=== PATIENT | male | born 1970 | race Caucasian/White ===

== ENCOUNTER 2020-08-13 11:51 | Outpatient (REF) | payer BC, SELFPAY ==
[2020-08-13 13:29] LABS: Anion Gap 10 (12-20); Blood Urea Nitrogen 16 mg/dL (9-16); Calcium 9.5 mg/dL (8.4-10.2); Carbon Dioxide 30 mmol/L (22-29); Chloride 104 mmol/L (96-108); Cholesterol 165 mg/dL; Estimated Glomerular Filt Rate > 60; Glucose Fasting 87 mg/dL (60-99); HDL Cholesterol 45 mg/dL; LDL Cholesterol Calculated 98 mg/dl; Potassium 4.8 mmol/l (3.3-5.1); Sodium 139 mmol/L (135-145); Triglycerides 113 mg/dL
[2020-08-13 13:54] LABS: Prostate Specific Antigen Scr 0.38 ng/mL (<0.05-4.0)
== END 2020-08-13 11:52 | disposition home or self-care (01) ==
LOC: HO.LAB 11:51
PROVIDERS: PCP Nurse Practitioner Family; Visit Provider Nurse Practitioner Family
DX: Z00.00 Encounter for general adult medical examination without abnormal findings (principal); Z12.5 Encounter for screening for malignant neoplasm of prostate; I48.0 Paroxysmal atrial fibrillation
CPT/HCPCS: 80048; 80061; 84153; 84443

== ENCOUNTER 2020-11-19 11:32 | Outpatient (REF) | payer BC, SELFPAY ==
[2020-11-19 11:35] LABS: Urine Cytology See Pathology rpt
== END 2020-11-19 11:33 | disposition home or self-care (01) ==
LOC: HO.LNP 11:32
PROVIDERS: Visit Provider Nurse Practitioner Family
DX: R31.29 Other microscopic hematuria (principal); N39.0 Urinary tract infection, site not specified; Z12.11 Encounter for screening for malignant neoplasm of colon
CPT/HCPCS: 87086; 88112

== ENCOUNTER → 2021-01-05 11:07 | Outpatient (BNVA) | payer BC, SELFPAY | PROVIDERS: PCP Nurse Practitioner Family; Visit Provider Physician Assistant ==

== ENCOUNTER → 2021-01-18 08:48 | Outpatient (BNVA) | payer BC, SELFPAY | PROVIDERS: PCP Nurse Practitioner Family; Visit Provider Internal Medicine Cardiovascular Disease | DX: I48.0 Paroxysmal atrial fibrillation (principal); I10 Essential (primary) hypertension | CPT/HCPCS: 93005 ==

== ENCOUNTER → 2021-02-25 09:16 | Outpatient (REF) | payer BC, SELFPAY ==
--- NOTE | 2021-02-25 09:20 | CA_ITS ---
Acquisition Time: 2021-02-25 10:55:44 Total Exercise Time: 00:09:37 Test Indications: Abnormal ECG Medications: Protocol: MARIA Max HR: 134 BPM 0% of Pred: * BPM Max BP: 160/072 mmHG Max Work Load: 11.1 METS Exercise stress ECHO using Maria protocol, total of 9 min 37 sec, METS 11.10 and HR up to 134. ECHO images taken at rest and immediately after peak exercise heart rate achieved. Definity contrast used. Pt tolerated well, denies any anginal sx, EKG with PVC's at rest that disapeared for some time and returned at peak exercise. No ischemic changes seen during exercise or in recovery. Normotensive response to exercise. Test reviewed with Dr. Pace. STRESS ECHO : Technique : Images were obtained at rest and imemdiately post exercise within 1 minute and 15 seconds Definity contrast was used to enhance endocardial definition Images were obtained in multiple views and compared side to side. Findings: Images at rest were of borderline quality especially parasternal veiws. At rest LV systolic function is normal with normal wall motion. Post exercises images are limites especially parasternal windows which are non diagnostic. On apical views there is overall good augmentation of LV systolic function with no clear regional wall motion abnormalities. Conclusion : Stress echo negative for ischemia with low confidence of interpretation. Referred By: Zeyad Knutson Overread By: YARELI PACE MD
--- NOTE | 2021-02-25 09:20 | CA_ITS ---
Transthoracic Echocardiogram Patient (Last, First, Middle): Puma Whitley, Gender: Male Date of : 1970 Age: 51 Procedure Date: 02/25/2021 Procedure Type: Transthoracic Echocardiogram Location: OP Height: 172.72 cm Weight: 113.4 kg BSA: 2.25 m2 Heart Rate: bpm BP: 110 / 70 mmHg Clinical Writer: KAYLA Aparicio MD: Zeyad Knutson MD Rn Immunology: Wilton Pace MD Symptoms: I48.0 - Paroxysmal atrial fibrillation Study Quality: Fair ECG Rhythm: Sinus with extra beats Conclusions: - Essentially normal study Findings Procedure Information Contrast agent, definity, is being given per protocol without apparent complications. The patient receives contrast. Left Ventricle Normal left ventricular size, thickness, and systolic function. The visually estimated ejection fraction is between 60-65%. Diastolic function is normal for age. Right Ventricle Normal right ventricular cavity size and systolic function. Atria The left atrium is likely dilated. Interatrial shunt cannot be excluded. The right atrium was not well visualized. Aortic Valve The aortic valve structure and function is likely normal. There is no aortic valve stenosis. There is no aortic valve regurgitation. Mitral Valve Normal mitral valve structure and function. There is trace mitral valve regurgitation. There is no mitral valve stenosis. Pulmonic Valve The pulmonic valve was not well visualized. Tricuspid Valve There is trace tricuspid valve regurgitation. The right ventricular systolic pressure is normal. There is no evidence of pulmonary hypertension. Great Vessels All visible segments of the aorta are normal in size. The pulmonary artery was not well visualized. Venous The inferior vena cava is normal in size and collapses greater than 50% with inspiration. Pericardium/Pleural There is no evidence of pericardial effusion. Prior Study Comparison No significant change compared to prior study dated: 02/12/2020. Measurements 2D Linear Measurements RVIDd: 3.63 RVIDd Index: 1.61 IVSd: 1.05 0.6-0.9/0.6-1.0 cm LVIDd: 5.70 3.9-5.3/4.2-5.9 cm LVIDd Index: 2.53 2.4-3.2/2.2-3.1 cm/m2 LVIDs: 4.28 2.0-3.6 cm LVPWd: 1.19 0.7-1.1 cm Ao Root: 3.40 2.1-3.5 cm LA Diam: 4.20 2.7-3.8/3.0-4.0 cm LAIDs Index: 1.87 1.5-2.3 cm/m2 LV Mass: 327.99 67-162/88-224 g LV Mass Index: 145.77 43-95/49-115 g/m2 LVOT Diam: 2.40 3.0+(-)1.3 cm 2D Systolic Function EF 4C: 56.60 >55% EF 2C: 68.00 >55% EF BiP: 63.10 >55% Mitral Valve MV Pk E: 0.77 MV PK A: 0.72 MV Decel Time: 231.00 E/A: 1.10 E'Lateral: 13.90 E'Medial: 9.57 E/E' Med: 8.00 E/E' Lat: 5.50 Aortic Valve AoV Pk Willie: 1.48 AoV Mn Willie: 0.97 AoV VTI: 0.33 AoV Pk Grad: 9.00 Aov Mn Grad: 4.00 HAWK Cont.VTI: 3.96 LVOT LVOT Pk Willie: 1.04 LVOT Mn Willie: 0.63 LVOT VTI: 0.29 LVOT Pk Grad: 4.00 LVOT Mn Grad: 2.00 LVOT Diam: 2.40 LVOT Area: 4.52 Diastolic Function MV Pk E: 0.77 MV Pk A: 0.72 E/A: 1.10 E'Medial: 9.57 E/E' Med: 8.00 E' Laterial: 13.90 E/E' Lat: 5.50 Tricuspid Valve TR Pk Willie: 2.40 TR Pk Grad: 23.00 RA Press: 3.00 RVSP: 26.00 Great Vessels Aorta Ao Root-2D: 3.40 2.0-3.7 cm Ao Asc: 3.10 2.1-3.4 cm Ao Arch: 2.90 Updated in Other Vendor System with Status of Final Wilton Pace MD electronically signed on 02/26/2021 9:21:48 AM with status of Final
== END ==
LOC: HO.CARD 09:16
PROVIDERS: Visit Provider Internal Medicine Cardiovascular Disease
DX: I48.0 Paroxysmal atrial fibrillation (principal)
CPT/HCPCS: 93306; 93350; Q9957

== ENCOUNTER → 2021-03-15 12:50 | Outpatient (BNVA) | payer BC, SELFPAY | PROVIDERS: PCP Nurse Practitioner Family; Visit Provider Internal Medicine Cardiovascular Disease ==

== ENCOUNTER 2021-06-28 09:37 | Outpatient (REF) | payer BC, SELFPAY ==
[2021-06-28 11:59] LABS: TSH reflex Free T4 1.99 uIU/mL (0.32-4.0)
[2021-06-28 12:01] LABS: Alanine Aminotransferase 23 U/L (0-40); Albumin Level 3.8 g/dL (3.5-5.0); Alkaline Phosphatase 70 U/L (39-117); Anion Gap 14 (12-20); Aspartate Amino Transferase 15 U/L (5-37); Bilirubin Total 0.9 mg/dL (0.0-1.0); Blood Urea Nitrogen 16 mg/dL (9-16); Calcium 9.2 mg/dL (8.4-10.2); Carbon Dioxide 25 mmol/L (22-29); Chloride 104 mmol/L (96-108); Cholesterol 165 mg/dL; Estimated Glomerular Filt Rate > 60; Glucose Fasting 105 mg/dL (60-99); HDL Cholesterol 50 mg/dL; LDL Cholesterol Calculated 97 mg/dl; Potassium 4.3 mmol/L (3.3-5.1); Sodium 139 mmol/L (135-145); Total Protein 7.4 g/dL (6.5-8.0); Triglycerides 91 mg/dL
== END 2021-06-28 09:38 | disposition home or self-care (01) ==
LOC: HO.HMGCLDS 09:37
PROVIDERS: PCP Nurse Practitioner Family; Visit Provider Nurse Practitioner Family
DX: E78.5 Hyperlipidemia, unspecified (principal); I10 Essential (primary) hypertension
CPT/HCPCS: 36415; 80053; 80061; 84443

== ENCOUNTER → 2021-08-04 14:44 | Outpatient (BNVA) | payer BC, SELFPAY | PROVIDERS: PCP Nurse Practitioner Family; Referring Provider Nurse Practitioner Family; Visit Provider Internal Medicine Cardiovascular Disease ==

== ENCOUNTER 2021-10-18 08:23 | Outpatient (REF) | payer BC, SELFPAY | END 2021-10-18 08:24 | disposition home or self-care (01) | LOC: HO.HMGCLDS 08:23 | PROVIDERS: PCP Nurse Practitioner Family; Visit Provider Internal Medicine | DX: Z20.822 Contact with and (suspected) exposure to COVID-19 (principal) | CPT/HCPCS: C9803; U0003; U0005 ==

== ENCOUNTER 2021-11-19 11:31 | Day surgery (SDC) | payer BC, SELFPAY ==
[2021-11-12 20:08] VITALS: BMI 37.2
--- NOTE | 2021-11-18 08:50 | P.CONAN_ITS ---
Documented by User: Arianna Sanches NP 11/18/21 09:06 HPI - Anesthesia Eval Consult details Narrative: 51yo M for Upper Endoscopy and Colonoscopy Cardiac cleared at [facility] PAF, no anticoag PMFSH Active Problems Active Problems: All Active Problems (Updated 11/12/21 @ 20:06 by Janeth Montana RN) Physical exam (Acute) Screening PSA (prostate specific antigen) (Acute) Microhematuria (Acute) Screening for colon cancer (Acute) Essential hypertension (Acute) HTN (hypertension) (Acute) Dyslipidemia (Acute) Sleep disorder breathing (Acute) Acid reflux (Acute) PAF (paroxysmal atrial fibrillation) (Acute) Past Medical History Medical History Acid reflux Cardiomyopathy Dyslipidemia Genital herpes in men GERD (gastroesophageal reflux disease) Hypertension PAF (paroxysmal atrial fibrillation) Sleep apnea Family History Family History Father CVD (cardiovascular disease) Myocardial infarction Mother Stroke Sister No problems noted. Paternal Grandmother Pancreatic cancer Surgical History Surgical History History of placement of ear tubes History of removal of cyst Social History Social History Household Members: None Housing: House Alcohol intake: current Alcohol intake frequency: a few times a month Patient Tobacco Use Status: Former Tobacco user Years Smoked: 23 yrs e-Cigarette/Vaping Use: Never Used Second Hand Smoke Exposure: No Use of substances other than those prescribed or required for medical reasons: No Are you DNR?: No Advance Directives: No Advance Directives Information Provided: No Advance Directives on File: No Recently lost weight without trying: No Nutrition Risks: No Nutritional Risk Current occupational status: employed 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 Stress echo negative for ischemia with low confidence of interpretation. ECHO 01/2021 Conclusions: - Essentially normal study ? ? Assessment and Plan Assessment Anesthesia Assessment: Chart Reviewed Documented by User: Roxy Rivera MD 11/19/21 13:11 [facility] Past Medical History Medical History Acid reflux Cardiomyopathy Dyslipidemia Genital herpes in men GERD (gastroesophageal reflux disease) Hypertension PAF (paroxysmal atrial fibrillation) Sleep apnea Family History Family History Father CVD (cardiovascular disease) Myocardial infarction Mother Stroke Sister No problems noted. Paternal Grandmother Pancreatic cancer Family history of problems with anesthesia: No Surgical History Surgical History History of placement of ear tubes History of removal of cyst History of Problems with Anesthesia: No Social History Social History Household Members: None Housing: House Alcohol intake: current Alcohol intake frequency: a few times a month Patient Tobacco Use Status: Former Tobacco user Years Smoked: 23 yrs e-Cigarette/Vaping Use: Never Used Second Hand Smoke Exposure: No Use of substances other than those prescribed or required for medical reasons: No Are you DNR?: No Advance Directives: No Advance Directives Information Provided: No Advance Directives on File: No Recently lost weight without trying: No Nutrition Risks: No Nutritional Risk Current occupational status: employed 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 Mills saw patient, 5mg metoprolol IV if HR lower cleared to prceeded) Final Preanesthetic Review: No Changes in Pt Med Stat, Meds/Allgs Chart Reviewed and Consent Obtained/Reviewed Patient Risk: Intermediate Procedure Risk: Intermediate Anesthetic Plan Anesthetic Plan: MAC: Disposition: Standard PACU
[2021-11-19] VITALS (7 sets, daily range): BP systolic 118–139; BP diastolic 68–102; PULSE 85–105; RESP 16–20; TEMP 36.9–37.1; O2SAT 98–100
--- NOTE | 2021-11-19 12:27 | ECG_ITS ---
Test Reason : preop Blood Pressure : / mmHG Vent. Rate : 122 BPM Atrial Rate : 000 BPM P-R Int : 000 ms QRS Dur : 080 ms QT Int : 266 ms P-R-T Axes : 000 -31 016 degrees QTc Int : 379 ms Atrial fibrillation with rapid ventricular response with premature ventricular or aberrantly conducted complexes Left axis deviation Cannot rule out Inferior infarct , age undetermined Abnormal ECG When compared with ECG of 31-JUL-2019 15:55, No significant change was found Referred By: Kalpana Lynn Electronically Signed By:Zeyad Knutson
--- NOTE | 2021-11-19 12:44 | PC.NURSE ---
MD JAY AWARE OF PATYIENT BEING IN AFIB. WKG ALREADY PERFORMED AND A CORTEXT TO MD WHEELER PER ANESTHESIA. MD WHEELER TO COME AND SEE PATIENT BY THE BEDSIDE. DENIES CP, DIZZINESS, SOB,. SLIGHT NAUSEA.
--- NOTE | 2021-11-19 12:51 | PC.NURSE ---
MD BARRONOOD EVALUATING PATIENT BY THE BEDSIDE.
--- NOTE | 2021-11-19 12:58 | MHC.SHP ---
Pre-Procedural Eval Section A Date of Service: 11/19/21 The patient is an INPATIENT: No Section B Chief Complaint: screening,reflux disease Relevant Family History (Specify if Yes): Yes Relevant Social History: Tobacco Use (former smoker) Present Medications: see Short Stay Collaborative assessment Medical History: Significant History (Acid reflux Cardiomyopathy Dyslipidemia GERD (gastroesophageal reflux disease) PAF (paroxysmal atrial fibrillation)) History of Previous Operations: Relevant previous surgery/procedure and date(s) (History of removal of cyst) Allergies: Allergies Allergy/AdvReac Type Severity Reaction Status Date / Time No Known Allergies Allergy Verified 08/04/21 14:51 Review of Systems Sugical H&P ROS: Negative: Constitution, Cardiovascular, Respiratory and Gastrointestinal Exam Surgical H&P Exam: Normal: Lungs, Normal: Extremities and Normal: Abdomen and Significant Findings: Heart (irregulary irregular) Plan Diagnosis/Plan: Change (Patient noted to be in AF with HR of 125.) Pt was noted to be in AF with HR of 125. He was seen by Dr Knutson and given IV metoprolol followed by a decrease in HR to less than 100. Decision was made by anesthesiology to proceed with EGD and Colon. I have reviewed the history and physical and performed a pertinent physical examination on my patient. No changes have occurred unless specified.
[2021-11-19] MEDS: Lactated Ringers 1,000 ML 100 ML IVCONT (13:01)
--- NOTE | 2021-11-19 13:01 | PC.NURSE ---
PATIENT AWARE OF PLAN OF CARE. MD ORTIZ IS GIVING METOPROLOL 5MG IV. PATIENT REMAINS ASYMPTOMATIC. WHEN HEART RATE ADVANCED TO 135 PATIENT FELT IT WHEN HE WAS AT [facility] 90 DEGREES IN BED.
--- NOTE | 2021-11-19 13:13 | PC.NURSE ---
MD ORTIZ ONLY GAVE METOPROLOL IV 5MG. ROXY WELL. FLUIDS INFUSING PATENTLY.
--- NOTE | 2021-11-19 13:22 | PM.OP ---
Brief Operative Note Date of Service: 11/19/21 Pre-op diagnosis: Colon cancer screening, GERD Post-op diagnosis: other (Gastritis, gastric polyps, GERD, colon polyp, diverticulosis) Procedure: FLEXIBLE TRANSORAL UPPER GASTROINTESTINAL ENDOSCOPY WITH BIOPSIES AND COLONOSCOPY TILL CECUM WITH SNARE POLYPECTOMY UPPER ENDOSCOPY Consent: Indications for the procedure and potential complications of bleeding, perforation, reaction to medications and missed diagnosis were discussed with the patient and informed consent was obtained. Instrument: Olympus GIF H 190 mid size upper endoscope Monitoring: Vital signs and clinical assessment, continuous EKG monitoring, Pulse oximetry, Carbon Dioxide monitoring and blood pressure monitoring were done throughout the procedure. Procedure: The patient was placed in the left lateral decubitis position and pre-procedure medications were administered and a bite block was placed. The endoscope was inserted into the mouth and advanced under direct vision to the third part of duodenum. A careful inspection was made as the upper endoscope was withdrawn including a retroflexed examination of the proximal stomach; Findings and interventions are described below. Findings: Larynx: Normal Esophagus: GE junction at 38 cms. No esophagitis or French's. Stomach: Multiple 1-2 cms benign appearing polyps in the gastric body - biopsied. Minimal gastric erythema. Biopsies were obtained. Grade 2 flap valve on retroflexed examination of the cardia. Duodenum: Normal bulb and descending duodenum Intervention: Biopsies as noted above COLONOSCOPY PROCEDURE NOTE Consent: Indications for the procedure and potential complications of bleeding, perforation, reaction to medications and missed diagnosis were discussed with the patient and informed consent was obtained. Instrument: Olympus PCF H 190 L variable stiffness pediatric colonoscope Monitoring: Vital signs and clinical assessment, intermittent blood pressure monitoring, continuous EKG monitoring, Pulse oximetry and Carbon Dioxide monitoring were done throughout the procedure. Colon withdrawl time was 32 minutes. Procedure: The patient was placed in the left lateral decubitis position and pre-procedure medications were administered. After a digital rectal examination of the ano-rectum, the video colonoscope was inserted into the rectum and advanced through the colon to the cecum. The colonoscope was slowly withdrawn in a retrograde panoramic fashion and the colon mucosa was carefully examined including a retroflexed view of the rectum. Findings and interventions are described below. Procedure Difficulty: : Without difficulty Findings: Terminal Ileum: Not evaluated Cecum: Normal Ascending Colon: Normal Transverse Colon: A 7-8 mm sessile polyp in the TC removed with a cold snare. Descending Colon: Normal Sigmoid Colon: Moderate diverticulosis Rectum: Normal Ano-rectum: Moderate internal hemorrhoids Colon preparation: Good after copious irrigation Impression and Post Procedure Diagnosis: Endoscopy Findings: STOMACH: Multiple 1-2 cms benign appearing polyps in the gastric body - biopsied. Minimal gastric erythema. Biopsies were obtained. Colonoscopy Findings: One small polyp removed Moderate diverticulosis seen in the sigmoid colon Moderate hemorrhoids on retroflexed exam. Plan: Await pathology results Patient has an appointment on 12/06/21 in the GI Clinic with RA Harry . Repeat Colonoscopy interval based on path results - in 5 years if polyps are adenomatous and 10 years if polyps are hyperplastic. Above findings were reviewed with the patient and GERD, colon polyps and diverticulosis handouts were given in the discharge area Surgeon: Darren Ascencio MD Anesthesia: MAC (Tanja Mcclain CRNA) Was an Dental Prosthetist used for this Procedure?: Yes Dental Prosthetist: Ariel Skelton Estimated blood loss (mL): 1 Pathology: other (A- GASTRIC ANTRUM BXS R/O H. PYLORI B- GASTRIC POLYP C- TRANSVERSE COLON POLYP) Condition: stable Disposition: PACU
--- NOTE | 2021-11-19 13:23 | W.PM.OPN ---
Operative Note Operative Note Date of Service: 11/19/21 Narrative: Pre-op diagnosis: Colon cancer screening, GERD Post-op diagnosis:?other (Gastritis, gastric polyps, GERD, colon polyp, diverticulosis) Procedure: FLEXIBLE TRANSORAL UPPER GASTROINTESTINAL ENDOSCOPY WITH BIOPSIES AND COLONOSCOPY TILL CECUM WITH SNARE POLYPECTOMY UPPER ENDOSCOPY Consent:?Indications for the procedure and potential complications of bleeding, perforation, reaction to medications and missed diagnosis were discussed with the patient and informed consent was obtained. Instrument:?Olympus GIF H 190 mid size upper endoscope Monitoring: Vital signs and clinical assessment, continuous EKG monitoring, Pulse oximetry, Carbon Dioxide monitoring and blood pressure monitoring were done throughout the procedure. Procedure:?The patient was placed in the left lateral decubitis position and pre-procedure medications were administered and a bite block was placed. The endoscope was inserted into the mouth and advanced under direct vision to the third part of duodenum. A careful inspection was made as the upper endoscope was withdrawn including a retroflexed examination of the proximal stomach; Findings and interventions are described below. Findings: Larynx:? Normal Esophagus:?GE junction at 38 cms.? No esophagitis or French's. Stomach:?Multiple 1-2 cms benign appearing polyps in the gastric body - biopsied. Minimal gastric erythema. Biopsies were obtained. Grade 2 flap valve on retroflexed examination of the cardia. Duodenum:?Normal bulb and descending duodenum Intervention:?Biopsies as noted above COLONOSCOPY PROCEDURE NOTE Consent:?Indications for the procedure and potential complications of bleeding, perforation, reaction to medications and missed diagnosis were discussed with the patient and informed consent was obtained. Instrument:?Olympus PCF H 190 L variable stiffness pediatric colonoscope Monitoring:?Vital signs and clinical assessment, intermittent blood pressure monitoring, continuous EKG monitoring, Pulse oximetry and Carbon Dioxide monitoring were done throughout the procedure. Colon withdrawl time was 32 minutes. Procedure:?The patient was placed in the left lateral decubitis position and pre-procedure medications were administered. After a digital rectal examination of the ano-rectum, the video colonoscope was inserted into the rectum and advanced through the colon to the cecum. The colonoscope was slowly withdrawn in a retrograde panoramic fashion and the colon mucosa was carefully examined including a retroflexed view of the rectum. Findings and interventions are described below. Procedure Difficulty:?: Without difficulty Findings: Terminal Ileum: Not evaluated Cecum:? Normal Ascending Colon:??Normal Transverse Colon:??A 7-8 mm sessile polyp in the TC removed with a cold snare. Descending Colon:? Normal Sigmoid Colon:??Moderate diverticulosis Rectum:??Normal Ano-rectum:??Moderate internal hemorrhoids Colon preparation:? Good after copious irrigation Impression and Post Procedure Diagnosis: Endoscopy Findings: STOMACH: Multiple 1-2 cms benign appearing polyps in the gastric body - biopsied. Minimal gastric erythema. Biopsies were obtained.? Colonoscopy Findings: One small polyp removed Moderate diverticulosis seen in the sigmoid colon Moderate hemorrhoids on retroflexed exam. Plan: Patient has an appointment on 12/06/21 in the GI Clinic with RA Harry . Repeat Colonoscopy interval based on path results - in 5 years if polyps are adenomatous and 10 years if polyps are hyperplastic. Above findings were reviewed with the patient and GERD, colon polyps and diverticulosis handouts were given in the discharge area Surgeon: Darren Ascencio MD Anesthesia:?MAC (Tanja Mcclain CRNA) Was an Director Of Critical Care used for this Procedure?:?Yes Director Of Critical Care:?Ariel Skelton Estimated blood loss (mL):?1 Pathology:?other (A- GASTRIC ANTRUM BXS? R/O H. PYLORI? B- GASTRIC POLYP? C- TRANSVERSE COLON POLYP) Condition:?stable Disposition:?PACU
--- NOTE | 2021-11-19 14:27 | PM.CNCAR ---
History of Present Illness History of Present Illness Date of Service: 11/19/21 Requesting physician: Kalpana Lynn Chief complaint: Afib Narrative: 51-year-old gentlemanWho has history of paroxysmal atrial fibrillation, hypertension and alcohol use was presenting for screening colonoscopy. He was noted to be in AFib with RVR. He said he felt some palpitations off and on and felt some shortness of breath and dizziness today. Previously he had atrial fibrillation but reverted to sinus rhythm. Due to his low chads Vasc score he has not been on anticoagulation. He said he drank 12 pack of beer over the weekend which is more than usual. We have been asked whether colonoscopy can be performed right now and to help manage his atrial fibrillation. He took 100 mg of Toprol-XL last night. [facility] Past Medical History Medical History (Updated 11/19/21 @ 14:30 by Zeyad Knutson MD) Acid reflux Cardiomyopathy Dyslipidemia Genital herpes in men GERD (gastroesophageal reflux disease) Hypertension PAF (paroxysmal atrial fibrillation) Sleep apnea Family History Family History Father CVD (cardiovascular disease) Myocardial infarction Mother Stroke Sister No problems noted. Paternal Grandmother Pancreatic cancer Surgical History Surgical History History of placement of ear tubes History of removal of cyst Social History Social History Household Members: None Housing: House Alcohol intake: current Alcohol intake frequency: a few times a month Patient Tobacco Use Status: Former Tobacco user Years Smoked: 23 yrs e-Cigarette/Vaping Use: Never Used Second Hand Smoke Exposure: No Use of substances other than those prescribed or required for medical reasons: No Are you DNR?: No Advance Directives: No Advance Directives Information Provided: No Advance Directives on File: No Recently lost weight without trying: No Nutrition Risks: No Nutritional Risk Current occupational status: employed 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 NECK: no carotid bruit, no jugular venous distention. SKIN: no suspicious lesions, warm and dry. HEART: no murmurs, irregular rate and rhythm. LUNGS: clear to auscultation bilaterally. ABDOMEN: soft, nontender. EXTREMITIES: no edema. PERIPHERAL PULSES: equal. NEUROLOGIC: No gross deficits, AAO X 3 Assessment and Plan (1) PAF (paroxysmal atrial fibrillation): Status: Acute Pleasant 51-year-old gentleman who is here for screening colonoscopy and noted to be in AFib with RVR. Blood pressure is in 130s. I think we can try Lopressor 5 mg IV to see how he responds to beta-satish. I think he will tolerate beta-satish IV and his heart rate will improve with beta-satish and sedation. I think we can proceed with colonoscopy but I think it is up to anesthesia and the GI team to decide. In any case at discharge I will increase his Toprol-XL to 150 mg. We will arrange a Holter monitor for him as outpatient. Currently I do not want to anticoagulate him. Once again he should cut back on his alcohol use. Thank you for allowing me to participate in the care of your patient. Please feel free to contact me if you have any questions. Procedures Date of Service Date of Service: 11/19/21
== END 2021-11-19 15:43 | disposition home or self-care (01) ==
PROVIDERS: PCP Nurse Practitioner Family; Visit Provider Internal Medicine Gastroenterology
PROC: (CPT 45385; principal; 2021-11-19 13:00)
DX: Z12.11 Encounter for screening for malignant neoplasm of colon (principal); D12.3 Benign neoplasm of transverse colon; K57.30 Diverticulosis of large intestine without perforation or abscess without bleeding; K64.8 Other hemorrhoids; K21.9 Gastro-esophageal reflux disease without esophagitis; K31.7 Polyp of stomach and duodenum; K29.70 Gastritis, unspecified, without bleeding; I48.0 Paroxysmal atrial fibrillation; I42.9 Cardiomyopathy, unspecified; E78.5 Hyperlipidemia, unspecified; Z79.899 Other long term (current) drug therapy; Z87.891 Personal history of nicotine dependence
CPT/HCPCS: 45385; 43239; 88305; 88342; 93005

== ENCOUNTER 2023-01-26 08:49 | Outpatient (REF) | payer BC, SELFPAY ==
[2023-01-26 08:58] LABS: MANUAL DIFF FLAG NO
[2023-01-26 09:32] LABS: Basophils Absolute Auto 0.1 X10*3/uL (0.0-0.2); Basophils Percent Auto 0.6 % (0-2); Eosinophils Absolute Auto 0.6 X10*3/uL (0.0-0.4); Eosinophils Percent Auto 6.6 % (0-4); Hemoglobin 14.9 g/dl (14.0-18.0); Imm Gran Abs Auto 0.04 X10*3/uL (0.00-0.03); Imm Gran Pct Auto 0.5 % (0.0-0.4); Lymphocytes Absolute Auto 2.2 X10*3/uL (1.2-4.9); Lymphocytes Percent Auto 25.7 % (20-40); Mean Corpuscular HGB Conc 33.9 g/dl (31.0-36.0); Mean Corpuscular Hemoglobin 32.5 pg (27.0-33.0); Mean Corpuscular Volume 95.9 fL (80.0-98.0); Mean Platelet Volume 11.2 fL (9.4-12.4); Monocytes Percent Auto 12.2 % (2-11); Neutrophils Absolute Auto 4.6 x10*3/uL (2.0-8.3); Neutrophils Percent Auto 54.4 % (45-73); Platelet Count 274 X10*3/uL (160-400); Red Blood Count 4.59 X10*6/uL (4.60-5.80); Red Cell Distribution Width 11.9 % (11.0-16.0); White Blood Count 8.5 X10*3/uL (4.8-10.8)
[2023-01-26 09:52] LABS: Appearance Urine Clear; Color Urine Yellow; Glucose Urine UA Negative (Negative); Leukocyte Esterase Urine Negative (Negative); Nitrite Urine Negative (Negative); PH 6.5 (5.0-9.0); Urine Blood Negative (Negative); Urine Ketones Negative (Negative); Urine Protein Negative (Neg-Trace)
[2023-01-26 10:45] LABS: Prostate Specific Antigen Scr 0.38 ng/mL (<0.05-4.0); TSH reflex Free T4 1.64 uIU/mL (0.32-4.0)
[2023-01-26 10:47] LABS: Alanine Aminotransferase 19 U/L (0-40); Albumin Level 3.6 g/dL (3.5-5.0); Alkaline Phosphatase 64 U/L (39-117); Anion Gap 13 (12-20); Aspartate Amino Transferase 19 U/L (5-37); Bilirubin Total 0.9 mg/dL (0.0-1.0); Blood Urea Nitrogen 20 mg/dL (9-16); Calcium 9.3 mg/dL (8.4-10.2); Carbon Dioxide 26 mmol/L (22-29); Chloride 106 mmol/L (96-108); Cholesterol 184 mg/dL; Estimated Glomerular Filt Rate > 60; Glucose Fasting 91 mg/dL (60-99); HDL Cholesterol 37 mg/dL; LDL Cholesterol Calculated 132 mg/dl; Potassium 4.7 mmol/L (3.3-5.1); Sodium 140 mmol/L (135-145); Total Protein 6.9 g/dL (6.5-8.0); Triglycerides 77 mg/dL
== END 2023-01-26 08:50 | disposition home or self-care (01) ==
LOC: HO.LAB 08:49
PROVIDERS: PCP Nurse Practitioner Family; Visit Provider Nurse Practitioner Family
DX: Z00.00 Encounter for general adult medical examination without abnormal findings (principal); Z12.5 Encounter for screening for malignant neoplasm of prostate; I48.19 Other persistent atrial fibrillation; I10 Essential (primary) hypertension
CPT/HCPCS: 36415; 80053; 80061; 81003; 84153; 84443; 85025; 93005

== ENCOUNTER → 2023-02-24 07:56 | Outpatient (REF) | payer BC, SELFPAY ==
--- NOTE | 2023-02-24 07:58 | CA_ITS ---
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 The visually estimated ejection fraction is between 55-60%. - Normal right ventricular cavity size. There is borderline right ventricular systolic function. - The left atrium is moderately dilated. The right atrium is mildly dilated. Findings Procedure Information Contrast agent, definity, is being given per protocol without apparent complications. Left Ventricle Normal left ventricular size, thickness, and systolic function. The visually estimated ejection fraction is between 55-60%. There is no evidence of regional wall motion abnormalities. Diastolic function is indeterminate on the basis of available data. Right Ventricle Normal right ventricular cavity size. There is borderline right ventricular systolic function. Atria The left atrium is moderately dilated. The right atrium is mildly dilated. Aortic Valve Normal aortic valve structure and function. There is no aortic valve stenosis. There is no aortic valve regurgitation. Mitral Valve Normal mitral valve structure and function. There is trace mitral valve regurgitation. There is no mitral valve stenosis. Pulmonic Valve Normal pulmonic valve structure and function. There is trace pulmonic valve regurgitation. Tricuspid Valve Normal tricuspid valve structure and function. There is trace tricuspid valve regurgitation. Normal right atrial pressure. There is no evidence of pulmonary hypertension. Great Vessels All visible segments of the aorta are normal in size. The visualized portions of the pulmonary artery and branches are normal. Venous The inferior vena cava is normal in size and collapses greater than 50% with inspiration. Pericardium/Pleural There is no evidence of pericardial effusion. Prior Study Comparison Changes noted compared to prior study dated: 02/25/2021. Moderately dilated LA. Measurements 2D Linear Measurements LVOT Diam: 2.40 3.0+(-)1.3 cm 2D Systolic Function EF 4C: 56.00 >55% EF 2C: 51.50 >55% EF BiP: 53.40 >55% Mitral Valve MV Pk E: 0.56 MV Decel Time: 205.00 E'Lateral: 16.00 E'Medial: 8.49 E/E' Med: 6.60 E/E' Lat: 3.50 PHT: 60.00 MVA PHT: 3.67 Decel [place]: 2.72 Aortic Valve AoV Pk Willie: 0.99 AoV Mn Willie: 0.70 AoV VTI: 0.18 AoV Pk Grad: 4.00 Aov Mn Grad: 2.00 HAWK Cont.VTI: 2.64 LVOT LVOT Pk Willie: 0.57 LVOT Mn Willie: 0.39 LVOT VTI: 0.11 LVOT Pk Grad: 1.00 LVOT Mn Grad: 1.00 LVOT Diam: 2.40 LVOT Area: 4.52 Diastolic Function MV Pk E: 0.56 E'Medial: 8.49 E/E' Med: 6.60 E' Laterial: 16.00 E/E' Lat: 3.50 Right Ventricle TAPSE (mm): 15.90 TVS' Willie: 8.56 Tricuspid Valve TR Pk Willie: 2.02 TR Pk Grad: 16.00 RA Press: 3.00 RVSP: 19.00 Great Vessels Aorta Sinus of Valsalva: 3.55 2.0-3.5 cm Ao Asc: 3.20 2.1-3.4 cm Updated in Other Vendor System with Status of Final Zeyad Knutson MD electronically signed on 02/25/2023 10:39:22 PM with status of Final
== END ==
LOC: HO.CARD 07:56
PROVIDERS: PCP Nurse Practitioner Family; Visit Provider Internal Medicine Cardiovascular Disease
DX: I48.19 Other persistent atrial fibrillation (principal)
CPT/HCPCS: 93306; Q9957

== ENCOUNTER 2023-02-27 08:35 | Outpatient (REF) | payer BC, SELFPAY ==
[2023-03-08 17:48] LABS: Testosterone, Free 62.5 pg/mL (35.0-155.0); Testosterone, Total 381 ng/dL (250-1100)
== END 2023-02-27 08:36 | disposition home or self-care (01) ==
LOC: HO.HMGCLDS 08:35
PROVIDERS: PCP Nurse Practitioner Family; Visit Provider Nurse Practitioner Family
DX: N52.9 Male erectile dysfunction, unspecified (principal)
CPT/HCPCS: 36415; 84402; 84403

== ENCOUNTER → 2023-05-03 14:48 | Outpatient (BNVA) | payer BC, SELFPAY | PROVIDERS: Visit Provider Internal Medicine Cardiovascular Disease ==

== ENCOUNTER 2023-07-17 07:47 | Outpatient (AMB) | payer BC, SELFPAY ==
[2023-07-17 07:52] VITALS: BP 112/68; PULSE 116; O2SAT 98; BMI 39.3
--- NOTE | 2023-07-17 07:52 | MHC.PC.OV ---
Vital Signs 07/17/23 07:52 Height 5 ft 8 in Weight 258 lb 8 oz BMI 39.3 BP 112/68 Blood Pressure Location Rt brachial Position Sitting Pulse 116 H Pulse Source Pulse Oximeter Pulse Oximetry (%) 98 Oxygen Delivery Method Room Air Intake Visit Reasons: Annual PE Allergies No Known Allergies Allergy (Verified 07/17/23 08:52) Medication List - Last Reconciled 07/17/23 by JACOB Earl atorvastatin 40 mg PO DAILY 90 days cholecalciferol (vitamin D3) 50 mcg PO DAILY 90 days fluocinonide 0.05% 1 appl topical BID lisinopril-hydrochlorothiazide 20-12.5 mg 1 tab PO DAILY 90 days metoprolol succinate ER (Toprol XL) 150 mg (3 x 50 mg) PO DAILY omeprazole 20 mg PO DAILY 90 days tadalafil (Cialis) 10 mg PO DAILY PRN 10 days valacyclovir 500 mg PO DAILY Tobacco use date assessed: 07/17/23 Dental Screening Dental Screen Date: 07/17/23 Did you have a dental visit in the last 12 months?: Yes Did you have a dental problem in the last 6 months where you did not have access to dental care?: No Was dental information given to patient?: Patient has dentist HPI Annual PE HPI Details Pt is here for a PE. Will order labs. Colon screen is up to date. PSA is up to date. Pt follows up with cardiology (afib, currently in afib, without symptoms). Spoke to pt about cutting down on alcohol use. [facility] Medical History Sleep apnea Genital herpes in men Hypertension Acid reflux GERD (gastroesophageal reflux disease) Dyslipidemia Cardiomyopathy PAF (paroxysmal atrial fibrillation) Surgical History History of placement of ear tubes History of removal of cyst Family History Father CVD (cardiovascular disease) Myocardial infarction Mother Stroke Sister No problems noted. 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 Cognitive needs: No Hearing needs: No Vision needs: Yes Questionnaire Thrive Questionnaire Date Thrive assessed: 05/20/21 Review of Systems Const Denies chills and Denies fever(s) Eyes Denies blurry vision ENT Denies vertigo, Denies dizziness and Denies sore throat Card Denies chest pain at rest, Denies chest pain with activity, Denies diaphoresis, Denies dyspnea and Denies dyspnea on exertion Resp Denies cough, Denies dyspnea, Denies dyspnea on exertion and Denies wheezing GI Denies abdominal pain, Denies melena, Denies hematochezia, Denies constipation, Denies diarrhea and Denies loose stools Denies hematuria Musc Denies numbness and Denies tingling Skin/Breast Denies lesions Neuro Denies vertigo, Denies dizziness, Denies numbness and Denies tingling Psych Denies anxiety, Denies depression, Denies homicidal ideation, Denies suicidal ideation and Denies other (substance abuse) Aller/Immun Denies wheezing Physical exam (Primary Care) Vital Signs: Last Vital Signs Pulse 116 H 07/17/23 07:52 BP 112/68 07/17/23 07:52 Pulse Ox 98 07/17/23 07:52 Oxygen Delivery Method Room Air 07/17/23 07:52 BMI result Body Mass Index 39.3 Tobacco/Smoking Status: Tobacco use Status Tobacco use date assessed 07/17/23 07/17/23 07:57 Patient Tobacco Use Status Current someday Tobacco 07/17/23 07:57 Tobacco use type Cigarette 07/17/23 07:57 e-Cigarette/Vaping Use Never Used 07/17/23 07:57 Thrive Assessment: Date of Thrive Assessment Date Thrive assessed 05/20/21 07/17/23 07:57 Const General: cooperative Nutritional Appearance: obese Orientation/consciousness: patient oriented x3 HENMT Head: Yes normal to inspection, Yes normocephalic and Yes atraumatic Ears: TM's normal bilaterally Eyes General: appearance normal, both eyes and all related structures Alignment and Position: alignment normal and position normal Neck Neck: Yes normal visual inspection and Yes no lymphadenopathy Thyroid: Thyroid normal Resp Effort & Inspection: normal respiratory effort Auscultation: clear to auscultation bilaterally Cardio Rate: regular rate Rhythm: abnormal rhythm irregularly irregular Heart sounds: S1 normal heart sound present, S2 normal heart sound present and no murmurs GI Palpation (GI): Soft to palpation and nontender Auscultation: normal bowel sounds Other: refuses BRYANNA Male General Exam: Yes normal external exam Penis: normal penis Scrotum: scrotum normal, testes descended bilaterally and no inguinal hernias Testes: no testicular mass Skin Rashes: no rashes Neuro General: patient oriented x3, moves all extremities, no focal motor deficits and deep tendon reflexes 2+ bilaterally Romberg Test: Negative Extrem Right lower extremity: edema (trace) Left lower extremity: edema (trace) Psych Appearance: grossly normal Mental Status: mental status grossly normal Speech and movement: Normal speech and movement present Affect: normal affect Attitude: cooperative Thought process: Normal thought process present Thought content: Normal thought content present Insight: Good insight present (Psych) Judgement: Good judgement present (Psych) Assessment and Plan Assessment & Plan (1) PAF (paroxysmal atrial fibrillation): Code(s): I48.0 - Paroxysmal atrial fibrillation Plan: EKG done in office (2) Physical exam: Code(s): Z00.00 - Encounter for general adult medical examination without abnormal findings Plan: Labs have been ordered Plan The patient agreed to the use of a medical charge entry specialist for this encounter. Scribed for JACOB Buck by Milka Wagoner medical charge entry specialist, on 07/17/2023 at 08:00 EST. Orders: Orders AMB EKG-In Office Today I48.0 - Paroxysmal atrial fibrillation, Z00.00 - Encounter for general adult medical examination without abnormal findings Coding Level of Care Code Est Pt Prev Care 40-64y(03827) Diagnoses PAF (paroxysmal atrial fibrillation) I48.0 Physical exam Z00.00
== END 2023-07-17 08:34 | disposition home or self-care (01) ==
PROVIDERS: Visit Provider Nurse Practitioner Family
DX: I48.0 Paroxysmal atrial fibrillation (principal); Z00.00 Encounter for general adult medical examination without abnormal findings
CPT/HCPCS: 99396

== ENCOUNTER 2023-07-17 08:39 | Outpatient (REF) | payer BC, SELFPAY ==
[2023-07-17 11:22] LABS: MANUAL DIFF FLAG NO
[2023-07-17 11:25] LABS: Appearance Urine Clear; Color Urine Yellow; Glucose Urine UA Negative (Negative); Leukocyte Esterase Urine Trace (Negative); Nitrite Urine Negative (Negative); PH 7.5 (5.0-9.0); UMIC TRIGGER UACC YES; Urine Blood Negative (Negative); Urine Ketones Negative (Negative); Urine Protein 100 (2+) mg/dL (Neg-Trace)
[2023-07-17 11:34] LABS: Basophils Absolute Auto 0.1 X10*3/uL (0.0-0.2); Basophils Percent Auto 0.5 % (0-2); Eosinophils Absolute Auto 0.5 X10*3/uL (0.0-0.4); Eosinophils Percent Auto 5.7 % (0-4); Hematocrit 43.7 % (42.0-52.0); Hemoglobin 14.7 g/dl (14.0-18.0); Imm Gran Abs Auto 0.03 X10*3/uL (0.00-0.03); Imm Gran Pct Auto 0.3 % (0.0-0.4); Lymphocytes Absolute Auto 1.5 X10*3/uL (1.2-4.9); Lymphocytes Percent Auto 16.1 % (20-40); Mean Corpuscular HGB Conc 33.6 g/dl (31.0-36.0); Mean Corpuscular Hemoglobin 32.5 pg (27.0-33.0); Mean Corpuscular Volume 96.5 fL (80.0-98.0); Mean Platelet Volume 11.3 fL (9.4-12.4); Monocytes Absolute Auto 1.1 X10*3/uL (0.1-1.2); Monocytes Percent Auto 11.9 % (2-11); Neutrophils Percent Auto 65.5 % (45-73); Platelet Count 299 X10*3/uL (160-400); Red Blood Count 4.53 X10*6/uL (4.60-5.80); Red Cell Distribution Width 12.3 % (11.0-16.0); White Blood Count 9.1 X10*3/uL (4.8-10.8)
[2023-07-17 11:46] LABS: Bacteria Urine None Seen (None Seen); Granular Casts Urine Present; Squamous Epithelial Cell Urine 0-2 /HPF (0-2); WBC Urine 0-5 /HPF (0-5)
[2023-07-17 12:20] LABS: Prostate Specific Antigen Scr 0.36 ng/mL (<0.05-4.0)
[2023-07-17 12:32] LABS: Alanine Aminotransferase 22 U/L (0-40); Albumin Level 3.6 g/dL (3.5-5.0); Alkaline Phosphatase 67 U/L (39-117); Anion Gap 10 (12-20); Aspartate Amino Transferase 20 U/L (5-37); Bilirubin Total 0.8 mg/dL (0.0-1.0); Blood Urea Nitrogen 14 mg/dL (9-16); Calcium 9.6 mg/dL (8.4-10.2); Carbon Dioxide 27 mmol/L (22-29); Chloride 103 mmol/L (96-108); Cholesterol 182 mg/dL (<200); Estimated Glomerular Filt Rate > 60; Glucose Fasting 103 mg/dL (60-99); HDL Cholesterol 44 mg/dL (>40); LDL Cholesterol Calculated 105 mg/dL (<100); Potassium 4.1 mmol/L (3.3-5.1); Sodium 136 mmol/L (135-145); TSH reflex Free T4 2.53 uIU/mL (0.32-4.0); Total Protein 7.4 g/dL (6.5-8.0); Triglycerides 166 mg/dL (<150)
== END 2023-07-17 08:40 | disposition home or self-care (01) ==
LOC: HO.HMGCLDS 08:39
PROVIDERS: PCP Nurse Practitioner Family; Visit Provider Nurse Practitioner Family
DX: Z00.00 Encounter for general adult medical examination without abnormal findings (principal); Z12.5 Encounter for screening for malignant neoplasm of prostate; I10 Essential (primary) hypertension; E78.5 Hyperlipidemia, unspecified; I48.91 Unspecified atrial fibrillation; Z13.0 Encounter for screening for diseases of the blood and blood-forming organs and certain disorders involving the immune mechanism
CPT/HCPCS: 36415; 80053; 80061; 81001; 84153; 84443; 85025

== ENCOUNTER 2023-09-11 10:42 | Outpatient (AMB) | payer BC, SELFPAY ==
[2023-09-11 11:07] VITALS: BP 110/82; PULSE 83; BMI 39.6
--- NOTE | 2023-09-11 11:07 | MHC.OFFVIS ---
Intake Vital Signs 09/11/23 11:07 Height 5 ft 8 in Weight 260 lb 2.327 oz BMI 39.6 BP 110/82 Blood Pressure Location Lt brachial Position Sitting Pulse 83 Intake Visit Reasons: 4 mth f/up Intake Note: 4 month follow up Content Manager Required: No Accompanied by: Self / Same As Patient Allergies No Known Allergies Allergy (Verified 09/11/23 11:09) Medication List - Last Reconciled 09/11/23 by Zeyad Knutson MD atorvastatin 40 mg PO DAILY 90 days cholecalciferol (vitamin D3) 50 mcg PO DAILY 90 days fluocinonide 0.05% 1 appl topical BID lisinopril-hydrochlorothiazide 20-12.5 mg 1 tab PO DAILY 90 days metoprolol succinate ER (Toprol XL) 150 mg (3 x 50 mg) PO DAILY omeprazole 20 mg PO DAILY 90 days tadalafil (Cialis) 10 mg PO DAILY PRN 10 days valacyclovir 500 mg PO DAILY HPI HPI Comments History of Present Illness Details Pleasant 53-year-old gentleman was background of of paroxysmal atrial fibrillation and borderline reduced ejection fraction of 50 55% in the setting of alcohol use. He has cut back on his alcohol use and his ejection fraction has improved back to normal. Previously he reverted back to sinus rhythm. He was trying to be active and was using a bike at home. On previous visit he was noticed to be in AFib. He was complaining of palpitations. We decided to do echocardiography and stress testing to assess for any structural issues and to rule out ischemia so we can use propafenone or flecainide. Echocardiography was normal. He has stress echocardiogram which was normal. He reverted back to sinus rhythm. He returns today and is complaining of palpitations. He said he had 3 episodes of atrial fibrillation the last 3-4 months. These lasted for couple of hours each. He has gained 7 lb. He has fatigue and daytime sleepiness. Denying any other issues at home. 01/26/23: He returns for follow-up. He is denying any palpitations. He is trying to eat healthier and to exercise more. He has been taking Toprol-XL 150 mg daily. His blood pressure control has been good. EKG showing atrial fibrillation. He is saying that when he drinks coffee or drinks alcohol he gets some palpitations but generally does not get any palpitations. Denying any orthopnea PND you any heart failure symptoms currently. He was referred for echocardiography. 05/03/23: He is here for follow-up. He has gained approximately 13 lb since his last visit. He is saying that he was on vacation and it was not eating as healthy as usual. He had echocardiography performed which showed LVEF of 55-60% without any regional wall motion abnormalities. Right ventricle cavity size was normal and RV function was borderline. He has been taking Toprol XL and his heart rate is well controlled. He is denying any significant palpitations. No other issues. We had a detailed discussion about his dietary habits and weight loss. We have discussed and decided to refer him to a dietitian to see if he can get better advice for his diet. 09/11/23: He returns for f/u. He has been stable. Rare palpitations after alcohol consumption. Taking meds regularly. [facility] Medical History Sleep apnea Genital herpes in men Hypertension Acid reflux GERD (gastroesophageal reflux disease) Dyslipidemia Cardiomyopathy PAF (paroxysmal atrial fibrillation) Surgical History History of placement of ear tubes History of removal of cyst Family History Father CVD (cardiovascular disease) Myocardial infarction Mother Stroke Sister No problems noted. 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 Cognitive needs: No Hearing needs: No Vision needs: Yes Review of Systems Const Denies weakness ENT Denies dizziness Card Denies chest pain, Denies chest pain with activity, Denies syncope, Denies rapid heart rate, Denies pedal edema, Denies edema, Denies leg edema, Denies lightheadedness, Denies palpitations, Denies dyspnea, Denies dyspnea on exertion and Denies orthopnea Resp Denies cough, Denies dyspnea and Denies dyspnea on exertion GI Denies hematochezia and Denies change in stool character Musc Denies abnormal gait, Denies muscle cramps, Denies muscle weakness, Denies numbness, Denies radiating pain into limb and Denies tingling Neuro Denies abnormal gait, Denies dizziness, Denies syncope, Denies numbness, Denies tingling and Denies weakness Endo Denies palpitations Physical Exam Vital Signs: Last Vital Signs Pulse 83 09/11/23 11:07 BP 110/82 09/11/23 11:07 BMI result Body Mass Index 39.6 GENERAL APPEARANCE: in no acute distress, pleasant. NECK: no carotid bruit, no jugular venous distention. SKIN: no suspicious lesions, warm and dry. HEART: no murmurs, irregular rate and rhythm. LUNGS: clear to auscultation bilaterally. ABDOMEN: soft, nontender. EXTREMITIES: no edema. PERIPHERAL PULSES: equal. NEUROLOGIC: No gross deficits, AAO X 3 Assessment & Plan Assessment & Plan (1) Obesity (BMI 30-39.9): Code(s): E66.9 - Obesity, unspecified (2) Hypertension: Code(s): I10 - Essential (primary) hypertension (3) Persistent atrial fibrillation: Code(s): I48.19 - Other persistent atrial fibrillation Plan 53-year-old gentleman with persistent atrial fibrillation and hypertension. LVEF is normal. He does not have an heart failure. No chest discomfort. Heart rate well controlled. Does not need anticoagulation currently. We discussed about cardioversion and we have decided to treat him with rate control strategy for now. Blood pressure control is good. f/u in 6 months. Thank you for allowing me to participate in the care of your patient. Please feel free to contact me if you have any questions. Coding Level of Care Code Est Pt Level 4 (80857) Diagnoses Obesity (BMI 30-39.9) E66.9 Hypertension I10 Persistent atrial fibrillation I48.19
== END 2023-09-11 11:37 | disposition home or self-care (01) ==
PROVIDERS: PCP Nurse Practitioner Family; Visit Provider Internal Medicine Cardiovascular Disease
DX: E66.9 Obesity, unspecified (principal); I10 Essential (primary) hypertension; I48.19 Other persistent atrial fibrillation
CPT/HCPCS: 99214

== ENCOUNTER → 2023-09-11 10:42 | Outpatient (BNVA) | payer BC, SELFPAY | PROVIDERS: PCP Nurse Practitioner Family; Visit Provider Internal Medicine Cardiovascular Disease ==

== ENCOUNTER 2024-03-11 10:06 | Outpatient (AMB) | payer BC, SELFPAY ==
[2024-03-11 10:29] VITALS: BP 120/80; PULSE 97; BMI 39.0
--- NOTE | 2024-03-11 10:29 | MHC.OFFVIS ---
Vital Signs 03/11/24 10:29 Height 5 ft 8 in Weight 256 lb 9.889 oz BMI 39.0 BP 120/80 Blood Pressure Location Lt brachial Position Sitting Pulse 97 Intake Visit Reasons: 6 mth f/up Monitoring Analyst Required: No Accompanied by: Self / Same As Patient Allergies No Known Allergies Allergy (Verified 09/11/23 11:09) Medication List - Last Reconciled 03/11/24 by Zeyad Knutson MD atorvastatin 40 mg PO DAILY 90 days cholecalciferol (vitamin D3) 50 mcg PO DAILY 90 days fluocinonide 0.05% 1 appl topical BID lisinopril-hydrochlorothiazide 20-12.5 mg 1 tab PO DAILY 90 days metoprolol succinate ER (Toprol XL) 150 mg (3 x 50 mg) PO DAILY omeprazole 20 mg PO DAILY 90 days tadalafil (Cialis) 10 mg PO DAILY PRN 10 days valacyclovir 500 mg PO DAILY HPI Comments Details: Pleasant 54-year-old gentleman was background of of paroxysmal atrial fibrillation and borderline reduced ejection fraction of 50 55% in the setting of alcohol use. He has cut back on his alcohol use and his ejection fraction has improved back to normal. Previously he reverted back to sinus rhythm. He was trying to be active and was using a bike at home. On previous visit he was noticed to be in AFib. He was complaining of palpitations. We decided to do echocardiography and stress testing to assess for any structural issues and to rule out ischemia so we can use propafenone or flecainide. Echocardiography was normal. He has stress echocardiogram which was normal. He reverted back to sinus rhythm. He returns today and is complaining of palpitations. He said he had 3 episodes of atrial fibrillation the last 3-4 months. These lasted for couple of hours each. He has gained 7 lb. He has fatigue and daytime sleepiness. Denying any other issues at home. 01/26/23: He returns for follow-up. He is denying any palpitations. He is trying to eat healthier and to exercise more. He has been taking Toprol-XL 150 mg daily. His blood pressure control has been good. EKG showing atrial fibrillation. He is saying that when he drinks coffee or drinks alcohol he gets some palpitations but generally does not get any palpitations. Denying any orthopnea PND you any heart failure symptoms currently. He was referred for echocardiography. 7/5/23: He is here for follow-up. He has gained approximately 13 lb since his last visit. He is saying that he was on vacation and it was not eating as healthy as usual. He had echocardiography performed which showed LVEF of 55-60% without any regional wall motion abnormalities. Right ventricle cavity size was normal and RV function was borderline. He has been taking Toprol XL and his heart rate is well controlled. He is denying any significant palpitations. No other issues. We had a detailed discussion about his dietary habits and weight loss. We have discussed and decided to refer him to a dietitian to see if he can get better advice for his diet. 09/11/23: He returns for f/u. He has been stable. Rare palpitations after alcohol consumption. Taking meds regularly. 03/11/2024: He returns for follow-up. He is quite stressed because of multiple deaths in the family and friends. His mother in August and he also lost a friend from cancer. He is saying his dietary habits have not changed significantly and under stress he has been eating more and has gained more weight. Continues to be in atrial fibrillation but asymptomatic. Currently not on anticoagulation. [facility] Medical History Sleep apnea Genital herpes in men Hypertension Acid reflux GERD (gastroesophageal reflux disease) Dyslipidemia Cardiomyopathy PAF (paroxysmal atrial fibrillation) Surgical History History of placement of ear tubes History of removal of cyst Family History Father CVD (cardiovascular disease) Myocardial infarction Mother Stroke Sister No problems noted. 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 Cognitive needs: No Hearing needs: No Vision needs: Yes Review of Systems Const Denies chills, Denies fatigue, Denies fever(s), Denies frequent falls, Denies weakness, Denies weight gain and Denies weight loss ENT Denies dizziness Card Denies chest pain, Denies leg edema, Denies lightheadedness, Denies palpitations, Denies dyspnea and Denies dyspnea on exertion Resp Denies cough, Denies dyspnea and Denies dyspnea on exertion GI Denies hematochezia Musc Denies abnormal gait, Denies muscle weakness, Denies numbness, Denies radiating pain into limb and Denies tingling Neuro Denies abnormal gait, Denies dizziness, Denies frequent falls, Denies numbness, Denies tingling and Denies weakness Endo Denies fatigue and Denies palpitations Physical Exam Vital Signs: Last Vital Signs Pulse 97 03/11/24 10:29 BP 120/80 03/11/24 10:29 BMI result Body Mass Index 39.0 GENERAL APPEARANCE: in no acute distress, pleasant. NECK: no carotid bruit, no jugular venous distention. SKIN: no suspicious lesions, warm and dry. HEART: no murmurs, irregular rate and rhythm. LUNGS: clear to auscultation bilaterally. ABDOMEN: soft, nontender. EXTREMITIES: no edema. PERIPHERAL PULSES: equal. NEUROLOGIC: No gross deficits, AAO X 3 Office Procedures EKG Details: Atrial fibrillation 97 beats per minute, rightward axis nonspecific T-wave changes, QTC 414 milliseconds. [id number], Complete Assessment & Plan Assessment & Plan (1) Obesity (BMI 30-39.9): Code(s): E66.9 - Obesity, unspecified Category: Medical (2) Hypertension: Code(s): I10 - Essential (primary) hypertension Category: Medical (3) Persistent atrial fibrillation: Code(s): I48.19 - Other persistent atrial fibrillation Category: Medical Plan [age] year gentleman with hypertension, obesity and persistent atrial fibrillation. He has been asymptomatic from AFib point of view. ECHO has shown normal EF. He has currently not on anticoagulation. He is rate controlled with Toprol-XL 150 mg daily. I have explained to him that we have taken our rate control strategy but the longer he stays in atrial fibrillation the more difficult it will be to break atrial fibrillation due to atrial remodeling. I explained to him the process of cardioversion etc. once again but he wishes to be treated with rate control strategy. He will again try to exercise and lose weight. Thank you for allowing me to participate in the care of your patient. Please feel free to contact me if you have any questions. Coding Level of Care Code Est Pt Level 4 (92694) Diagnoses Obesity (BMI 30-39.9) E66.9 Hypertension I10 Persistent atrial fibrillation I48.19 CPT Codes EKG - CPT: [id number], Complete ([id number])
== END 2024-03-11 11:04 | disposition home or self-care (01) ==
PROVIDERS: PCP Nurse Practitioner Family; Visit Provider Internal Medicine Cardiovascular Disease
DX: E66.9 Obesity, unspecified (principal); I10 Essential (primary) hypertension; I48.19 Other persistent atrial fibrillation
CPT/HCPCS: 93010; 99214

== ENCOUNTER → 2024-03-11 10:06 | Outpatient (BNVA) | payer BC, SELFPAY | PROVIDERS: PCP Nurse Practitioner Family; Visit Provider Internal Medicine Cardiovascular Disease | DX: I10 Essential (primary) hypertension (principal); I48.19 Other persistent atrial fibrillation; E66.9 Obesity, unspecified; Z68.39 Body mass index [BMI] 39.0-39.9, adult; Z79.899 Other long term (current) drug therapy | CPT/HCPCS: 93005 ==

== ENCOUNTER 2024-07-29 06:52 | Outpatient (REF) | payer BC, SELFPAY ==
[2024-07-29 10:23] LABS: MANUAL DIFF FLAG NO
[2024-07-29 10:34] LABS: Basophils Absolute Auto 0.1 X10*3/uL (0.0-0.2); Basophils Percent Auto 0.6 % (0-2); Eosinophils Absolute Auto 0.5 X10*3/uL (0.0-0.4); Eosinophils Percent Auto 6.5 % (0-4); Hematocrit 43.8 % (42.0-52.0); Hemoglobin 14.7 g/dl (14.0-18.0); Imm Gran Abs Auto 0.03 X10*3/uL (0.00-0.03); Imm Gran Pct Auto 0.4 % (0.0-0.4); Lymphocytes Absolute Auto 1.8 X10*3/uL (1.2-4.9); Lymphocytes Percent Auto 22.7 % (20-40); Mean Corpuscular HGB Conc 33.6 g/dl (31.0-36.0); Mean Corpuscular Hemoglobin 33.2 pg (27.0-33.0); Mean Corpuscular Volume 98.9 fL (80.0-98.0); Mean Platelet Volume 11.2 fL (9.4-12.4); Monocytes Percent Auto 13.5 % (2-11); Neutrophils Absolute Auto 4.3 x10*3/uL (2.0-8.3); Neutrophils Percent Auto 56.3 % (45-73); Platelet Count 301 X10*3/uL (160-400); Red Blood Count 4.43 X10*6/uL (4.60-5.80); Red Cell Distribution Width 12.4 % (11.0-16.0); White Blood Count 7.7 X10*3/uL (4.8-10.8)
[2024-07-29 10:36] LABS: Appearance Urine Clear; Color Urine Yellow; Glucose Urine UA Negative (Negative); Leukocyte Esterase Urine Negative (Negative); Nitrite Urine Negative (Negative); PH 7.5 (5.0-9.0); Urine Blood Negative (Negative); Urine Ketones Negative (Negative); Urine Protein Negative (Neg-Trace)
[2024-07-29 11:07] LABS: Prostate Specific Antigen Scr 0.34 ng/mL (<0.05-4.0)
[2024-07-29 11:13] LABS: Alanine Aminotransferase 46 U/L (0-40); Albumin Level 3.9 g/dL (3.5-5.0); Alkaline Phosphatase 86 U/L (39-117); Anion Gap 12 (12-20); Aspartate Amino Transferase 33 U/L (5-37); Bilirubin Total 0.4 mg/dL (0.0-1.0); Blood Urea Nitrogen 16 mg/dL (9-16); Calcium 9.9 mg/dL (8.4-10.2); Carbon Dioxide 28 mmol/L (22-29); Chloride 104 mmol/L (96-108); Cholesterol 155 mg/dL (<200); Estimated Glomerular Filt Rate > 60; Glucose Fasting 114 mg/dL (60-99); HDL Cholesterol 41 mg/dL (>40); LDL Cholesterol Calculated 88 mg/dL (<100); Potassium 4.5 mmol/L (3.3-5.1); Sodium 139 mmol/L (135-145); TSH reflex Free T4 1.88 uIU/mL (0.32-4.0); Triglycerides 134 mg/dL (<150)
== END 2024-07-29 06:53 | disposition home or self-care (01) ==
LOC: HO.HMGCLDS 06:52
PROVIDERS: PCP Nurse Practitioner Family; Visit Provider Nurse Practitioner Family
DX: I10 Essential (primary) hypertension (principal); Z12.5 Encounter for screening for malignant neoplasm of prostate
CPT/HCPCS: 36415; 80053; 80061; 81003; 84153; 84443; 85025

== ENCOUNTER 2024-07-29 07:30 | Outpatient (AMB) | payer BC, SELFPAY ==
[2024-07-29 07:39] VITALS: BP 110/80; PULSE 82; O2SAT 98; BMI 40.4
--- NOTE | 2024-07-29 07:39 | MHC.PC.OV ---
Vital Signs 07/29/24 07:39 Height 5 ft 8 in Weight 266 lb BMI 40.4 BP 110/80 Blood Pressure Location Rt brachial Position Sitting Pulse 82 Pulse Source Pulse Oximeter Pulse Oximetry (%) 98 Oxygen Delivery Method Room Air Intake Visit Reasons: Annual PE Intake Note: Pt is here today for his PE Allergies No Known Allergies Allergy (Verified 07/29/24 07:58) Medication List - Last Reconciled 07/29/24 by JACOB Earl atorvastatin 40 mg PO DAILY 90 days cholecalciferol (vitamin D3) 50 mcg PO DAILY 90 days fluocinonide 0.05% 1 appl topical BID lisinopril-hydrochlorothiazide 20-12.5 mg 1 tab PO DAILY 90 days metoprolol succinate ER (Toprol XL) 150 mg (3 x 50 mg) PO DAILY omeprazole 20 mg PO DAILY 90 days tadalafil (Cialis) 10 mg PO DAILY PRN 10 days valacyclovir 500 mg PO DAILY Tobacco use date assessed: 07/29/24 Dental Screening Dental Screen Date: 07/29/24 Did you have a dental visit in the last 12 months?: Yes Did you have a dental problem in the last 6 months where you did not have access to dental care?: No Was dental information given to patient?: Patient has dentist HPI Annual PE HPI Details Pt is here for a PE. Labs have already been ordered. Colon screen is up to date. Due for PSA, will order. Denies dribbling with urination, weak stream, and frequent nocturia. Pt follows up with cardiology. Pt reports just starting intermittent fasting, not interested in GLP-1 agonist currently. [facility] Medical History Sleep apnea Genital herpes in men Hypertension Acid reflux GERD (gastroesophageal reflux disease) Dyslipidemia Cardiomyopathy PAF (paroxysmal atrial fibrillation) Surgical History History of placement of ear tubes History of removal of cyst Family History Father CVD (cardiovascular disease) Myocardial infarction Mother Stroke Sister No problems noted. 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 1. Little interest or pleasure in doing things: not at all 2. Feeling down, depressed, or hopeless: not at all 3. Trouble falling or staying asleep, or sleeping too much: not at all 4. Feeling tired or having little energy: not at all 5. Poor appetite or overeating: several days 6. Feeling bad about yourself - or that you are a failure or have let yourself or your family down: not at all 7. Trouble concentrating on things, such as reading the newspaper or watching television: not at all 8. Moving or speaking so slowly that other people could have noticed. Or the opposite - being so fidgety or restless that you have been moving around a lot more than usual: not at all 9. Thoughts that you would be better off or of hurting yourself in some way: not at all Total score: 1 Depression Screening Interpretation: Negative Depression Screening Done: Yes 65719 - PHQ-9 Billing: Yes Source: Developed by Drs. Gordon Gerard, Nani Juarez, Norm Luo and colleagues, with an educational fiorella from [employer]. Thrive Questionnaire Date Thrive assessed: 07/29/24 I am a: Patient What is your living situation today?: I have a steady place to live Within the past 12 months, did the food you bought not last and you didn't have the money to get more?: Never true Within the past 12 months, did you worry whether your food would run out before you got money to buy more?: I choose not to answer this question Do you have trouble paying for medicines?: I choose not to answer this question Do you have trouble getting transportation to medical appointments?: I choose not to answer this question Do you have trouble paying your heating and electricity bill?: I choose not to answer this question Do you have trouble taking care of your child, family member or friend?: I choose not to answer this question Do you have trouble with day-to-day activities such as bathing, preparing meals, shopping, managing finances, etc.?: I choose not to answer this question Are you interested in more education?: I choose not to answer this question Please select the resources that you would like help with: None Currently or been in a relationship where the following occur: I choose not to answer THRIVE Score: 0 AUDIT C Alcohol Use Questionnaire (AUDIT-C) 1. How often do you have a drink containing alcohol?: 2-3 times a week 2. How many drinks containing alcohol do you have on a typical day when you are drinking?: 3 or 4 3. How often do you have six or more drinks on one occasion?: Weekly Total Score: 7 TIARA-7 AMB Questionnaire TIARA-7 Date TIARA - 7 assessed: 07/29/24 Feeling nervous, anxious, or on edge: 0 = Not at all Not being able to stop or control worryin = Not at all Worrying too much about different things: 0 = Not at all Trouble relaxin = Not at all Being so restless that it is hard to sit still: 0 = Not at all Becoming easily annoyed or irritable: 0 = Not at all Feeling afraid as if something awful might happen: 0 = Not at all Total TIARA-7 score (0-4 normal; 5-9 mild; 10-14 moderate; 15-21 severe): 0 Source: Developed by Drs. Gordon Gerard, Nani Juarez, Norm Luo and colleagues, with an educational fiorella from [employer]. Review of Systems Const Denies chills and Denies fever(s) Eyes Denies blurry vision ENT Denies vertigo, Denies dizziness and Denies sore throat Card Denies chest pain at rest, Denies chest pain with activity, Denies diaphoresis, Denies dyspnea and Denies dyspnea on exertion Resp Denies cough, Denies dyspnea, Denies dyspnea on exertion and Denies wheezing GI Denies abdominal pain, Denies melena, Denies hematochezia, Denies constipation, Denies diarrhea and Denies loose stools Denies hematuria Musc Denies numbness and Denies tingling Skin/Breast Denies lesions Neuro Denies vertigo, Denies dizziness, Denies numbness and Denies tingling Psych Denies anxiety, Denies depression, Denies homicidal ideation, Denies suicidal ideation and Denies other (substance abuse) Aller/Immun Denies wheezing Physical exam (Primary Care) Vital Signs: Last Vital Signs Pulse 82 07/29/24 07:39 BP 110/80 07/29/24 07:39 Pulse Ox 98 07/29/24 07:39 Oxygen Delivery Method Room Air 07/29/24 07:39 BMI result Body Mass Index 40.4 Tobacco/Smoking Status: Tobacco use Status Tobacco use date assessed 07/29/24 07/29/24 07:45 Patient Tobacco Use Status Current someday Tobacco 07/29/24 07:45 Tobacco use type Cigarette 07/29/24 07:45 e-Cigarette/Vaping Use Never Used 07/29/24 07:45 PHQ-9: PHQ-9 Score PHQ-9: Total score 1 07/29/24 07:45 Depression Screening Interpretation: Negative Thrive Assessment: Date of Thrive Assessment Date Thrive assessed 07/29/24 07/29/24 07:45 Currently or been in a relationship where the following occur: I choose not to answer Const General: cooperative Nutritional Appearance: obese Orientation/consciousness: patient oriented x3 HENMT Head: Yes normal to inspection, Yes normocephalic and Yes atraumatic Ears: TM's normal bilaterally Eyes General: appearance normal, both eyes and all related structures Alignment and Position: alignment normal and position normal Neck Neck: Yes normal visual inspection, Yes no lymphadenopathy and Yes supple Resp Effort & Inspection: normal respiratory effort Auscultation: clear to auscultation bilaterally Cardio Rate: regular rate Rhythm: abnormal rhythm (afib) irregularly irregular Heart sounds: S1 normal heart sound present, S2 normal heart sound present and no murmurs GI Palpation (GI): Soft to palpation and nontender Auscultation: normal bowel sounds Other: BRYANNA: difficult to perform, prostate was not palpated. Male General Exam: Yes normal external exam Penis: normal penis Scrotum: scrotum normal, testes descended bilaterally and no inguinal hernias Testes: no testicular mass Skin Other: bilat upper buttocks with faint surface excoriation. Rashes: no rashes Neuro General: patient oriented x3, moves all extremities, no focal motor deficits and deep tendon reflexes 2+ bilaterally Romberg Test: Negative Psych Appearance: grossly normal Mental Status: mental status grossly normal Speech and movement: Normal speech and movement present Affect: normal affect Attitude: cooperative Thought process: Normal thought process present Thought content: Normal thought content present Insight: Good insight present (Psych) Judgement: Good judgement present (Psych) Assessment and Plan Assessment & Plan (1) Encounter for routine adult physical exam with abnormal findings: Code(s): Z00.01 - Encounter for general adult medical examination with abnormal findings Plan: encouraged lab draw. follow up with cardiology (2) Morbid obesity: Code(s): E66.01 - Morbid (severe) obesity due to excess calories Plan: mentioned injections (GLP-1 agonist), wants to intermittently fast Plan The patient agreed to the use of a medical clerical assistant for this encounter. Scribed for JACOB Buck by Milka Wagoner medical clerical assistant, on 07/29/2024 at 07:55 EST. Coding Level of Care Code Est Pt Prev Care 40-64y(80745) Diagnoses Encounter for routine adult physical exam with abnormal findings Z00.01 Morbid obesity E66.01
== END 2024-07-29 08:31 | disposition home or self-care (01) ==
PROVIDERS: PCP Nurse Practitioner Family; Visit Provider Nurse Practitioner Family
DX: Z00.00 Encounter for general adult medical examination without abnormal findings (principal); E66.01 Morbid (severe) obesity due to excess calories; Z68.41 Body mass index [BMI] 40.0-44.9, adult

== ENCOUNTER 2024-08-05 10:50 | Outpatient (AMB) | payer BC, SELFPAY ==
[2024-08-05 11:12] VITALS: BP 120/70; PULSE 96; BMI 40.2
--- NOTE | 2024-08-05 11:12 | MHC.OFFVIS ---
Vital Signs 08/05/24 11:12 Height 5 ft 8 in Weight 264 lb 1.82 oz BMI 40.2 BP 120/70 Blood Pressure Location Lt brachial Position Sitting Pulse 96 Pulse Source Pulse Oximeter Intake Visit Reasons: 4m follow up Intake Note: 4 mth f/up- pt is doing fine, he did state that yesterday he had an an episode of fainting yesterday he state that he was coughing and when getting up he fainted for about a minute. 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 Required: No Accompanied by: Self / Same As Patient Allergies No Known Allergies Allergy (Verified 07/29/24 07:58) Medication List - Last Reconciled 08/05/24 by Zeyad Knutson MD atorvastatin 40 mg PO DAILY 90 days cholecalciferol (vitamin D3) 50 mcg PO DAILY 90 days fluocinonide 0.05% 1 appl topical BID lisinopril-hydrochlorothiazide 20-12.5 mg 1 tab PO DAILY 90 days metoprolol succinate ER (Toprol XL) 150 mg (3 x 50 mg) PO DAILY omeprazole 20 mg PO DAILY 90 days tadalafil (Cialis) 10 mg PO DAILY PRN 10 days valacyclovir 500 mg PO DAILY HPI Comments Details: Pleasant 54-year-old gentleman was background of of paroxysmal atrial fibrillation and borderline reduced ejection fraction of 50 55% in the setting of alcohol use. He has cut back on his alcohol use and his ejection fraction has improved back to normal. Previously he reverted back to sinus rhythm. He was trying to be active and was using a bike at home. On previous visit he was noticed to be in AFib. He was complaining of palpitations. We decided to do echocardiography and stress testing to assess for any structural issues and to rule out ischemia so we can use propafenone or flecainide. Echocardiography was normal. He has stress echocardiogram which was normal. He reverted back to sinus rhythm. He returns today and is complaining of palpitations. He said he had 3 episodes of atrial fibrillation the last 3-4 months. These lasted for couple of hours each. He has gained 7 lb. He has fatigue and daytime sleepiness. Denying any other issues at home. 01/26/23: He returns for follow-up. He is denying any palpitations. He is trying to eat healthier and to exercise more. He has been taking Toprol-XL 150 mg daily. His blood pressure control has been good. EKG showing atrial fibrillation. He is saying that when he drinks coffee or drinks alcohol he gets some palpitations but generally does not get any palpitations. Denying any orthopnea PND you any heart failure symptoms currently. He was referred for echocardiography. 05/03/23: He is here for follow-up. He has gained approximately 13 lb since his last visit. He is saying that he was on vacation and it was not eating as healthy as usual. He had echocardiography performed which showed LVEF of 55-60% without any regional wall motion abnormalities. Right ventricle cavity size was normal and RV function was borderline. He has been taking Toprol XL and his heart rate is well controlled. He is denying any significant palpitations. No other issues. We had a detailed discussion about his dietary habits and weight loss. We have discussed and decided to refer him to a dietitian to see if he can get better advice for his diet. 09/11/23: He returns for f/u. He has been stable. Rare palpitations after alcohol consumption. Taking meds regularly. 03/11/2024: He returns for follow-up. He is quite stressed because of multiple deaths in the family and friends. His mother in August and he also lost a friend from cancer. He is saying his dietary habits have not changed significantly and under stress he has been eating more and has gained more weight. Continues to be in atrial fibrillation but asymptomatic. Currently not on anticoagulation. 08/05/24: Here for followup. He said he was watching football and started having a coughing fit and after that he passed out for few seconds. He said his girlfriend found him on the floor. He knew where he was. He said he has been changing his diet and was trying to fast to lose weight. He also is on medications including Toprol-XL and lisinopril hydrochlorothiazide. He is saying he has no chest discomfort shortness of breath. EKG continues to show atrial fibrillation. [facility] Medical History Sleep apnea Genital herpes in men Hypertension Acid reflux GERD (gastroesophageal reflux disease) Dyslipidemia Cardiomyopathy PAF (paroxysmal atrial fibrillation) Surgical History History of placement of ear tubes History of removal of cyst Family History Father CVD (cardiovascular disease) Myocardial infarction Mother Stroke Sister No problems noted. 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 Cognitive needs: No Hearing needs: No Vision needs: Yes Review of Systems Const Denies chills, Denies fatigue, Denies fever(s), Reports frequent falls, Denies weakness, Denies weight gain and Denies weight loss ENT Denies dizziness Card Denies chest pain, Denies leg edema, Denies lightheadedness, Denies palpitations, Denies dyspnea and Denies dyspnea on exertion Resp Denies cough, Denies dyspnea and Denies dyspnea on exertion GI Denies hematochezia Musc Denies abnormal gait, Denies muscle weakness, Denies numbness, Denies radiating pain into limb and Denies tingling Neuro Denies abnormal gait, Denies dizziness, Reports frequent falls, Denies numbness, Denies tingling and Denies weakness Endo Denies fatigue and Denies palpitations Physical Exam Vital Signs: Last Vital Signs Pulse 96 08/05/24 11:12 BP 120/70 08/05/24 11:12 BMI result Body Mass Index 40.2 GENERAL APPEARANCE: in no acute distress, pleasant. NECK: no carotid bruit, no jugular venous distention. SKIN: no suspicious lesions, warm and dry. HEART: no murmurs, irregular rate and rhythm. LUNGS: clear to auscultation bilaterally. ABDOMEN: soft, nontender. EXTREMITIES: no edema. PERIPHERAL PULSES: equal. NEUROLOGIC: No gross deficits, AAO X 3 Office Procedures EKG Details: Atrial fibrillation 95 beats per minute, rightward axis, QTC 407 milliseconds. [id number], Complete Assessment & Plan Assessment & Plan (1) Hypertension: Code(s): I10 - Essential (primary) hypertension Category: Medical (2) Persistent atrial fibrillation: Code(s): I48.19 - Other persistent atrial fibrillation Category: Medical (3) Syncope: Code(s): R55 - Syncope and collapse Category: Medical Plan Pleasant 54 year gentleman with hypertension, obesity and persistent atrial fibrillation. He is asymptomatic from atrial fibrillation currently and we have been managing him with rate control strategy with Toprol-XL. He has hypertension and is currently on metoprolol lisinopril and hydrochlorothiazide. Blood pressure is reasonably controlled. He had a syncopal episode while having a coughing fit yesterday. This seems like situational syncope. He is saying he has not been drinking water and hydrating himself. He also was trying to fast and lose weight. I have advised him keep himself well hydrated and for weight loss take steps which he can do long-term rather than abrupt weight loss which may affect his blood pressure etcetera. Currently no indication for anticoagulation. Chads Vasc is 1. If he develops diabetes or any other risk factors for stroke then he may need to be started on long-term anticoagulation. Thank you for allowing me to participate in the care of your patient. Please feel free to contact me if you have any questions. Coding Level of Care Code Est Pt Level 4 (52042) Diagnoses Hypertension I10 Persistent atrial fibrillation I48.19 Syncope R55 CPT Codes EKG - CPT: 05471-[id number], Complete ([id number])
== END 2024-08-05 11:51 | disposition home or self-care (01) ==
PROVIDERS: PCP Nurse Practitioner Family; Visit Provider Internal Medicine Cardiovascular Disease
DX: I10 Essential (primary) hypertension (principal); I48.19 Other persistent atrial fibrillation; R55 Syncope and collapse
CPT/HCPCS: 93010; 99214

== ENCOUNTER → 2024-08-05 10:50 | Outpatient (BNVA) | payer BC, SELFPAY | PROVIDERS: PCP Nurse Practitioner Family; Visit Provider Internal Medicine Cardiovascular Disease | DX: I10 Essential (primary) hypertension (principal); I48.19 Other persistent atrial fibrillation; R55 Syncope and collapse; Z79.899 Other long term (current) drug therapy | CPT/HCPCS: 93005 ==

== ENCOUNTER 2024-08-07 09:36 | Outpatient (REF) | payer BC, SELFPAY ==
--- NOTE | ~2024-08-07 | US_ITS ---
EXAMINATION: US ABDOMEN COMPLETE CLINICAL INFORMATION: Abnormal levels of other serum enzymes. Elevated liver enzymes. COMPARISON: CT abdomen and pelvis 05/11/2016. Renal ultrasound 08/13/2013 and 04/22/2009. TECHNIQUE: Real-time imaging of the abdominal viscera. Technically difficult study secondary to body habitus. FINDINGS: PANCREAS: The visualized pancreas appears unremarkable but the pancreatic tail is obscured by bowel gas. ABDOMINAL AORTA: The mid and distal aorta are obscured by bowel gas. No proximal aneurysm is seen. INFERIOR VENA CAVA: Visualized portions are normal. LIVER: Normal. The liver is normal in size. The liver contour is normal. Parenchymal echogenicity is normal. No focal hepatic lesion. There is no intrahepatic biliary duct dilatation seen. GALLBLADDER: Normal. The gallbladder is physiologically distended without evidence of stones, sludge, polyps, wall thickening or pericholecystic fluid. COMMON BILE DUCT: Normal in caliber measuring 0.3 cm in diameter. RIGHT KIDNEY: No hydronephrosis or renal calculi. The kidney measures 11.7 cm in maximum dimension. A benign upper pole 1.5 cm Bosniak class I renal cyst is noted which requires no additional imaging or follow up. No solid renal masses are seen. LEFT KIDNEY: Normal. No hydronephrosis. No renal calculi or focal parenchymal lesions. The kidney measures 12.5 cm in maximum dimension. SPLEEN: Normal. The spleen measures 12.3 cm in maximum dimension. FREE FLUID: None. US/US abdomen complete IMPRESSION: No significant abnormality is seen. Electronically signed by: Rodriguez Snyder MD 10/03/2024 11:[address] [facility]
== END 2024-08-07 09:37 | disposition home or self-care (01) ==
LOC: HO.HMGCX 09:36
PROVIDERS: PCP Nurse Practitioner Family; Visit Provider Nurse Practitioner Family
DX: R74.8 Abnormal levels of other serum enzymes (principal)
CPT/HCPCS: 76700

== ENCOUNTER 2024-12-09 10:16 | Outpatient (AMB) | payer BC, SELFPAY ==
[2024-12-09 10:35] VITALS: BP 110/70; PULSE 76; BMI 38.7
--- NOTE | 2024-12-09 10:35 | MHC.OFFVIS ---
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 Accompanied by: Self / Same As Patient Allergies No Known Allergies Allergy (Verified 07/29/24 07:58) Medication List - Last Reconciled 12/09/24 by Zeyad Knutson MD atorvastatin 40 mg PO DAILY 90 days cholecalciferol (vitamin D3) 50 mcg PO DAILY 90 days fluocinonide 0.05% 1 appl topical BID lisinopril-hydrochlorothiazide 20-12.5 mg 1 tab PO DAILY 90 days metoprolol succinate ER (Toprol XL) 150 mg (3 x 50 mg) PO DAILY omeprazole 20 mg PO DAILY 90 days tadalafil (Cialis) 10 mg PO DAILY PRN 10 days valacyclovir 500 mg PO DAILY HPI Comments Details: Pleasant 54-year-old gentleman was background of of paroxysmal atrial fibrillation and borderline reduced ejection fraction of 50 55% in the setting of alcohol use. He has cut back on his alcohol use and his ejection fraction has improved back to normal. Previously he reverted back to sinus rhythm. He was trying to be active and was using a bike at home. On previous visit he was noticed to be in AFib. He was complaining of palpitations. We decided to do echocardiography and stress testing to assess for any structural issues and to rule out ischemia so we can use propafenone or flecainide. Echocardiography was normal. He has stress echocardiogram which was normal. He reverted back to sinus rhythm. He returns today and is complaining of palpitations. He said he had 3 episodes of atrial fibrillation the last 3-4 months. These lasted for couple of hours each. He has gained 7 lb. He has fatigue and daytime sleepiness. Denying any other issues at home. 01/26/23: He returns for follow-up. He is denying any palpitations. He is trying to eat healthier and to exercise more. He has been taking Toprol-XL 150 mg daily. His blood pressure control has been good. EKG showing atrial fibrillation. He is saying that when he drinks coffee or drinks alcohol he gets some palpitations but generally does not get any palpitations. Denying any orthopnea PND you any heart failure symptoms currently. He was referred for echocardiography. 05/03/23: He is here for follow-up. He has gained approximately 13 lb since his last visit. He is saying that he was on vacation and it was not eating as healthy as usual. He had echocardiography performed which showed LVEF of 55-60% without any regional wall motion abnormalities. Right ventricle cavity size was normal and RV function was borderline. He has been taking Toprol XL and his heart rate is well controlled. He is denying any significant palpitations. No other issues. We had a detailed discussion about his dietary habits and weight loss. We have discussed and decided to refer him to a dietitian to see if he can get better advice for his diet. 09/11/23: He returns for f/u. He has been stable. Rare palpitations after alcohol consumption. Taking meds regularly. 03/11/2024: He returns for follow-up. He is quite stressed because of multiple deaths in the family and friends. His mother in August and he also lost a friend from cancer. He is saying his dietary habits have not changed significantly and under stress he has been eating more and has gained more weight. Continues to be in atrial fibrillation but asymptomatic. Currently not on anticoagulation. 08/05/24: Here for followup. He said he was watching football and started having a coughing fit and after that he passed out for few seconds. He said his girlfriend found him on the floor. He knew where he was. He said he has been changing his diet and was trying to fast to lose weight. He also is on medications including Toprol-XL and lisinopril hydrochlorothiazide. He is saying he has no chest discomfort shortness of breath. EKG continues to show atrial fibrillation. 12/09/24: King is here for follow-up. He is denying any significant palpitations but saying that when he is anxious or in an argument with someone he may get some palpitations. No chest pain or shortness of breath. He has lost 10 lb compared to his last visit. He is saying he has been trying to eat healthier. Continues to be in atrial fibrillation. Not on anticoagulation due to CHADS-VASc 1. COUNTS INCLUDE 234 BEDS AT THE [facility] Medical History Sleep apnea Genital herpes in men Hypertension Acid reflux GERD (gastroesophageal reflux disease) Dyslipidemia Cardiomyopathy PAF (paroxysmal atrial fibrillation) Surgical History History of placement of ear tubes History of removal of cyst Family History Father CVD (cardiovascular disease) Myocardial infarction Mother Stroke Sister No problems noted. 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 Cognitive needs: No Hearing needs: No Vision needs: Yes Review of Systems Const Denies chills, Denies fatigue, Denies fever(s), Denies frequent falls, Denies weakness, Denies weight gain and Denies weight loss ENT Denies dizziness Card Denies chest pain, Denies leg edema, Denies lightheadedness, Denies palpitations, Denies dyspnea and Denies dyspnea on exertion Resp Denies cough, Denies dyspnea and Denies dyspnea on exertion GI Denies hematochezia Musc Denies abnormal gait, Denies muscle weakness, Denies numbness, Denies radiating pain into limb and Denies tingling Neuro Denies abnormal gait, Denies dizziness, Denies frequent falls, Denies numbness, Denies tingling and Denies weakness Endo Denies fatigue and Denies palpitations Physical Exam Vital Signs: Last Vital Signs Pulse 76 12/09/24 10:35 BP 110/70 12/09/24 10:35 BMI result Body Mass Index 38.7 GENERAL APPEARANCE: in no acute distress, pleasant. NECK: no carotid bruit, no jugular venous distention. SKIN: no suspicious lesions, warm and dry. HEART: no murmurs, irregular rate and rhythm. LUNGS: clear to auscultation bilaterally. ABDOMEN: soft, nontender. EXTREMITIES: no edema. PERIPHERAL PULSES: equal. NEUROLOGIC: No gross deficits, AAO X 3 Assessment & Plan Assessment & Plan (1) Persistent atrial fibrillation: Code(s): I48.19 - Other persistent atrial fibrillation Category: Medical (2) HTN (hypertension): Code(s): I10 - Essential (primary) hypertension Category: Medical Plan Pleasant 54 year gentleman who is here for follow-up. He has persistent atrial fibrillation. He is mostly asymptomatic at this point. LV function is preserved. We have been treating him with rate control strategy. Not on anticoagulation for CHADS-VASc 1. Explained to him that if he develops any vascular disease or diabetes then we may have to consider anticoagulation. I have discussed with him once again that rate control strategy is a reasonable option but long-term effects of atrial fibrillation are there including enlargement of the left atrium and eventually atrial functional mitral valve regurgitation. I have explained to him that we do not know who will develop these issues in the future and that is why there is some aggression about keeping patient is in sinus rhythm. We discussed about ablation and he is interested in learning more about this. I am referring him to EP for further discussion and if he agrees he will proceed with ablation. Thank you for allowing me to participate in the care of your patient. Please feel free to contact me if you have any questions. Coding Level of Care Code Est Pt Level 4 (25784) Diagnoses Persistent atrial fibrillation I48.19 HTN (hypertension) I10
== END 2024-12-09 11:13 | disposition home or self-care (01) ==
PROVIDERS: PCP Nurse Practitioner Family; Visit Provider Internal Medicine Cardiovascular Disease
DX: I48.19 Other persistent atrial fibrillation (principal); I10 Essential (primary) hypertension
CPT/HCPCS: 99214

== ENCOUNTER → 2024-12-09 10:16 | Outpatient (BNVA) | payer BC, SELFPAY | PROVIDERS: PCP Nurse Practitioner Family; Visit Provider Internal Medicine Cardiovascular Disease ==

== ENCOUNTER 2025-06-25 14:35 | Outpatient (AMB) | payer BC, SELFPAY ==
--- NOTE | 2025-06-25 15:21 | MHC.OFFVIS ---
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 Accompanied by: Self / Same As Patient Allergies No Known Allergies Allergy (Verified 07/29/24 07:58) Medication List - Last Reconciled 06/25/25 by Zeyad Knutson MD atorvastatin 40 mg PO DAILY 90 days cholecalciferol (vitamin D3) 50 mcg PO DAILY 90 days fluocinonide 0.05% 1 appl topical BID lisinopril-hydrochlorothiazide 20-12.5 mg 1 tab PO DAILY 90 days metoprolol succinate ER (Toprol XL) 150 mg (3 x 50 mg) PO DAILY omeprazole 20 mg PO DAILY 90 days tadalafil (Cialis) 10 mg PO DAILY PRN 10 days valacyclovir 500 mg PO DAILY HPI Comments Details: Pleasant 55-year-old gentleman was background of of paroxysmal atrial fibrillation and borderline reduced ejection fraction of 50 55% in the setting of alcohol use. He has cut back on his alcohol use and his ejection fraction has improved back to normal. Previously he reverted back to sinus rhythm. He was trying to be active and was using a bike at home. On previous visit he was noticed to be in AFib. He was complaining of palpitations. We decided to do echocardiography and stress testing to assess for any structural issues and to rule out ischemia so we can use propafenone or flecainide. Echocardiography was normal. He has stress echocardiogram which was normal. He reverted back to sinus rhythm. He returns today and is complaining of palpitations. He said he had 3 episodes of atrial fibrillation the last 3-4 months. These lasted for couple of hours each. He has gained 7 lb. He has fatigue and daytime sleepiness. Denying any other issues at home. 01/26/23: He returns for follow-up. He is denying any palpitations. He is trying to eat healthier and to exercise more. He has been taking Toprol-XL 150 mg daily. His blood pressure control has been good. EKG showing atrial fibrillation. He is saying that when he drinks coffee or drinks alcohol he gets some palpitations but generally does not get any palpitations. Denying any orthopnea PND you any heart failure symptoms currently. He was referred for echocardiography. 05/03/23: He is here for follow-up. He has gained approximately 13 lb since his last visit. He is saying that he was on vacation and it was not eating as healthy as usual. He had echocardiography performed which showed LVEF of 55-60% without any regional wall motion abnormalities. Right ventricle cavity size was normal and RV function was borderline. He has been taking Toprol XL and his heart rate is well controlled. He is denying any significant palpitations. No other issues. We had a detailed discussion about his dietary habits and weight loss. We have discussed and decided to refer him to a dietitian to see if he can get better advice for his diet. 09/11/23: He returns for f/u. He has been stable. Rare palpitations after alcohol consumption. Taking meds regularly. 03/11/2024: He returns for follow-up. He is quite stressed because of multiple deaths in the family and friends. His mother in August and he also lost a friend from cancer. He is saying his dietary habits have not changed significantly and under stress he has been eating more and has gained more weight. Continues to be in atrial fibrillation but asymptomatic. Currently not on anticoagulation. 08/05/24: Here for followup. He said he was watching football and started having a coughing fit and after that he passed out for few seconds. He said his girlfriend found him on the floor. He knew where he was. He said he has been changing his diet and was trying to fast to lose weight. He also is on medications including Toprol-XL and lisinopril hydrochlorothiazide. He is saying he has no chest discomfort shortness of breath. EKG continues to show atrial fibrillation. 12/09/24: King is here for follow-up. He is denying any significant palpitations but saying that when he is anxious or in an argument with someone he may get some palpitations. No chest pain or shortness of breath. He has lost 10 lb compared to his last visit. He is saying he has been trying to eat healthier. Continues to be in atrial fibrillation. Not on anticoagulation due to CHADS-VASc 1. 06/25/2025: He is here for follow-up. He said in February 2025 he felt some palpitations after drinking more alcohol than usual at his daughter's graduation. He has not had any palpitations since then. He has persistent atrial fibrillation at this point. Denying any chest pain or shortness of breath. His weight has been up and down but mostly has gained weight and is currently at 268 lb. [facility] Medical History Sleep apnea Genital herpes in men Hypertension Acid reflux GERD (gastroesophageal reflux disease) Dyslipidemia Cardiomyopathy PAF (paroxysmal atrial fibrillation) Surgical History History of placement of ear tubes History of removal of cyst Family History Father CVD (cardiovascular disease) Myocardial infarction Mother Stroke Sister No problems noted. 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 Cognitive needs: No Hearing needs: No Vision needs: Yes Review of Systems Const Denies chills, Denies fatigue, Denies fever(s), Denies frequent falls, Denies weakness, Denies weight gain and Denies weight loss ENT Denies dizziness Card Denies chest pain, Denies leg edema, Denies lightheadedness, Denies palpitations, Denies dyspnea and Denies dyspnea on exertion Resp Denies cough, Denies dyspnea and Denies dyspnea on exertion GI Denies hematochezia Musc Denies abnormal gait, Denies muscle weakness, Denies numbness, Denies radiating pain into limb and Denies tingling Neuro Denies abnormal gait, Denies dizziness, Denies frequent falls, Denies numbness, Denies tingling and Denies weakness Endo Denies fatigue and Denies palpitations Physical Exam Vital Signs: Last Vital Signs Pulse 96 06/25/25 15:22 BP 110/72 06/25/25 15:22 BMI result Body Mass Index 40.9 GENERAL APPEARANCE: in no acute distress, pleasant. NECK: no carotid bruit, no jugular venous distention. SKIN: no suspicious lesions, warm and dry. HEART: no murmurs, irregular rate and rhythm. LUNGS: clear to auscultation bilaterally. ABDOMEN: soft, nontender. EXTREMITIES: no edema. PERIPHERAL PULSES: equal. NEUROLOGIC: No gross deficits, AAO X 3 Assessment & Plan Assessment & Plan (1) Persistent atrial fibrillation: Code(s): I48.19 - Other persistent atrial fibrillation Category: Medical (2) HTN (hypertension): Code(s): I10 - Essential (primary) hypertension Category: Medical Plan Pleasant 55 year gentleman who is here for follow-up. He has persistent atrial fibrillation. He is mostly asymptomatic at this point. LV function is preserved. We have been treating him with rate control strategy. Not on anticoagulation for CHADS-VASc 1. He has been asymptomatic mostly from atrial fibrillation point of view. One episode that he has reported currently a palpitations after drinking significant alcohol on his daughter's graduation in February 2025. We once again discussed about management options. He currently has been no significant symptoms from atrial fibrillation. I have discussed with him that cardioversion slight ablation is possible but he will require anticoagulation short term for that. Also he will need to stopped drinking. He does not drink regularly but when he drinks he does binge drinking. He is saying that it is quite difficult for him to commit that he was stopped drinking. So far we have decided to rate control him and watch him for any symptoms. He will follow up with us in few months. Thank you for allowing me to participate in the care of your patient. Please feel free to contact me if you have any questions. Coding Level of Care Code Est Pt Level 4 (76421) Diagnoses Persistent atrial fibrillation I48.19 HTN (hypertension) I10
[2025-06-25 15:22] VITALS: BP 110/72; PULSE 96; BMI 40.9
== END 2025-06-25 15:50 | disposition home or self-care (01) ==
PROVIDERS: PCP Nurse Practitioner Family; Visit Provider Internal Medicine Cardiovascular Disease
DX: I48.19 Other persistent atrial fibrillation (principal); I10 Essential (primary) hypertension
CPT/HCPCS: 99214

== ENCOUNTER 2025-07-21 07:04 | Outpatient (AMB) | payer BC, SELFPAY ==
[2025-07-21 07:06] VITALS: BP 110/74; PULSE 96; RESP 16; TEMP 37.2; O2SAT 99; BMI 41.7
--- NOTE | 2025-07-21 07:06 | MHC.OFFWIV ---
Intake Vital Signs 07/21/25 07:06 Height 5 ft 8 in Weight 274 lb BMI 41.7 BP 110/74 Blood Pressure Location Rt brachial Position Sitting Respiration 16 Pulse 96 Temp 99.0 F Temp Source Oral Pulse Oximetry (%) 99 Oxygen Delivery Method Room Air Intake Visit Reasons: EP Rash? Intake Note: Pt is here today c/o rash all over body almost almost a month Patient Tobacco Use Status: Current someday Tobacco user Allergies No Known Allergies Allergy (Verified 07/21/25 07:08) HPI HPI Comments History of Present Illness Details 55 y/o Male patient who presents to the walk in clinic this morning c/o Rash covering his entire body for 1 month. Past medical history significant for Obesity, HTN, PAF, Elevated Liver Enzymes, HDL and GERD. He was seen and evaluated at [facility] recently and was diagnosed with Petechiae Rash. All Labs at [facility] were Negative. Rash was originally on his LE and now spreading to his Entire Body. Denies any Bleeding History. Denies h/o Taking Blood Thinners or Anti-platelet. Reports some mild itching on his LE. Denies Chills, Nausea or vomiting. [facility] Medical History (Updated 07/21/25 @ 07:40 by Deborah Phelps NP) Petechial rash Sleep apnea Genital herpes in men Hypertension Acid reflux GERD (gastroesophageal reflux disease) Dyslipidemia Cardiomyopathy PAF (paroxysmal atrial fibrillation) Surgical History History of placement of ear tubes History of removal of cyst Family History Father CVD (cardiovascular disease) Myocardial infarction Mother Stroke Sister No problems noted. 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 Cognitive needs: No Hearing needs: No Vision needs: Yes Review of Systems Const All systems reviewed & are unremarkable except as noted in HPI and below Physical Exam Vital Signs: Last Vital Signs Temp 99.0 F 07/21/25 07:06 Pulse 96 07/21/25 07:06 Resp 16 07/21/25 07:06 BP 110/74 07/21/25 07:06 Pulse Ox 99 07/21/25 07:06 Oxygen Delivery Method Room Air 07/21/25 07:06 BMI result Body Mass Index 41.7 Const General: comfortable and no acute distress Nutritional Appearance: obese Orientation/consciousness: patient oriented x3 Resp Effort & Inspection: normal respiratory effort Auscultation: clear to auscultation bilaterally Cardio Heart sounds: S1 normal heart sound present and S2 normal heart sound present Skin Other: Pinpoint size erythematous Spots covering his Entire Body. Rashes: rashes noted (UE, LE, Torso and Back.) Neuro General: patient oriented x3, gait normal and moves all extremities Psych Speech and movement: Normal speech and movement present Assessment & Plan Assessment & Plan (1) Petechial rash: Code(s): R23.3 - Spontaneous ecchymoses Plan: Patient was able to secure an appointment with [facility] Today at 10 am. All Labs are negative from [facility]. Printed the Labs and gave to Patient copies. Placed referral and will Fax notes to Derm. Coding Level of Care Code Est Pt Level 4 (46779) Diagnoses Petechial rash R23.3 Time Spent (min) 20
== END 2025-07-21 07:48 | disposition home or self-care (01) ==
PROVIDERS: PCP Nurse Practitioner Family; Visit Provider Nurse Practitioner Family
DX: R23.3 Spontaneous ecchymoses (principal)

== ENCOUNTER 2025-08-11 08:01 | Outpatient (REF) | payer BC, SELFPAY ==
[2025-08-11 10:21] LABS: MANUAL DIFF FLAG NO
[2025-08-11 10:26] LABS: Hematocrit 43.2 % (42.0-52.0); Hemoglobin 14.3 g/dl (14.0-18.0); Imm Gran Abs Auto 0.18 X10*3/uL (0.00-0.03); Imm Gran Pct Auto 1.4 % (0.0-0.4); Lymphocytes Absolute Auto 3.0 X10*3/uL (1.2-4.9); Mean Corpuscular HGB Conc 33.1 g/dl (31.0-36.0); Mean Corpuscular Hemoglobin 32.4 pg (27.0-33.0); Mean Corpuscular Volume 98.0 fL (80.0-98.0); NRBC Abs Auto 0.000 X10*3/uL (0.0-0.012); NRBC Pct Auto 0.0 /100WBC (0.0-0.2); Platelet Count 279 X10*3/uL (160-400); Red Blood Count 4.41 X10*6/uL (4.60-5.80); White Blood Count 13.2 X10*3/uL (4.8-10.8)
[2025-08-11 10:28] LABS: Appearance Urine Clear; Glucose Urine UA Negative (Negative); PH 7.0 (5.0-9.0); Specific Gravity - Urine 1.020 (1.005-1.025); UMIC TRIGGER UACC YES
[2025-08-11 10:43] LABS: Alanine Aminotransferase 25 U/L (0-40); Albumin Level 3.8 g/dL (3.5-5.0); Alkaline Phosphatase 58 U/L (39-117); Anion Gap 12 (12-20); Aspartate Amino Transferase 16 U/L (5-37); Blood Urea Nitrogen 27 mg/dL (9-16); Calcium 9.1 mg/dL (8.4-10.2); Carbon Dioxide 27 mmol/L (22-29); Chloride 103 mmol/L (96-108); Cholesterol 271 mg/dL (<200); Estimated Glomerular Filt Rate > 60; HDL Cholesterol 65 mg/dL (>40); Potassium 4.1 mmol/L (3.3-5.1); Sodium 138 mmol/L (135-145); Total Protein 7.0 g/dL (6.5-8.0); Triglycerides 192 mg/dL (<150)
[2025-08-11 11:33] LABS: Free T4 (Free Thyroxine) 1.09 ng/dL (0.71-1.85)
[2025-08-12 21:44] LABS: Antibody to SS-A Antigen <1.0 NEG AI (<1.0 NEG); Antibody to SS-B Antigen <1.0 NEG AI (<1.0 NEG)
[2025-08-14 10:07] LABS: Anti Nuclear Antibody Screen NEGATIVE (NEGATIVE)
== END 2025-08-11 08:02 | disposition home or self-care (01) ==
LOC: HO.HMGCLDS 08:01
PROVIDERS: PCP Nurse Practitioner Family; Visit Provider Nurse Practitioner Family
DX: Z00.01 Encounter for general adult medical examination with abnormal findings (principal); Z12.5 Encounter for screening for malignant neoplasm of prostate; R23.3 Spontaneous ecchymoses; G47.30 Sleep apnea, unspecified; R40.20 Unspecified coma; I48.19 Other persistent atrial fibrillation
CPT/HCPCS: 36415; 80053; 80061; 81001; 84153; 84439; 84443; 85025; 86038; 86039; 86235; 93005; 96127

== ENCOUNTER 2025-08-11 08:01 | Outpatient (AMB) | payer BC, SELFPAY ==
--- OUTSIDE RECORDS SUMMARY | 2025-08-11 08:04 | XMS_ITS | Clinical Summary ---
Author Organization [facility] Address 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 5 Active fluocinonide 0.05 % ointment Apply topically 2 (two) times a day. APPLY TO AFFECTED AREA 5 Active lisinopril-hyd roCHLOROthiazi de (PRINZIDE,ZEST ORETIC) 20-12.5 mg per tablet Take 1 tablet by mouth every morning. 5 Active metoprolol succinate (TOPROL-XL) 50 MG 24 hr tablet Take 50 mg by mouth daily. Pt reports taking 3 tabletd daily. 5 Active omeprazole (PRILOSEC) 20 MG capsule Take 1 capsule by mouth every morning. 5 Active tadalafiL (CIALIS) 10 MG tablet PLEASE SEE ATTACHED FOR DETAILED DIRECTIONS 5 Active valACYclovir (VALTREX) 500 MG tablet Take 1 tablet by mouth every morning. 5 Active predniSONE (DELTASONE) 20 MG tablet Take 3 tablets (60 mg total) by mouth daily with breakfast. 90 tablet 5 Active sulfamethoxazo le-trimethopri m (BACTRIM,SEPTR A) 400-80 mg per tablet Take 1 tablet (80 mg of trimethoprim total) by mouth daily. 30 tablet 5 025 Active predniSONE (DELTASONE) 10 MG tablet TAKE 6 PILLS BY MOUTH IN THE MORNING WITH FOOD X 3 DAYS, DECREASE BY ONE PILL EVERY 3 DAYS Discontin ued(Dupli helen order) Active Problems Problem Noted Date Diagnosed Date Vasculitis 07/30/2025 Encounters Date Type Department Care Team Description 08/06/2025 Orders Only [facility] [address] [place] [address] Lambert Walsh MD Interstitial lung disease (Primary Dx) 07/31/2025 11:55 AM EDT - 07/31/2025 11:59 PM EDT Hospital Encounter [facility], [facility] - [address] [address] Lambert Walsh MD Discharge Disposition: Home or Self Care 07/31/2025 Orders Only [facility] [address] [place] [address] Lambert Walsh MD Dysphagia, unspecified type (Primary Dx) 07/31/2025 Telephone [facility] [address] [place] [address] Lambert Walsh MD Dellaripa/pt advice 07/30/2025 11:17 AM EDT - 07/30/2025 7:40 PM EDT Emergency [facility] Emergency Department [address] [place] [address] Nathan Chavarria MD Messac, Luke M, MD, PhD Discharge Disposition: Home or Self Care 07/30/2025 9:00 AM EDT Office Visit [facility] Rheumatology at [address] [place] [address] Tamara Schmidt MD Vasculitis (Primary Dx) 07/30/2025 Orders Only [facility] [address] [place] [address] Lambert Walsh MD Aspiration into airway, initial encounter (Primary Dx) 07/30/2025 Procedure [facility] [address] [address] 07/30/2025 Documentation [facility] Rheumatology at [place] [address] [place] [address] Tamara Schmidt MD 07/29/2025 Telephone [facility] [place] [address] [place] [address] Lambert Walsh MD [email or web address] pt from Last 3 Months Social History Tobacco Use Types Packs/Day Years Used Date Smoking Tobacco: Some Days Cigarettes Smokeless Tobacco: Never Tobacco Cessation:Ready to Q uit: Not Asked; Counseling Given: Not Answered Education Answer Date Recorded Are you interested in more education? Not on sveta e 07/29/2025 Are you concerned about learning? Not on file 07/29/2025 No 07/29/2025 No 07/29/2025 Digital Access Answer Date Recorded No 07/29/2025 No 07/29/2025 Reliable internet access at home? Not on file 07/29/2025 Device with a working camera? Not on file Intimate Partner Violence Answer Date R ecorded Are you denied basic needs s uch as food, clothing, or medical care? No 07/30/2025 In the past 12 months have y ou been in a relationship with a person who hurts, threatens, or tries to control you? No 07/30/2025 Are you denied basic needs s uch as food, clothing, or medical care? No 07/30/2025 In the past 12 months have y ou been in a relationship with a person who hurts, threatens, or tries to control you? No 07/30/2025 Sex and Gender Information Value Date Recorded Sex Assigned at Not on file Legal Sex Male 9:37 AM EDT Gender Identity Not on file Sexual Orientation Not on file Last Filed Vital Signs Vital Sign Reading Time Taken Comments Blood Pressure 124/80 07/30/2025 7:31 PM EDT Pulse 83 07/30/2025 7:31 PM EDT Temperature 36.7 C (98 F) 07/30/2025 7:31 PM EDT Respiratory Rate 16 07/30/2025 7:31 PM EDT Oxygen Saturation 99% 07/30/2025 7:31 PM EDT Inhaled Oxygen Concentration - - Weight 122.5 kg (270 lb) 07/30/2025 10:48 AM EDT Height 175.3 cm (5' 9 ) 07/30/2025 10:48 AM EDT Body Mass Index 39.87 07/30/2025 10:48 AM EDT Plan of Treatment Upcoming Encounters Date Type Department Care Team (Late st Contact Info) Description 08/06/2025 Procedure Pass [facility] CT Imaging, [place] [address] [place] [address] 08/20/2025 11:00 AM EDT Appointment [facility], X-Ray - [address] [address] Lambert Walsh MD [address] [place] [phone] [email or web address] 09/16/2025 10:00 AM EST Appointment [facility] CT Imaging, [place] [address] [place] [address] Lambert Walsh MD [address] [place] [phone] [email or web address] 09/16/2025 11:00 AM EST Office Visit [facility] [address] [place] [address] Tamara Schmidt MD [address] [address] [email or web address] 09/16/2025 11:00 AM EST Office Visit [facility] [address] [place] [address] Lambert Walsh MD [address] [place] [phone] [email or web address] Maintenance Due Date Last Done Comments Adult Td,Tdap Booster 1969 LIPID PANEL 1969 DEPRESSION SCREENING 1981 SMOKING Hx and SMOKELESS TOB ACCO SCREENING 1982 PNEUMOCOCCAL VACCINES (50+ y ears) (1 of 2 - PCV) 02/19/1988 COLOGUARD 2014 COLONOSCOPY 2014 COLORECTAL CANCER SCREENING 2014 FIT TEST 2014 FOBT 2014 SIGMOIDOSCOPY 2014 VIRTUAL COLONOSCOPY 2014 ZOSTER VACCINES (1 of 2) 2019 INFLUENZA VACCINE (#1) 2025 COVID-19 VACCINE (1 - 2024-2 6 season) 2025 CREATININE LEVEL 07/30/2026 07/30/2025 POTASSIUM LEVEL 07/30/2026 07/30/2025 SCREENING FOR DIABETES 07/30/2028 07/30/2025 RSV VACCINE (1 - 1-dose 75+ series) 02/19/2044 HEPATITIS C SCREENING Completed 07/30/2025 HIV ONE-TIME SCREENING (18-6 5 YEARS) Completed 07/30/2025 HEPATITIS A VACCINES Aged Out No long er eligible based on patient's age to complete this topic HIB VACCINES Aged Out No longer eligi ble based on patient's age to complete this topic MENINGOCOCCAL VACCINES (ACWY) Aged Out No longer eligible based on patient's age to complete this topic MENINGOCOCCAL VACCINES (B) Aged Out N o longer eligible based on patient's age to complete this topic Medical Devices Not on file Procedures Procedure Name Priority Date/Time Associated Diagnosis Comments OUTSIDE PATHOLOGY 08/05/2025 OUTSIDE LAB 08/05/2025 OUTSIDE LAB 08/05/2025 OUTSIDE LAB 08/05/2025 OUTSIDE LAB 08/05/2025 OUTSIDE LAB 08/05/2025 OUTSIDE IMAGING 08/05/2025 OUTSIDE PROCEDURE 08/05/2025 OUTSIDE PROCEDURE 08/05/2025 FL BARIUM SWALLOW ESOPHAGRAM DOUBLE CONTRAST Routine 07/31/2025 12:36 PM EDT Aspiration into airway, initial encounter T SPOT TB TEST STAT 07/30/2025 6:[address] CHEST WITH CONTRAST Routine 5:15 PM EDT LAB ADD ON STAT 07/30/2025 4:34 PM EDT SPEP PANEL WITH IMMUNOFIXATION STAT 07/30/2025 4:28 PM EDT COMPLEMENT C4 STAT 07/30/2025 4:28 PM EDT COMPLEMENT C3 STAT 07/30/2025 4:28 PM EDT RHEUMATOID FACTOR STAT 07/30/2025 4:2 8 PM EDT US TEMPORAL ARTERY DUPLEX COMPLETE (BILATERAL) Routine 07/30/2025 3:15 PM EDT Vasculitis URINE SEDIMENT STAT 07/30/2025 12:40 PM EDT TOXICOLOGY SCREEN, URINE STAT 07/30/2025 12:40 PM EDT URINALYSIS W/REFLEX URINE CULTURE STAT 07/30/2025 12:40 PM EDT HEMOGLOBIN A1C Routine 07/30/2025 11:50 AM EDT PT-INR STAT 07/30/2025 11:50 AM EDT CRYOGLOBULINS STAT 07/30/2025 11:50 AM EDT C-REACTIVE PROTEIN, HIGH SENSITIVITY STAT 07/30/2025 11:50 AM EDT SEDIMENTATION RATE (ESR) STAT 07/30/2025 11:50 AM EDT ANTI-NEUTROPHIL CYTOPLASMIC ANTIBODY (ANCA) STAT 07/30/2025 11:50 AM EDT ANTINUCLEAR ANTIBODY (ADIS) STAT 07/30/2025 11:50 AM EDT MAGNESIUM STAT 07/30/2025 11:50 AM EDT LFTS (HEPATIC PANEL) STAT 07/30/2025 11:50 AM EDT BASIC METABOLIC PANEL STAT 07/30/2025 11:50 AM EDT CBC AND DIFFERENTIAL STAT 07/30/2025 11:50 AM EDT HIV-1/2 ANTIGEN/ANTIBODY STAT 07/30/2025 11:50 AM EDT HEPATITIS ACUTE PANEL STAT 07/30/2025 11:50 AM EDT SERUM PROTEIN ELECTROPHORESIS Routine 07/30/2025 12:00 AM EDT from Last 3 Months Results * Outside Imaging Report Only (08/05/2025) us Scanning Interface Provider IMG XR CHEST Ann Marie l Result * Outside Procedure (08/05/2025) us Scanning Interface Provider PROCEDURE/MINOR SURG ICAL PERFORMABLES Final Result * Outside Procedure (08/05/2025) us Scanning Interface Provider PROCEDURE/MINOR SURG ICAL PERFORMABLES Final Result * Outside Lab (08/05/2025) Only the most recent of5 resultswithin the time period is included. us Scanning Interface Provider LAB BLOOD ORDERABLES Final Result * Outside Pathology (08/05/2025) us Scanning Interface Provider PATHOLOGY ORDERABLES Final Result * FL BARIUM SWALLOW ESOPHAGRAM DOUBLE CONTRAST (07/31/2025 12:36 PM EDT) Anatomical Region Laterality Modality Chest Radio Fluoroscop y 07/31/2025 12:4 7 PM EDT Impressions 07/31/2025 12:52 PM EDT Small sliding hiatal hernia. Minimal dysmotility without gross mucosal pathology. FLUOROSCOPY TIME: 1 minute NUMBER OF IMAGES: 183 The examination was performed by Fredrick RANDOLPH. Dr. Mindy Rich was immediately available for portions of the procedure as needed. ATTESTATION: Mindy Harris as teaching physician, have reviewed the images for this case and if necessary edited the report originally created by Fredrick Guadalupe. Narrative 07/31/2025 12:52 PM EDT FL BARIUM SWALLOW ESOPHAGRAM DOUBLE CONTRAST HISTORY: GERD. COMPARISON: CT chest 07/30/2025. TECHNIQUE: Double contrast barium swallow examination was performed with Sodium Carbonate and Barium. FINDINGS: SWALLOW: No ba aspiration. ESOPHAGUS: Motility: Several low amplitude tertiary contractions and one episode of reversed peristalsis in the distal esophagus are visualized. Mucosa: No gross mucosal pathology demonstrated fluoroscopically. Distensibility: Normal. GASTROESOPHAGEAL JUNCTION: Small sliding hiatal hernia. GASTROESOPHAGEAL REFLUX: None observed. TABLET: A 13 mm barium tablet passed into the stomach without difficulty. Visualized portion of the stomach and proximal small bowel are unremarkable. Procedure Note Mindy Rich MD - 07/31/2025 FL BARIUM SWALLOW ESOPHAGRAM DOUBLE CONTRAST HISTORY: GERD. COMPARISON: CT chest 07/30/2025. TECHNIQUE: Double contrast barium swallow examination was performed withSodium Carbonate and Barium. FINDINGS: SWALLOW: No ba aspiration. ESOPHAGUS: Motility: Several low amplitude tertiary contractions and one episode ofreversed peristalsis in the distal esophagus are visualized. Mucosa: No gross mucosal pathology demonstrated fluoroscopically. Distensibility: Normal. GASTROESOPHAGEAL JUNCTION: Small sliding hiatal hernia. GASTROESOPHAGEAL REFLUX: None observed. TABLET: A 13 mm barium tablet passed into the stomach withoutdifficulty. Visualized portion of the stomach and proximal small bowel areunremarkable. IMPRESSION: Small sliding hiatal hernia. Minimal dysmotility without gross mucosalpathology. FLUOROSCOPY TIME: 1 minute NUMBER OF IMAGES: 183 The examination was performed by Fredrick RANDOLPH. Dr. Mindy Rich wasimmediately available for portions of the procedure as needed. ATTESTATION: Mindy Harris as teaching physician, have reviewed theimages for this case and if necessary edited the report originally createdby Fredrick Guadalupe. Lambert Walsh MD IMG [place] [facility] Final Result * T spot TB test (07/30/2025 6:09 PM EDT) T-SPOT.TB Negative Negative [facility] [employer] Comment: (NOTE) A negative test result does not exclude the possibility of exposure to or infection with Mycobacterium tuberculosis (M. tuberculosis). Patients with recent exposure to TB infected individuals exhibiting a negative T-SPOT.TB result should be considered for retesting within 6 weeks or if other relevant clinical symptoms indicate. Results from T-SPOT.TB testing must be used in conjunction with each individual's epidemiological history, current medical status, and results of other diagnostic evaluations. The T-SPOT.TB test is qualitative and results are reported as positive, borderline, or negative, given that the test controls perform as expected. In line with the Centers for Disease Control and Prevention's 2010 recommendation to report quantitative measurements alongside the qualitative result, the laboratory provides spot counts for informational purposes only. The T-SPOT.TB test should not be interpreted as a quantitative test. Panel A Spot Count Corrected For Neg Control 0 [employer] Panel B Spot Count Corrected For Neg Control 2 [employer] Negative Control Passed [facility] Positive Control Passed [facility] Comment: (NOTE) For additional information, please refer to http://education.TRADE TO REBATE.ImageProtect/faq/HIN122 (This link is being provided for informational/ educational purposes only.) Blood 07/30/2025 6:09 PM EDT 07/30/2025 6:22 PM EDT Vini Calhoun PA-C LAB BLOOD ORDERABLES Final Result [employer] [id number] [place], [place] * CT CHEST WITH CONTRAST (07/30/2025 5:15 PM EDT) MGB IMG ASBESTOS COVERER COMMENT Tiny nodules in the right upper and bilateral lower lobes, inflammatory and/or infectious. [facility] Anatomical Region Laterality Modality Chest Computed Tomogra phy 07/30/2025 6:17 PM EDT Impressions 07/30/2025 6:56 PM EDT Tiny groundglass nodules in the right upper lobe and lower lobes bilaterally are likely inflammatory and related to the patient's diagnosis of vasculitis. Infection is also possible, including atypical infection, depending on the patient's symptoms. A clinically significant result was initiated on 07/30/2025 6:56 PM, Message ID [id number]. ATTESTATION: Lorena Harris, as teaching physician have reviewed the images, if any, for this patient's exam, and if necessary, have edited the report originally created by Kolton Schilling. Narrative 07/30/2025 6:[address] CHEST WITH CONTRAST Referring clinician's provided indication for this examination in [facility]: * Lymphadenopathy, chest or axilla; c/f vasculitis TECHNIQUE: Multidetector CT of the chest was performed with intravenous contrast using tailored dose modulation techniques. COMPARISON: None. FINDINGS: Devices/Tubes/Lines: None. Lungs: Numerous tiny groundglass nodules in the upper lobe posterior segment and throughout the lower lobes bilaterally, right greater than left. The central airways are patent. Pleura: No pleural effusion or pneumothorax. Mediastinum: Heart is normal in size. No pericardial effusion. Severe coronary artery calcifications. No aortic aneurysm or dissection. The arch branch vessels are patent. No vessel wall thickening. No obvious esophageal abnormality. Lymph Nodes: No enlarged supraclavicular, axillary, mediastinal, or hilar lymph nodes. Upper Abdomen: Hypodense lesions in the spleen are likely benign and angiomatous. Chest Wall: No chest wall mass. Bones: No acute fracture. Multilevel degenerative changes in the visualized spine. Procedure Note Lorena Fallon MD - 07/30/2025 CT CHEST WITH CONTRAST Referring clinician's provided indication for this examination in [facility]: *Lymphadenopathy, chest or axilla; c/f vasculitis TECHNIQUE: Multidetector CT of the chest was performed with intravenouscontrast using tailored dose modulation techniques. COMPARISON: None. FINDINGS: Devices/Tubes/Lines: None. Lungs: Numerous tiny groundglass nodules in the upper lobe posteriorsegment and throughout the lower lobes bilaterally, right greater thanleft. The central airways are patent. Pleura: No pleural effusion or pneumothorax. Mediastinum: Heart is normal in size. No pericardial effusion. Severecoronary artery calcifications. No aortic aneurysm or dissection. The archbranch vessels are patent. No vessel wall thickening. No obviousesophageal abnormality. Lymph Nodes: No enlarged supraclavicular, axillary, mediastinal, or hilarlymph nodes. Upper Abdomen: Hypodense lesions in the spleen are likely benign andangiomatous. Chest Wall: No chest wall mass. Bones: No acute fracture. Multilevel degenerative changes in thevisualized spine. IMPRESSION: Tiny groundglass nodules in the right upper lobe and lower lobesbilaterally are likely inflammatory and related to the patient's diagnosisof vasculitis. Infection is also possible, including atypical infection,depending on the patient's symptoms. A clinically significant result was initiated on 07/30/2025 6:56 PM,Message ID [id number]. ATTESTATION: Lorena Harris, as teaching physician have reviewed theimages, if any, for this patient's exam, and if necessary, have edited thereport originally created by Kolton Schilling. us Noel Leong PA-C IMG CT CHEST Final Re sult * Lab Add On: HgbA1C (07/30/2025 4:34 PM EDT) TEST REQUESTED HGBA1C [facility] Comments (Chemistry) Request received [facility] 07/30/2025 4:34 PM EDT 07/30/2025 4:46 PM EDT us Nathan Chavarria MD LAB BLOOD ORDERABLES Fin al Result [facility] [address] [place] [phone] * (ABNORMAL) SPEP panel with immunofixation (07/30/2025 4:28 PM EDT) TOTAL PROTEIN 7.1 6.4 - 8.3 g/dL [facility] SPEP SEE PATHOLOGY REPORT [facility] IMMUNOFIXATION SEE PATHOLOGY REPORT [facility] IgA 905(H) 70 - 400 mg/dL [facility] IMMUNOGLOBULIN G 1,096 700 - 1,600 mg/dL [facility] IMMUNOGLOBULIN M 88 40 - 230 mg/dL [facility] Blood 07/30/2025 4:28 PM EDT 07/30/2025 4:39 PM EDT [facility] LAB BLOOD ORDERABLES Final Result Performing Organization Address City/[facility] Co de Phone Number [facility] [address] [place] [phone] * Rheumatoid factor (07/30/2025 4:28 PM EDT) RHEUMATOID FACTOR <13 <13 IU/ml [facility] Blood 07/30/2025 4:28 PM EDT 07/30/2025 4:40 PM EDT [facility] PA-C LAB BLOOD ORDERABLES Final Result Performing Organization Address [facility] Co de Phone Number [facility] [address] [place] [address] * Complement C3 (07/30/2025 4:28 PM EDT) C3 128 90 - 180 mg/dl [facility] Comment: Blood 07/30/2025 4:28 PM EDT 07/30/2025 4:39 PM EDT [facility] LAB BLOOD ORDERABLES Final Result Performing Organization Address [facility] Co de Phone Number [facility] [address] [place] [address] * Complement C4 (07/30/2025 4:28 PM EDT) C4 21 10 - 40 mg/dL [facility] Comment: Blood 07/30/2025 4:28 PM EDT 07/30/2025 4:39 PM EDT Vini Calhoun PA-C LAB BLOOD ORDERABLES Final Result [facility] [address] [place] [id number] * US Temporal Artery Duplex Complete (Bilateral) (07/30/2025 3:15 PM EDT) Anatomical Region Laterality Modality Heart, Thoracic Vasculature, Head Ultrasound Narrative 07/31/2025 10:52 AM EDT There is no evidence of arteritis. Temporal Artery Right COMMON SUPERFICIAL TEMPORAL ARTERY ; Negative halo sign. TEMPORAL ARTERY FRONTAL BRANCH ; Negative halo sign. TEMPORAL ARTERY PARIETAL BRANCH ; Negative halo sign. FACIAL ARTERY ; Negative halo sign. A Duplex ultrasound was performed to evaluate the right common superficial temporal, parietal, and frontal arteries to detect temporal arteritis. The right common carotid, subclavian, vertebral and axillary arteries were also evaluated to detect large vessel arteritis. Due to jaw claudication symptoms the right facial artery was also assessed. The above mentioned arteries had normal color Doppler and harvey scale with no evidence of wall thickening or halo sign. Temporal Artery Left COMMON SUPERFICIAL TEMPORAL ARTERY ; Negative halo sign. TEMPORAL ARTERY FRONTAL BRANCH ; Negative halo sign. TEMPORAL ARTERY PARIETAL BRANCH ; Negative halo sign. FACIAL ARTERY ; Negative halo sign. A Duplex ultrasound was performed to evaluate the left common superficial temporal, parietal, and frontal arteries to detect temporal arteritis. The left common carotid, subclavian, vertebral and axillary arteries were also evaluated to detect large vessel arteritis. Due to jaw claudication symptoms the left facial artery was also assessed. The above mentioned arteries had normal color Doppler and harvey scale with no evidence of wall thickening or halo sign. Introductory Comments No priors. Jaw claudication. Vini Calhoun PA-C CV US NEUROVASCULAR Final R esult * (ABNORMAL) Urine Sediment (07/30/2025 12:40 PM EDT) WBC 1 <10 /hpf [facility] RBC 8(H) 0 - 2 /hpf [facility] BACTERIA None None /hpf [facility] SQUAMOUS CELLS Trace(A) None /hpf [facility] HYALINE CAST 0-2 0 - 2 /lpf [facility] TRANSITIONAL EPITH None None /hpf [facility] 07/30/2025 12:4 0 PM EDT 07/30/2025 12:53 PM EDT [facility] [employer] PA-C URINE ORDERABLES Final R esult Performing Organization Address [facility] de Phone Number [address] [address] * (ABNORMAL) Urinalysis w/reflex Urine Culture (07/30/2025 12:40 PM EDT) Urine Culture Reflex NO [facility] COLOR LT YELLOW(A) Yellow [facility] CLARITY Clear Clear [facility] GLUCOSE 1+(A) Negative [facility] BILI Negative Negative [facility] KETONES Negative Negative [facility] SPECIFIC GRAVITY 1.023 1.003 - 1.035 [facility] BLOOD 2+(A) Negative [facility] PH 5.5 4.5 - 8.0 [facility] Protein-UA Negative Negative [facility] UROBILINOGEN Negative Negative [facility] NITRITE Negative Negative [facility] Leukocyte esterase, ur Negative Negative [facility] Urine (Urine) 07/30/2025 12: 40 PM EDT 07/30/2025 12:53 PM EDT [facility] [employer] PA-C URINE ORDERABLES Final R esult Performing Organization Address [facility] de Phone Number [address] [address] * Toxicology screen, urine (07/30/2025 12:40 PM EDT) URINE AMPHETAMINES Negative Negative [facility] Comment: THIS SCREENING TEST WAS PERFORMED USING IMMUNOASSAY TECHNOLOGY, WHICH MAY OCCASIONALLY YIELD FALSE NEGATIVE OR FALSE POSITIVE RESULTS. IF A DEFINITIVE RESULT IS NEEDED, FURTHER CONFIRMATORY TESTING SHOULD BE REQUESTED. URINE BENZODIAZEPINE Negative Negative [facility] Comment: THIS SCREENING TEST WAS PERFORMED USING IMMUNOASSAY TECHNOLOGY, WHICH MAY OCCASIONALLY YIELD FALSE NEGATIVE OR FALSE POSITIVE RESULTS. IF A DEFINITIVE RESULT IS NEEDED, FURTHER CONFIRMATORY TESTING SHOULD BE REQUESTED. URINE COCAINE METAB Negative Negative [facility] Comment: THIS SCREENING TEST WAS PERFORMED USING IMMUNOASSAY TECHNOLOGY, WHICH MAY OCCASIONALLY YIELD FALSE NEGATIVE OR FALSE POSITIVE RESULTS. IF A DEFINITIVE RESULT IS NEEDED, FURTHER CONFIRMATORY TESTING SHOULD BE REQUESTED. URINE OPIATES Negative Negative [facility] Comment: THIS SCREENING TEST WAS PERFORMED USING IMMUNOASSAY TECHNOLOGY, WHICH MAY OCCASIONALLY YIELD FALSE NEGATIVE OR FALSE POSITIVE RESULTS. IF A DEFINITIVE RESULT IS NEEDED, FURTHER CONFIRMATORY TESTING SHOULD BE REQUESTED. URINE OXYCODONE Negative Negative [facility] Comment: THIS SCREENING TEST WAS PERFORMED USING IMMUNOASSAY TECHNOLOGY, WHICH MAY OCCASIONALLY YIELD FALSE NEGATIVE OR FALSE POSITIVE RESULTS. IF A DEFINITIVE RESULT IS NEEDED, FURTHER CONFIRMATORY TESTING SHOULD BE REQUESTED. Fentanyl, urine Negative Negative [facility] Comment: THIS SCREENING TEST WAS PERFORMED USING IMMUNOASSAY TECHNOLOGY, WHICH MAY OCCASIONALLY YIELD FALSE NEGATIVE OR FALSE POSITIVE RESULTS. IF A DEFINITIVE RESULT IS NEEDED, FURTHER CONFIRMATORY TESTING SHOULD BE REQUESTED. CREAT 126.6 20.0 - 300.0 mg/dL [facility] Comment: Urine (Urine) 07/30/2025 12: 40 PM EDT 07/30/2025 12:53 PM EDT Noel P Topsfield PA-C URINE ORDERABLES Final R esult Performing Organization Address [facility] Co de Phone Number [facility] [address] [place] [phone] * Hepatitis acute panel (07/30/2025 11:50 AM EDT) HBV SURFACE ANTIGEN Nonreactive (HBsAg Negative) Nonreactive (HBsAg Negative) [facility] Hepatitis A Antibody, IgM Nonreactive Nonreactive [facility] HEP B CORE IGM AB Nonreactive Nonreactive [facility] HCV Nonreactive Nonreactive [facility] Blood 07/30/2025 11:5 0 AM EDT 07/30/2025 12:50 PM EDT Noel P Topsfield PA-C LAB BLOOD ORDERABLES Fin al Result Performing Organization Address [facility]/ZIP Co de Phone Number [facility] [address] [place] [phone] * Cryoglobulins (07/30/2025 11:50 AM EDT) Pathologist [facility] [place] CRYOGLOBULIN 0 0 % [facility] Blood 07/30/2025 11:5 0 AM EDT 07/30/2025 12:50 PM EDT Comment:#A1C ADDED @ [id number] us Noel P Topsfield PA-C LAB BLOOD ORDERABLES Fin al Result Performing Organization Address City/[facility]/ZIP Co de Phone Number [facility] [address] [place] [address] * C-reactive protein, high sensitivity (07/30/2025 11:50 AM EDT) Pathologist [facility] [place] CRP, HIGH SENSITIVITY 2.2 0.0 - 3.0 mg/L [facility] Comment: For cardiac risk assessment, reference range is <3.0mg/L. For inflammation assessment, reference range is <10.0mg/L. Blood 07/30/2025 11:5 0 AM EDT 07/30/2025 12:50 PM EDT Comment:#A1C ADDED @ [id number] Noel P Topsfield PA-C LAB BLOOD ORDERABLES Fin al Result Performing Organization Address [facility] Co de Phone Number [facility] [address] [place] [phone] * HIV-1/2 antigen/antibody (07/30/2025 11:50 AM EDT) Pathologist [facility] [place] HIV 1/2 AB/AG Nonreactive Nonreactive [facility] Comment:No HIV 1/2 antibody or HIV 1 antigen detected. Blood 07/30/2025 11:5 0 AM EDT 07/30/2025 12:50 PM EDT Noel P Dang PA-C LAB BLOOD ORDERABLES Fin al Result Performing Organization Address [facility] Co de Phone Number [facility] [address] [place] [phone] * LFTs (hepatic panel) (07/30/2025 11:50 AM EDT) Pathologist [facility] [place] TOTAL PROTEIN 7.8 6.4 - 8.3 g/dL [facility] ALBUMIN 3.9 3.5 - 5.2 g/dL [facility] GLOBULIN 3.9 2.2 - 4.2 g/dL [facility] AST RESULT NOT REPORTED, HEMOLYSIS 10 - 50 U/L [facility] Comment: ALT RESULT NOT REPORTED, HEMOLYSIS 10 - 50 U/L [facility] Comment: ALKALINE PHOSPHATASE 81 35 - 130 U/L [facility] TOTAL BILIRUBIN 0.4 0.0 - 1.0 mg/dL [facility] DIRECT BILIRUBIN RESULT NOT REPORTED, HEMOLYSIS 0.0 - 0.3 mg/dL [facility] Blood 07/30/2025 11:5 0 AM EDT 07/30/2025 12:50 PM EDT Noel KNAPP-C LAB BLOOD ORDERABLES Fin al Result Performing Organization Address [facility] Co de Phone Number [facility] [address] [place] [phone] * Anti-Neutrophil Cytoplasmic Antibody (ANCA) (07/30/2025 11:50 AM EDT) ANCA Negative Negative [facility] ANTI-MPO AB <3.2 0 - 19 CU [facility] Comment:SEMIQUANTITATIVE MET HOD PERFORMED ANTI-PR3 <2.3 0 - 19 CU [facility] Comment:SEMIQUANTITATIVE MET HOD PERFORMED Blood 07/30/2025 11:5 0 AM EDT 07/30/2025 12:50 PM EDT Comment:#A1C ADDED @ 7515 PE R Noel KNAPP-C LAB BLOOD ORDERABLES Fin al Result [facility] [address] [place] [address] * (ABNORMAL) Sedimentation rate (ESR) (07/30/2025 11:50 AM EDT) ESR 21(H) 0 - 20 mm/h [facility] Comment:Erythrocyte Sediment ation Rate (ESR) reference range change effective 09/09/2019. Blood 07/30/2025 11:5 0 AM EDT 07/30/2025 12:50 PM EDT Noel Leong PA-C LAB BLOOD ORDERABLES Fin al Result Performing Organization Address City/[facility]/ZIP Co de Phone Number [facility] [address] [place] [address] * PT-INR (07/30/2025 11:50 AM EDT) PT 11.3 10.0 - 13.0 sec [facility] INR 1.0 0.9 - 1.1 [facility] Blood 07/30/2025 11:5 0 AM EDT 07/30/2025 12:50 PM EDT Noel Leong PA-C LAB BLOOD ORDERABLES Fin al Result Performing Organization Address [facility] de Phone Number [facility] [address] [place] [phone] * (ABNORMAL) CBC and differential (07/30/2025 11:50 AM EDT) WBC 16.42(H) 4.00 - 11.00 K/uL [facility] RBC 4.70 4.50 - 5.90 M/uL [facility] HGB 15.4 13.5 - 17.5 g/dL [facility] HCT 45.8 41.0 - 53.0 % [facility] PLT 348 150 - 450 K/uL [facility] MCV 97.4 80.0 - 100.0 fL [facility] MCH 32.8(H) 27.0 - 31.0 pg [facility] MCHC 33.6 32.0 - 36.0 g/dL [facility] RDW 12.5 11.5 - 14.5 % [facility] MPV 10.7 8.4 - 12.0 fL [facility] NRBC 0.00 0.00 /100 WBCs [facility] ABSOLUTE NRBC 0.00 0.00 K/uL [facility] DIFF METHOD Auto [facility] NEUTS 84.4(H) 48.0 - 76.0 % [facility] LYMPHS 7.9(L) 18.0 - 41.0 % [facility] MONOS 5.5 4.0 - 11.0 % [facility] EOS 0.1 0.0 - 5.0 % [facility] BASOS 0.3 0.0 - 1.5 % [facility] % IMMATURE GRANS 1.8(H) 0.0 - 0.9 % [facility] ABSOLUTE NEUTS 13.86(H) 1.92 - 7.60 K/uL [facility] Comment:1.21-5.39 cells/KL i s the reference range for individuals with the Sarabia null phenotype ABSOLUTE LYMPHS 1.30 0.72 - 4.10 K/uL [facility] ABSOLUTE MONOS 0.90 0.16 - 1.10 K/uL [facility] ABSOLUTE EOS 0.02 0.00 - 0.50 K/uL [facility] ABSOLUTE BASOS 0.05 0.00 - 0.15 K/uL [facility] ABS IMMATURE GRANS 0.29(H) 0.00 - 0.09 K/uL [facility] ABSOLUTE NEUTROPHIL COUNT 13.86(H) 1.92 - 7.60 K/uL [facility] Comment: Automated cell count. Manual ANC may differ if performed. 1.21-5.39 cells/KL is the reference range for individuals with the Sarabia null phenotype Blood 07/30/2025 11:5 0 AM EDT 07/30/2025 12:50 PM EDT us Noel Leong PA-C LAB BLOOD ORDERABLES Fin al Result [facility] [address] [place] [address] * Antinuclear antibody (ADIS) (07/30/2025 11:50 AM EDT) ADIS Result Negative Negative [facility] Blood 07/30/2025 11:5 0 AM EDT 07/30/2025 12:52 PM EDT us Noel Leong PA-C LAB BLOOD ORDERABLES Fin al Result Performing Organization Address [facility] Co de Phone Number [facility] [address] [place] [address] * Magnesium (07/30/2025 11:50 AM EDT) Pathologist [facility] [place] MAGNESIUM 2.1 1.7 - 2.6 mg/dL [facility] Blood 07/30/2025 11:5 0 AM EDT 07/30/2025 12:50 PM EDT [facility] LAB BLOOD ORDERABLES Fin al Result Performing Organization Address [facility] de Phone Number [facility] [address] [place] [phone] * (ABNORMAL) Hemoglobin A1c (07/30/2025 11:50 AM EDT) Pathologist [facility] [place] HEMOGLOBIN A1C 6.2(H) 4.2 - 5.6 % [facility] Comment: HbA1c levels 5.7-6.4% represent pre-diabetes, indicating impaired glucose control and an increased risk of developing diabetes. The diagnostic HbA1c level for diabetes is 6.5% or greater. HbA1c is performed by the Steve Liliana-quant immunoassay method which does not detect (incidental) hemoglobin variants. Hemoglobin electrophoresis should be ordered in patients with suspected hemoglobinopathies. CALC MEAN BLD GLUC 130 mg/dL [facility] Comment:The Calculated Mean Blood Glucose (CMBG) represents the estimated average glucose calculated from the measured hemoglobin A1c (HbA1c). There is no established normal range for the CMBG, however a 5.6% HbA1c (upper limit of normal) represents a CMBG of 114 mg/dL. 07/30/2025 11:5 0 AM EDT 07/30/2025 12:50 PM EDT Comment:#A1C ADDED @ [address] [facility] LAB BLOOD ORDERABLES Fin al Result Performing Organization Address [facility] Co de Phone Number [facility] [address] [place] [phone] * (ABNORMAL) Basic metabolic panel (07/30/2025 11:50 AM EDT) SODIUM 134(L) 136 - 145 mmol/L [facility] POTASSIUM 5.2(H) 3.4 - 5.1 mmol/L [facility] Comment: SPECIMEN HEMOLYZED, INTERPRET WITH CAUTION. HEMOLYTIC INDEX (HI) 132. EACH 100 HI UNITS INCREASE POTASSIUM CONCENTRATION BY APPROX. 0.3 mmol/L. CHLORIDE 98 98 - 107 mmol/L [facility] CO2 19(L) 22 - 31 mmol/L [facility] BUN 26(H) 6 - 23 mg/dL [facility] CREATININE 1.08 0.50 - 1.20 mg/dL [facility] GLUCOSE 175(H) 70 - 100 mg/dL [facility] CALCIUM 9.4 8.8 - 10.7 mg/dL [facility] EGFR 81 >59 mL/min/1. 73m2 [facility] Comment:Estimated glomerular filtration rate calculated using the CKD-EPI refit equation. ANION GAP 17 7 - 17 mmol/L [facility] Blood 07/30/2025 11:5 0 AM EDT 07/30/2025 12:50 PM EDT us Noel Leong PA-C LAB BLOOD ORDERABLES Fin al Result Performing Organization Address City/State/[facility] Co de Phone Number [facility] [address] [place] [address] * Protein Electrophoresis (07/30/2025 12:00 AM EDT) 07/30/2025 07/30/2025 Narrative [facility] - 08/05/2025 10:17 PM EDT CASE: [id number] PATIENT: MINDY WHITLEY Date: 1970 Sex: Male [facility] Department of Pathology [address] [place] [address] License No.: [id number] Plant Maintenance Manager: Erin Chambers MD, PhD Resident: Chito Powers M.D., M.S. Pathologist: Bk Tavera M.D., Ph.D. CLINICAL DATA: Clinical Diagnosis: TEST ORDERED: Serum protein electrophoresis professional interpretation - [facility] Serum immunofixation electrophoresis professional interpretation - [facility] RESULT: Reference range Total Protein 7.1 g/dl 6.4 - 8.3 g/dL Albumin 3.25 g/dl 3.20 - 5.30 g/dL Alpha 1 0.20 g/dl 0.10 - 0.40 g/dL Alpha 2 0.88 g/dl 0.50 - 1.00 g/dL Beta 1.62 g/dl (HI) 0.60 - 1.20 g/dL Gamma 1.15 g/dl 0.80 - 1.70 g/dL IgG 1096 mg/dL 700 - 1600 mg/dL IgA 905 mg/dL (HI) 70 - 400 mg/dL IgM 88 mg/dL 40 - 230 mg/dL MOST RECENT PRIOR SERUM ELECTROPHORESIS RESULTS: Date Beta Gamma [place] Lambda K/L IgG IgA IgM MSp1 MSp2 MSp3 g/dl g/dl mg/l mg/l mg/dl mg/dl mg/dl g/dl g/dl g/dl INTERPRETATION: Protein Electrophoresis: -No M-spike detected Increased Beta. Major beta proteins include beta-lipoprotein, transferrin, complement components C3 and C4, and beta2-microglobulin. Immunofixation: -No monoclonal gammopathy By his/her signature below, the senior physician certifies that he/she personally reviewed all the laboratory data of the described specimen(s) and rendered or confirmed the diagnosis(es) related thereto. Final Diagnosis by Bk Tavera M.D., Ph.D., Electronically signed on Tuesday August 05, 2025 at 10:16:29PM Vini Calhoun PA-C PATHOLOGY ORDERABLES Final Result Performing Organization Address City/State/[facility] Co de Phone Number [facility] [address] [place] [phone] from Last 3 Months Insurance [facility] OUT OF STATE PPO [place] OUT [place] OUT [place] STATE P[place] OUT OF STATE PPO Member Subscriber Plan / Payer (Ef fective 2022-Present) Name:Mindy Whitley Member ID:[id number] Relation to Subscriber:Self Name:Mindy Whitley Subscriber ID:[id number] Payer ID:[id number] (NAIC) Type:PPO Address: [address] [place] [address] BLUE CROSS OUT OF STATE PPO Care Teams [place] Erector Relationship Specialty Start Date End Date Iftikhar Naik NP [address] [place] [address] PCP - General Nurse Practitioner 07/29/25 Additional Source Comments The information contained in this document represents components of the legal health record. It is not the complete legal health record.[facility]
[2025-08-11 08:05] VITALS: BP 112/70; PULSE 78; RESP 16; O2SAT 98; BMI 42.3
--- NOTE | 2025-08-11 08:05 | MHC.PC.OV ---
Vital Signs 08/11/25 08:05 Height 5 ft 8 in Weight 278 lb BMI 42.3 BP 112/70 Blood Pressure Location Lt brachial Position Sitting Respiration 16 Pulse 78 Pulse Source Pulse Oximeter Pulse Oximetry (%) 98 Oxygen Delivery Method Room Air Intake Visit Reasons: PE Machine Feeder Raw Stock Required: No Allergies No Known Allergies Allergy (Verified 08/11/25 08:27) Medication List - Last Reconciled 08/11/25 by CRISTA Earl-SHERICE atorvastatin 40 mg PO DAILY 90 days cholecalciferol (vitamin D3) 50 mcg PO DAILY 90 days fluocinonide 0.05% 1 appl topical BID lisinopril-hydrochlorothiazide 20-12.5 mg 1 tab PO DAILY 90 days metoprolol succinate ER (Toprol XL) 150 mg (3 x 50 mg) PO DAILY omeprazole 20 mg PO DAILY 90 days prednisone 40 mg PO DAILY tadalafil (Cialis) 10 mg PO DAILY PRN 10 days valacyclovir 500 mg PO DAILY Tobacco use date assessed: 08/11/25 Dental Screening Dental Screen Date: 08/11/25 Did you have a dental visit in the last 12 months?: Yes Did you have a dental problem in the last 6 months where you did not have access to dental care?: No Was dental information given to patient?: Patient has dentist HPI PE HPI Details History of Present Illness The patient is a 55-year-old male presenting for a physical examination and management of leukocytoclastic vasculitis. The leukocytoclastic vasculitis was initially identified as a petechial rash on the popliteal region, which subsequently spread throughout the body. The condition is currently improving with treatment, and the patient is on a prednisone taper, currently at 40 mg daily. He is under the care of a specialist in [place] and will follow up with a engineer specialist and online tutor. The patient also reports episodes of syncope, with the most recent occurrence two days ago. During these episodes, his significant other observed his eyes rolling back, but there were no convulsions or foaming at the mouth. The patient attributes these episodes to not eating and consuming alcohol, although he reports minimal intake. He has a history of atrial fibrillation, which is being monitored by cardiology. The patient denies any symptoms related to atrial fibrillation. The patient is morbidly obese and has developed a mckeon face, possibly due to prednisone and poor diet. Weight loss was emphasized during the visit. Health Maintenance - Weight management: Importance of weight loss reinforced -seeing rheum/derm ([place]) -colon screen is up to date Social History - Substance use: Reports alcohol consumption, minimal intake Review of Systems - Cardiovascular: Denies chest pain, orthopnea, or syncope symptoms related to atrial fibrillation - Neurological: Reports episodes of syncope, denies convulsions or foaming at the mouth - Gastrointestinal: Denies abdominal pain, blood in stool, constipation, or diarrhea - Psychiatric: Denies suicidal or homicidal ideation Physical Exam General: Cooperative, healthy appearing, comfortable, no acute distress and well developed, morbidly obese Orientation: Patient oriented x3 Limitations: No limitations Head: Normal to inspection Ears: Hearing grossly normal bilaterally Nose: Normal external nose present Face and sinus: Normal facial exam Eyes: Appearance normal, both eyes and all related structures Neck: Normal visual inspection and Yes full ROM Respiratory: Normal respiratory effort and able to speak in complete sentences. Clear to auscultation bilaterally Cardiovascular: Irregularly irregular heart rhythm, AFib noted GI: Normal to inspection. Soft to palpation and nontender : Testicles without masses/lesions and no hernias appreciated Skin: Residual macular and confluent and discrete lesions on lower extremities, bilateral upper extremities, and upper torso Neuro: Patient oriented x3 CN2-12 intact, finger to thumb intact Extremities: Normal to inspection Results Plan 1. Leukocytoclastic Vasculitis The patient is currently on a prednisone taper, with a dosage of 40 mg daily, to manage the leukocytoclastic vasculitis. He is under the care of a specialist in [place] and will follow up with a engineer specialist and online tutor for further management. 2. Atrial Fibrillation The patient is being monitored by cardiology for atrial fibrillation. 3. Syncope The patient reports episodes of syncope, attributed to not eating and alcohol consumption. An EEG and CT of the head are planned to further evaluate these episodes. will also refer to neuro for an eval 4. Obesity The patient is advised on the importance of weight loss, with emphasis on dietary modifications. Discussion Notes any worsening symptoms, told to go to the ER. Patient Instructions [facility] Medical History Leukocytoclastic vasculitis Petechial rash Sleep apnea Genital herpes in men Hypertension Acid reflux GERD (gastroesophageal reflux disease) Dyslipidemia Cardiomyopathy PAF (paroxysmal atrial fibrillation) Surgical History History of placement of ear tubes History of removal of cyst Family History Father CVD (cardiovascular disease) Myocardial infarction Mother Stroke Sister No problems noted. 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 1. Little interest or pleasure in doing things: not at all 2. Feeling down, depressed, or hopeless: not at all 3. Trouble falling or staying asleep, or sleeping too much: nearly every day 4. Feeling tired or having little energy: not at all 5. Poor appetite or overeating: several days 6. Feeling bad about yourself - or that you are a failure or have let yourself or your family down: not at all 7. Trouble concentrating on things, such as reading the newspaper or watching television: not at all 8. Moving or speaking so slowly that other people could have noticed. Or the opposite - being so fidgety or restless that you have been moving around a lot more than usual: not at all 9. Thoughts that you would be better off or of hurting yourself in some way: not at all Total score: 4 Depression Screening Interpretation: Negative Depression Screening Done: Yes 93803 - PHQ-9 Billing: Yes Source: Developed by Drs. Grodon Gerard, Nani Juarez, Nomr Luo and colleagues, with an educational fiorella from [employer]. Thrive Questionnaire Date Thrive assessed: 08/04/25 I am a: Patient What is your living situation today?: I have a steady place to live Within the past 12 months, did the food you bought not last and you didn't have the money to get more?: Never true Within the past 12 months, did you worry whether your food would run out before you got money to buy more?: Never true Do you have trouble paying for medicines?: No Do you have trouble getting transportation to medical appointments?: No Do you have trouble paying your heating and electricity bill?: No Do you have trouble taking care of your child, family member or friend?: No Do you have trouble with day-to-day activities such as bathing, preparing meals, shopping, managing finances, etc.?: No Are you currently unemployed and looking for a job?: No Are you interested in more education?: No Please select the resources that you would like help with: None Currently or been in a relationship where the following occur: No concerns reported THRIVE Score: 0 AUDIT C Alcohol Use Questionnaire (AUDIT-C) 1. How often do you have a drink containing alcohol?: 4 or more times a week 2. How many drinks containing alcohol do you have on a typical day when you are drinking?: 1 or 2 3. How often do you have six or more drinks on one occasion?: Weekly Total Score: 7 TIARA-7 AMB Questionnaire TIARA-7 Date TIARA - 7 assessed: 08/11/25 Feeling nervous, anxious, or on edge: 0 = Not at all Not being able to stop or control worryin = Not at all Worrying too much about different things: 0 = Not at all Trouble relaxin = Not at all Being so restless that it is hard to sit still: 0 = Not at all Becoming easily annoyed or irritable: 1 = Several days Feeling afraid as if something awful might happen: 0 = Not at all Total TIARA-7 score (0-4 normal; 5-9 mild; 10-14 moderate; 15-21 severe): 1 Source: Developed by Drs. Gordon Gerard, Nani Juarez, Norm Luo and colleagues, with an educational fiorella from [employer]. TIARA-7 Assessment Billing TIARA-7 Assessment Tool: TIARA-7 Assessment 28533 Physical exam (Primary Care) Vital Signs: Last Vital Signs Pulse 78 08/11/25 08:05 Resp 16 08/11/25 08:05 BP 112/70 08/11/25 08:05 Pulse Ox 98 08/11/25 08:05 Oxygen Delivery Method Room Air 08/11/25 08:05 BMI result Body Mass Index 42.3 Tobacco/Smoking Status: Tobacco use Status Tobacco use date assessed 08/11/25 08/11/25 08:13 Patient Tobacco Use Status Current someday Tobacco 08/11/25 08:13 Tobacco use type Cigarette 08/11/25 08:13 e-Cigarette/Vaping Use Never Used 08/11/25 08:13 PHQ-9: PHQ-9 Score PHQ-9: Total score 4 08/11/25 08:28 Depression Screening Interpretation: Negative Thrive Assessment: Date of Thrive Assessment Date Thrive assessed 08/04/25 08/11/25 08:13 Currently or been in a relationship where the following occur: No concerns reported Coding Level of Care Code Est Pt Level 3 (47188) Est Pt Prev Care 40-64y(92037) Diagnoses Encounter for routine adult physical exam with abnormal findings Z00. Screening PSA (prostate specific antigen) Z12.5 Sleep disorder breathing G47.30 LOC (loss of consciousness) R40.20 Persistent atrial fibrillation I48.19 Additional Codes TIARA-7 Assessment Billing - TIARA-7 Assessment Tool: TIARA-7 Assessment 07798 ([id number]) PHQ-9 - 23226 - PHQ-9 Billing: Yes ([id number]) Assessment & Plan Assessment & Plan (1) Encounter for routine adult physical exam with abnormal findings: Code(s): Z00.01 - Encounter for general adult medical examination with abnormal findings Category: Medical (2) Screening PSA (prostate specific antigen): Code(s): Z12.5 - Encounter for screening for malignant neoplasm of prostate Category: Medical (3) Sleep disorder breathing: Code(s): G47.30 - Sleep apnea, unspecified Category: Medical (4) LOC (loss of consciousness): Code(s): R40.20 - Unspecified coma Category: Medical (5) Persistent atrial fibrillation: Code(s): I48.19 - Other persistent atrial fibrillation Category: Medical Plan . Orders: Orders UA CC w/rflx Micro + Cult Today Z00.01 - Encounter for general adult medical examination with abnormal findings Lipid Panel Today Z00.01 - Encounter for general adult medical examination with abnormal findings EEG Routine Today R40.20 - Unspecified coma AMB EKG-In Office Today I48.19 - Other persistent atrial fibrillation Complete Blood Count Auto Diff Today Z00.01 - Encounter for general adult medical examination with abnormal findings Comprehensive [place]. Panel Fast Today Z00.01 - Encounter for general adult medical examination with abnormal findings TSH reflex Free T4 Today Z00.01 - Encounter for general adult medical examination with abnormal findings Prostate Specific Antigen Scr Today Z12.5 - Encounter for screening for malignant neoplasm of prostate CT head/brain wo IV con Today R40.20 - Unspecified coma Referrals Neurology Referral R40.20 - Unspecified coma Sleep Medicine Referral G47.30 - Sleep apnea, unspecified
--- OUTSIDE RECORDS SUMMARY | 2025-08-11 08:05 | XMS_ITS | Encounter Summary ---
Author Organization [facility] Address [address] [place] [address] Phone Care Team Providers Care Crabbing Machine Operator Name Role Phone Iftikhar Naik BIOMETRIC SCREENER Primary Care Provider + Encounter Details Date Type Department Care Team (Late st Contact Info) Description 07/30/2025 Procedure Pass [facility] [address] [place] [phone] Social History Tobacco Use Types Packs/Day Years Used Date Smoking Tobacco: Some Days Cigarettes Smokeless Tobacco: Never Education Answer Date Recorded Are you interested [...] on file Sexual Orientation Not on file documented as of this encounter Functional Status * Calculated C-SSRS Risk Score (Lifetime/Recent) Answer Date of Assessment Author No Risk Indicated 07/30/2025 12:58 PM EDT Gabriel Vinson RN * [place] Suicide Severity Rating Scale (Screener/Recent Self-Report) Question Answer Date of Assessment Author 1. Wish to be (Past 1 Month) No 07/30/2025 12:58 PM EDT [place] Mai RN 2. Non-Specific Active Suicidal Thoughts (Past 1 Month) No 07/30/2025 12:58 PM EDT [place] Mai RN 6. Suicidal Behavior (Lifetime) No 07/30/2025 12:58 PM EDT [place] Mai RN documented as of this encounter Plan of Treatment Upcoming Encounters Date Type Department Care Team (Late st Contact Info) Description 08/06/2025 Procedure Pass [facility] CT Imaging, [address] [place] [address] 08/20/2025 11:00 AM EDT Appointment [facility], X-Ray - [address] [address] Lambert Walsh MD [address] [place] [phone] [email or web address] 09/16/2025 10:00 AM EST Appointment [facility] CT Imaging, [address] [place] [address] Lambert Walsh MD [address] [place] [phone] [email or web address] 09/16/2025 11:00 AM EST Office Visit [facility] [address] [place] [address] [place] [address] Tamara Schmidt MD [address] [phone] [email or web address] 09/16/2025 11:00 AM EST Office Visit [facility] [place] [address] [place] [address] Lambert Walsh MD [address] [place] [address] [email or web address] documented as of this encounter Visit Diagnoses Not on filedocumented in this encounter Care Teams Crabbing Machine Operator Relationship Specialty Start Date End Date Iftikhar Naik NP [facility] [place] [address] PCP - General Nurse Practitioner 07/29/25 documented as of this encounter Additional Source Comments The information contained in this document represents components of the legal health record. It is not the complete legal health record.[facility]
--- OUTSIDE RECORDS SUMMARY | 2025-08-11 08:05 | XMS_ITS | Encounter Summary ---
Author Organization [facility] Address [address] [place] [address] Phone Care Team Providers Care Superintendent Local Name Role Phone Iftikhar Naik OBSTETRICAL TECH Primary Care Provider + Reason for Visit * Reason Onset Date Comments [email or web address] pt 07/29/2025 Encounter Details Date Type Department Care Team (Late st Contact Info) Description 07/29/2025 Telephone [facility] [address] [place] [address] [place] [address] Lambert Walsh MD [address] [place] [phone] [email or web address] Social History Tobacco Use Types Packs/Day Years Used Date Smoking Tobacco: Never Assessed Education Answer Date Recorded Are you interested [...] 12:58 PM EDT Gabriel Vinson RN * [place] Suicide Severity Rating Scale (Screener/Recent Self-Report) Question Answer Date of Assessment Author 1. Wish to be (Past 1 Month) No 07/30/2025 12:58 PM EDT [place] Mai RN 2. Non-Specific Active Suicidal Thoughts (Past 1 Month) No 07/30/2025 12:58 PM EDT [place] Mai RN 6. Suicidal Behavior (Lifetime) No 07/30/2025 12:58 PM EDT [place] Mai RN documented as of this encounter Progress Notes * Ita Velarde - 07/29/2025 9:56 AM EDT Good morning, Pt's friend Sandra calling regarding scheduling a new pt urgent apt w Dr. Walsh. A urgent referral should be received soon. Sandra wanted to note she already spoke with Dr. Walsh, her provider, through the portal. She also wanted to add her number as a CB # for scheduling in case the pt does not answer. Sandra CB# [phone] Thank you Ita Tamayo Patient Coal Trimmer Department of Medicine [facility] documented in this encounter Plan of Treatment Upcoming Encounters Date Type Department Care Team (Late st Contact Info) Description 08/06/2025 Procedure Pass [facility] CT Imaging, [place] [address] [place] [address] 08/20/2025 11:00 AM EDT Appointment [facility], X-Ray - [facility] [address] [place] [address] Lambert Walsh MD [address] [place] [phone] [email or web address] 09/16/2025 10:00 AM EST Appointment [facility] CT Imaging, [address] [address] [place] [address] Lambert Walsh MD [address] [place] [phone] [email or web address] 09/16/2025 11:00 AM EST Office Visit [facility] [address] [place] [address] Tamara Schmidt MD [address] [phone] [email or web address] 09/16/2025 11:00 AM EST Office Visit [facility] [address] [place] [address] Lambert Walsh MD [address] [place] [phone] [email or web address] documented as of this encounter Visit Diagnoses Not on filedocumented in this encounter Care Teams Superintendent Local Relationship Specialty Start Date End Date Iftikhar Naik NP [address] [facility] [place] [address] PCP - General Nurse Practitioner 07/29/25 documented as of this encounter Additional Source Comments The information contained in this document represents components of the legal health record. It is not the complete legal health record.[facility]
--- OUTSIDE RECORDS SUMMARY | 2025-08-11 08:05 | XMS_ITS | Encounter Summary ---
Author Organization [facility] Address [address] [place] [phone] Phone Care Team Providers Care University Archivist Name Role Phone Iftikhar Naik STIFF LEG DERRICK OPERATOR Primary Care Provider + Encounter Details Date Type Department Care Team (Late st Contact Info) Description 07/31/2025 Orders Only [facility] Ar[facility]ritis Center [place] [address] [place] [address] Lambert Walsh MD [address] [place] [phone] [email or web address] Dysphagia, unspecified type (Primary Dx) Social History Tobacco Use Types Packs/Day Years [...] on file documented as of this encounter Plan of Treatment Upcoming Encounters Date Type Department Care Team (Late st Contact Info) Description 08/06/2025 Procedure Pass [facility] CT Imaging, [place] [address] [place] [address] 08/20/2025 11:00 AM EDT Appointment [facility], X-Ray - [address] [address] Lambert Walsh MD [address] [place] [phone] [email or web address] 09/16/2025 10:00 AM EST Appointment [facility] CT Imaging, [place] [address] [place] [address] Lambert Walsh MD [address] [place] [phone] [email or web address] 09/16/2025 11:00 AM EST Office Visit [facility] Arthritis [facility] [address] [place] [address] Tamara Schmidt MD [address] [address] [email or web address] 09/16/2025 11:00 AM EST Office Visit [facility] Arthritis [facility] [address] [place] [address] Lambert Walsh MD [address] [place] [phone] [email or web address] Scheduled Orders Name Type Priority Associated Diagnoses Orde r Schedule FL (Speech) Video Swallow Study Imaging Routine Dysphagia, unspecified type Expected: 07/31/2025, Expires: 10/31/2025 documented as of this encounter Visit Diagnoses Diagnosis Dysphagia, unspecified type- Primary documented in this encounter Care Teams University Archivist Relationship Specialty Start Date End Date Iftikhar Naik NP [address] [facility] [place] [address] PCP - General Nurse Practitioner 07/29/25 documented as of this encounter Additional Source Comments The information contained in this document represents components of the legal health record. It is not the complete legal health record.[facility]
--- OUTSIDE RECORDS SUMMARY | 2025-08-11 08:06 | XMS_ITS | Encounter Summary ---
Author Organization [facility] Address [address] [place] [address] Phone Care Team Providers Care Dehairing Machine Tender Name Role Phone Iftikhar Naik PRODUCTION LINE MECHANIC Primary Care Provider + Reason for Referral * MRI/CAT Scan - New Request Specialty Diagnoses / Procedures Referred By Contshane t Referred To Contact Radiology Diagnoses Interstitial lung disease Procedures CT Chest Lambert Walsh MD [address] [place] [address] Phone: tel: fax: [email or web address] Referral ID Status Reason Start Date Expiration Date V isits Requested Visits Authorized [id number] New Request 08/06/2025 1 1 Encounter Details Date Type Department Care Team (Late st Contact Info) Description 08/06/2025 Orders Only [facility] Arthritis Center [place] [address] [place] [phone] Lambert Walsh MD [address] [place] [phone] [email or web address] Interstitial lung disease (Primary Dx) Social History Tobacco Use Types [...] st Contact Info) Description 08/06/2025 Procedure Pass [facility] CT Imaging, [place] [address] [place] [address] 08/20/2025 11:00 AM EDT Appointment [facility], X-Ray - [address] [address] Lambert Walsh MD [address] [place] [phone] [email or web address] 09/16/2025 10:00 AM EST Appointment [facility] CT Imaging, [place] [address] [place] [address] Lambert Walsh MD [address] [place] [phone] [email or web address] 09/16/2025 11:00 AM EST Office Visit [facility] Arthritis Center [facility] [address] [place] [address] Tamara Schmidt MD [address] [facility] [address] [place] [address] [email or web address] 09/16/2025 11:00 AM EST Office Visit [facility] Ar[facility]ritis Center [address] [place] [address] [place] [address] Lambert Walsh MD [address] [place] [address] [email or web address] Scheduled Orders Name Type Priority Associated Diagnoses Orde r Schedule CT Chest Imaging Routine Interstitial lung disease Expected: 08/06/2025, Expires: 10/29/2025 documented as of this encounter Visit Diagnoses Diagnosis Interstitial lung disease- Primary Postinflammatory pulmonary fibrosis documented in this encounter Care Teams Dehairing Machine Tender Relationship Specialty Start Date End Date Iftikhar Naik NP [address] [facility] [facility] [facility] [place] [address] PCP - General Nurse Practitioner 07/29/25 documented as of this encounter Additional Source Comments The information contained in this document represents components of the legal health record. It is not the complete legal health record.[facility]
== END 2025-08-11 08:55 | disposition home or self-care (01) ==
LOC: HO.HMCC 08:02
PROVIDERS: PCP Nurse Practitioner Family; Visit Provider Nurse Practitioner Family
DX: Z00.01 Encounter for general adult medical examination with abnormal findings (principal); R40.20 Unspecified coma; I48.19 Other persistent atrial fibrillation; G47.30 Sleep apnea, unspecified; Z12.5 Encounter for screening for malignant neoplasm of prostate

== ENCOUNTER 2025-08-22 13:07 | Outpatient (AMB) | payer BC, SELFPAY ==
[2025-08-22 13:26] VITALS: BP 122/80; PULSE 80; BMI 41.1
--- NOTE | 2025-08-22 13:26 | A.OFFVIS_ITS ---
Vital Signs 08/22/25 13:26 Height 5 ft 8 in Weight 270 lb 4.587 oz BMI 41.1 BP 122/80 Blood Pressure Location Lt brachial Position Sitting Pulse 80 Pulse Source Monitor Intake Visit Reasons: 1 mth f/up - km District Medical Examiner Required: No Accompanied by: Self / Same As Patient Allergies No Known Allergies Allergy (Verified 08/22/25 13:32) HPI Comments Details: This is a 55-year-old male patient coming in for a follow-up visit. Patient with a history of persistent AFib and hypertension who since the last visit was at [facility] for vasculitis and is now being followed by Rheumatology at [place]. Patient states that currently he is only on prednisone for management and we will be following up with [place] numerical control lathe operator. Patient notes that he has had a job change where patient is now very active and is walking about 67 miles a day. Patient also notes that he has cut down on his drinking and smoking. Patient is otherwise denying any cardiac symptoms of exertional chest pain, shortness breath, palpitations, dizziness, orthopnea, PND, leg edema, presyncope or syncope. [facility] Medical History Leukocytoclastic vasculitis Petechial rash Sleep apnea Genital herpes in men Hypertension Acid reflux GERD (gastroesophageal reflux disease) Dyslipidemia Cardiomyopathy PAF (paroxysmal atrial fibrillation) Surgical History History of placement of ear tubes History of removal of cyst Family History Father CVD (cardiovascular disease) Myocardial infarction Mother Stroke Sister No problems noted. 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 Cognitive needs: No Hearing needs: No Vision needs: Yes Review of Systems Const Denies daytime sleepiness, Denies difficulty sleeping, Denies snoring, Denies stops breathing during sleep and Denies weakness Card Denies chest pain, Denies rapid heart rate, Denies irregular heart rhythm, Denies claudication, Denies leg edema, Denies lightheadedness, Denies palpitations, Denies dyspnea, Denies dyspnea on exertion, Denies orthopnea, Denies paroxysmal nocturnal dyspnea and Denies slow heart rate Resp Denies cough, Denies dyspnea, Denies dyspnea on exertion and Denies snoring GI Reports no additional complaints, Denies hematochezia, Denies change in stool character and Denies dyspepsia Musc Denies abnormal gait, Denies muscle weakness and Denies numbness Neuro Denies abnormal gait, Denies numbness and Denies weakness Endo Denies palpitations Physical Exam Vital Signs: Last Vital Signs Pulse 80 08/22/25 13:26 BP 122/80 08/22/25 13:26 BMI result Body Mass Index 41.1 Const General: cooperative, healthy appearing, comfortable and no acute distress Orientation/consciousness: patient oriented x3 HEENT Head: Yes normal to inspection Neck Neck: Yes normal visual inspection, Yes trachea midline and Yes supple Chest Chest palpation & inspection: normal inspection of the chest Resp Effort & Inspection: normal respiratory effort Auscultation: clear to auscultation bilaterally, no crackles, no rales, no rhonchi and no wheezes Cardio Jugular venous distension: no JVD Palpation: normal PMI Rate: regular rate Rhythm: abnormal rhythm irregularly irregular Heart sounds: S1 normal heart sound present, S2 normal heart sound present, no click, no gallops, no murmurs and no rubs Peripheral pulses: Peripheral pulses 2+ throughout GI Inspection: Yes normal to inspection Palpation (GI): Soft to palpation Auscultation: normal bowel sounds Skin General skin exam: no rashes or lesions noted Neuro General: patient oriented x3 Extrem General: Yes normal to inspection, No no pedal edema and No calf tenderness Psych Appearance: grossly normal Mental Status: mental status grossly normal Speech and movement: Normal speech and movement present Office Procedures EKG Details: EKG today showed atrial fibrillation with premature ventricular complex, rate of 87 beats per minute, [place]. [id number], Complete Assessment & Plan Assessment & Plan (1) Persistent atrial fibrillation: Code(s): I48.19 - Other persistent atrial fibrillation Category: Medical Plan: EKG today shows AFib. Patient with known history of persistent AFib. Patient continues to be asymptomatic with this. Patient currently only on rate control with metoprolol. Continue the same. Baldo Vasc score of 1 and therefore not on anticoagulation at this time. Patient has been previously discussed about management options for the AFib but currently due to his issue with vasculitis, patient would like to address this before going forward with AFib management. Strongly advised on complete smoking cessation and refraining from alcohol intake. Patient verbalizes understanding and is trying to cut down. Patient understands to rechecked in the office in case of new development of symptoms with the AFib. Otherwise euvolemic and clinically stable. (2) Hypertension: Code(s): I10 - Essential (primary) hypertension Category: Medical Plan: Blood pressure is well-controlled. Continue the same. Advised monitoring blood pressures at home and maintaining a log. Ideally, blood pressure goal less than 130/80. (3) Dyslipidemia: Code(s): E78.5 - Hyperlipidemia, unspecified Category: Medical Plan: Continue statin therapy with an LDL goal less than 70. Advised on heart healthy diet, regular exercise, avoiding stimulants, losing weight, med compliance, and management of vascular risk factors. Follow up in [address] Jordan with a. In the interim, patient will call the office with any concerns or change in symptoms. This note was generated using voice recognition software. While every effort has been made to ensure accuracy and proper talent recruiter, there may be occasional errors that could affect the content or meaning of the described symptoms. Orders: Orders AMB EKG-In Office Today I48.0 - Paroxysmal atrial fibrillation Coding Level of Care Code Est Pt Level 4 (57939) Complex EM visit Add On G2211 Diagnoses Persistent atrial fibrillation I48.19 Hypertension I10 Dyslipidemia E78.5 CPT Codes EKG - CPT: 29216-Ewimslsmotdekslek, Complete ([id number]) Time Spent (min) 31 Comment Time spent in reviewing the chart, test results, assessment, counseling and documentation.
--- OUTSIDE RECORDS SUMMARY | 2025-08-22 15:09 | XMS_ITS | Clinical Summary ---
Author Organization [facility] Address [address] [facility] [address] [place] [phone] Phone Care Team Providers Care Saxophone Teacher Name Role Phone Iftikhar Naik OPTOMETRIC COORDINATOR Primary Care Provider + Allergies No known [...] Encounters Date Type Department Care Team Description 08/13/2025 Telephone [facility] Arthritis [facility] [address] [place] [address] Tamara Schmidt MD McCarter/Admin-misc 08/06/[address] [facility] [address] [place] [address] Lambert Walsh MD Interstitial lung disease (Primary Dx) 07/31/2025 11:55 AM EDT - 07/31/2025 11:59 PM EDT Hospital Encounter [facility], [address] [address] Lambert Walsh MD Discharge Disposition: Home or Self Care 07/31/2025 Orders Only [facility] Arthritis [facility] [address] [place] [address] Lambert Walsh MD Dysphagia, unspecified type (Primary Dx) 07/31/2025 Telephone [facility] Arthritis [facility] [address] [place] [address] Lambert Walsh MD Dellaripa/pt advice 07/30/2025 11:17 AM EDT - 07/30/2025 7:40 PM EDT Emergency [facility] Emergency Department [address] [place] [address] Nathan Chavarria MD Messac, Luke M, MD, PhD Discharge Disposition: Home or Self Care 07/30/2025 9:00 AM EDT Office Visit [facility] Rheumatology at [address] [place] [address] Tamara Schmidt MD Vasculitis (Primary Dx) 07/30/2025 Orders Only [facility] Arthritis [facility] [address] [place] [address] Lambert Walsh MD Aspiration into airway, initial encounter (Primary Dx) 07/30/2025 Procedure [facility] [address] [place] [address] 07/30/2025 Documentation [facility] Rheumatology at [place] [address] [place] [address] Tamara Schmidt MD 07/29/2025 Telephone [facility] [place] [address] [place] [address] Lambert Walsh MD [email or web address].new pt from Last [...] st Contact Info) Description 08/06/2025 Procedure Pass [facility] CT Imaging, [place] [address] [place] [address] 09/16/2025 10:00 AM EST Appointment [facility] CT Imaging, [place] [address] [place] [address] Lambert Walsh MD [address] [place] [phone] [email or web address] 09/16/2025 11:00 AM EST Office Visit [facility] Arthritis [facility] [address] [place] [address] Tamara Schmidt MD [address] [address] [email or web address] 09/16/2025 11:00 AM EST Office Visit [facility] Ar[facility] Center [facility] [address] [place] [address] Lambert Walsh MD [address] [place] [phone] [email or web address] Health Maintenance Due Date Last Done Comments [...] IMAGES: 183 The examination was performed by RRA, Fredrick Guadalupe. Dr. Mindy Rich was immediately available for portions of the procedure as needed. ATTESTATION: IMindy as teaching physician, have reviewed the images [...] IMAGES: 183 The examination was performed by RRAFredrick. Dr. Mindy Rich wasimmediately available for portions of the procedure as needed. ATTESTATION: Mindy Harris as teaching physician, have reviewed theimages for this case and if necessary edited the report originally createdby Fredrick Guadalupe. Lambert Walsh MD G FL MISC Final Result * T spot TB test (07/30/2025 6:09 PM EDT) T-SPOT.TB Negative Negative [facility] [employer] Comment: (NOTE) A negative test result does [...] Spot Count Corrected For Neg Control 0 [facility] Panel B Spot Count Corrected For Neg Control 2 [facility] Negative Control Passed [facility] Positive Control Passed [facility] Comment: (NOTE) For additional information, please refer to http://education.[employer]/faq/HLQ686 (This link is being provided for informational/ educational purposes only.) Blood 07/30/2025 6:09 PM EDT 07/30/2025 6:22 PM EDT Vini Calhoun PA-C LAB BLOOD ORDERABLES Final Result [facility] [address] [place], [place] * CT CHEST WITH CONTRAST (07/30/2025 5:15 PM EDT) [facility] PODIATRIC FOOT AND ANKLE SPECIALIST COMMENT Tiny nodules in the right upper and bilateral lower lobes, inflammatory and/or infectious. [facility] Anatomical Region Laterality Modality Chest Computed Tomogra [...] initiated on 07/30/2025 6:56 PM, Message ID [id number]. ATTESTATION: Lorena Harris, as teaching physician have reviewed the images, if any, for this patient's exam, and if necessary, have edited the report originally created by Kolton Schilling. Narrative 07/30/2025 6:[address] CHEST WITH CONTRAST Referring clinician's provided indication for this examination in [facility]: * Lymphadenopathy, chest or axilla; c/f [...] clinician's provided indication for this examination in [facility]: *Lymphadenopathy, chest or axilla; c/f vasculitis [...] was initiated on 07/30/2025 6:56 PM,Message ID [id number]. ATTESTATION: Lorena Harris, as teaching physician have reviewed theimages, if any, for this patient's exam, and if necessary, have edited thereport originally created by Kolton Schilling. Noel Leong PA-C IMG CT CHEST Final Re sult * Lab Add On: HgbA1C (07/30/2025 4:34 PM EDT) TEST REQUESTED HGBA1C [facility] Comments (Chemistry) Request received [facility] 07/30/2025 4:34 PM EDT 07/30/2025 4:46 PM EDT Nathan Chavarria MD LAB BLOOD ORDERABLES Fin al Result [facility] [address] [place] [phone] * (ABNORMAL) SPEP panel with immunofixation (07/30/2025 4:28 PM EDT) TOTAL PROTEIN 7.1 6.4 - 8.3 g/dL [facility] SPEP SEE PATHOLOGY REPORT [facility] IMMUNOFIXATION SEE PATHOLOGY REPORT [facility] IgA 905(H) 70 - 400 mg/dL [facility] IMMUNOGLOBULIN G 1,096 700 - 1,600 mg/dL [facility] IMMUNOGLOBULIN M 88 40 - 230 mg/dL [facility] Blood 07/30/2025 4:28 PM EDT 07/30/2025 4:39 PM EDT Vini Amorant PA-C LAB BLOOD ORDERABLES Final Result [facility] [address] [place] [address] * Rheumatoid factor (07/30/2025 4:28 PM EDT) RHEUMATOID FACTOR <13 <13 IU/ml [facility] Blood 07/30/2025 4:28 PM EDT 07/30/2025 4:40 PM EDT [facility] Mtant PA-C LAB BLOOD ORDERABLES Final Result Performing Organization Address [facility] Co de Phone Number [facility] [address] [place] [address] * Complement C3 (07/30/2025 4:28 PM EDT) C3 128 90 - 180 mg/dl [facility] Comment: Blood 07/30/2025 4:28 PM EDT 07/30/2025 4:39 PM EDT [facility] Mtant PA-C LAB BLOOD ORDERABLES Final Result Performing Organization Address City/[facility]/ZIP Co de Phone Number [facility] [address] [place] [phone] * Complement C4 (07/30/2025 4:28 PM EDT) C4 21 10 - 40 mg/dL [facility] Comment: Blood 07/30/2025 4:28 PM EDT 07/30/2025 4:39 PM EDT [facility] Bonejuan manuelant PA-C LAB BLOOD ORDERABLES Final Result Performing Organization Address City/[facility]/ZIP Co de Phone Number [facility] [address] [place] [phone] * US Temporal Artery Duplex Complete (Bilateral) [...] sign. Introductory Comments No priors. Jaw claudication. us Vini Bonenfant PA-C CV US NEUROVASCULAR Final R esult * (ABNORMAL) Urine Sediment (07/30/2025 12:40 PM EDT) WBC 1 <10 /hpf [facility] RBC 8(H) 0 - 2 /hpf [facility] BACTERIA None None /hpf [facility] SQUAMOUS CELLS Trace(A) None /hpf [facility] HYALINE CAST 0-2 0 - 2 /lpf [facility] TRANSITIONAL EPITH None None /hpf [facility] 07/30/2025 12:4 0 PM EDT 07/30/2025 12:53 PM EDT Noel P [employer] PA-C URINE ORDERABLES Final R esult Performing Organization Address [facility] de Phone Number [facility] [address] [place] [phone] * (ABNORMAL) Urinalysis w/reflex Urine Culture (07/30/2025 12:40 PM EDT) Urine Culture Reflex NO [facility] COLOR LT YELLOW(A) Yellow [facility] CLARITY Clear Clear [facility] GLUCOSE 1+(A) Negative [facility] BILI Negative Negative [facility] KETONES Negative Negative [facility] SPECIFIC GRAVITY 1.023 1.003 - 1.035 [facility] BLOOD 2+(A) Negative [facility] PH 5.5 4.5 - 8.0 [facility] Protein-UA Negative Negative [facility] UROBILINOGEN Negative Negative [facility] NITRITE Negative Negative [facility] Leukocyte esterase, ur Negative Negative [facility] Urine (Urine) 07/30/2025 12: 40 PM EDT 07/30/2025 12:53 PM EDT Appear Here PA-C URINE ORDERABLES Final R esult Performing Organization Address [facility] de Phone Number [address] [address] * Toxicology screen, urine (07/30/2025 12:40 PM EDT) URINE AMPHETAMINES Negative Negative [facility] Comment: THIS SCREENING TEST WAS PERFORMED USING IMMUNOASSAY TECHNOLOGY, WHICH MAY OCCASIONALLY YIELD FALSE NEGATIVE OR FALSE POSITIVE RESULTS. IF A DEFINITIVE RESULT IS NEEDED, FURTHER CONFIRMATORY TESTING SHOULD BE REQUESTED. URINE BENZODIAZEPINE Negative Negative [facility] Comment: THIS SCREENING TEST WAS PERFORMED USING IMMUNOASSAY TECHNOLOGY, WHICH MAY OCCASIONALLY YIELD FALSE NEGATIVE OR FALSE POSITIVE RESULTS. IF A DEFINITIVE RESULT IS NEEDED, FURTHER CONFIRMATORY TESTING SHOULD BE REQUESTED. URINE COCAINE METAB Negative Negative [facility] Comment: THIS SCREENING TEST WAS PERFORMED USING IMMUNOASSAY TECHNOLOGY, WHICH MAY OCCASIONALLY YIELD FALSE NEGATIVE OR FALSE POSITIVE RESULTS. IF A DEFINITIVE RESULT IS NEEDED, FURTHER CONFIRMATORY TESTING SHOULD BE REQUESTED. URINE OPIATES Negative Negative [facility] Comment: THIS SCREENING TEST WAS PERFORMED USING IMMUNOASSAY TECHNOLOGY, WHICH MAY OCCASIONALLY YIELD FALSE NEGATIVE OR FALSE POSITIVE RESULTS. IF A DEFINITIVE RESULT IS NEEDED, FURTHER CONFIRMATORY TESTING SHOULD BE REQUESTED. URINE OXYCODONE Negative Negative [facility] Comment: THIS SCREENING TEST WAS PERFORMED USING IMMUNOASSAY TECHNOLOGY, WHICH MAY OCCASIONALLY YIELD FALSE NEGATIVE OR FALSE POSITIVE RESULTS. IF A DEFINITIVE RESULT IS NEEDED, FURTHER CONFIRMATORY TESTING SHOULD BE REQUESTED. Fentanyl, urine Negative Negative [facility] Comment: THIS SCREENING TEST WAS PERFORMED USING IMMUNOASSAY TECHNOLOGY, WHICH MAY OCCASIONALLY YIELD FALSE NEGATIVE OR FALSE POSITIVE RESULTS. IF A DEFINITIVE RESULT IS NEEDED, FURTHER CONFIRMATORY TESTING SHOULD BE REQUESTED. CREAT 126.6 20.0 - 300.0 mg/dL [facility] Comment: Urine (Urine) 07/30/2025 12: 40 PM EDT 07/30/2025 12:53 PM EDT Noel P [employer] PA-C URINE ORDERABLES Final R esult Performing Organization Address [facility] Co de Phone Number [facility] [address] [place], [place] [phone] * Hepatitis acute panel (07/30/2025 11:50 AM EDT) HBV SURFACE ANTIGEN Nonreactive (HBsAg Negative) Nonreactive (HBsAg Negative) [facility] Hepatitis A Antibody, IgM Nonreactive Nonreactive [facility] HEP B CORE IGM AB Nonreactive Nonreactive [facility] HCV Nonreactive Nonreactive [facility] Blood 07/30/2025 11:5 0 AM EDT 07/30/2025 12:50 PM EDT Noel P [employer] PA-C LAB BLOOD ORDERABLES Fin al Result Performing Organization Address [facility] Co de Phone Number [facility] [address] [place] [phone] * Cryoglobulins (07/30/2025 11:50 AM EDT) CRYOGLOBULIN 0 0 % [facility] Blood 07/30/2025 11:5 0 AM EDT 07/30/2025 12:50 PM EDT Comment:#A1C ADDED @ 1641 PE Tracey CHAVEZ Appear Here PA-C LAB BLOOD ORDERABLES Fin al Result Performing Organization Address [facility] Co de Phone Number [facility] [address] [place] [address] * C-reactive protein, high sensitivity (07/30/2025 11:50 AM EDT) Pathologist [facility] CRP, HIGH SENSITIVITY 2.2 0.0 - 3.0 mg/L [facility] Comment: For cardiac risk assessment, reference range is <3.0mg/L. For inflammation assessment, reference range is <10.0mg/L. Blood 07/30/2025 11:5 0 AM EDT 07/30/2025 12:50 PM EDT Comment:#A1C ADDED @ 2517 PE Tracey CHAVEZ Appear Here PA-C LAB BLOOD ORDERABLES Fin al Result Performing Organization Address [facility] de Phone Number [facility] [address] [place] [phone] * HIV-1/2 antigen/antibody (07/30/2025 11:50 AM EDT) Pathologist [facility] HIV 1/2 AB/AG Nonreactive Nonreactive [facility] Comment:No HIV 1/2 antibody or HIV 1 antigen detected. Blood 07/30/2025 11:5 0 AM EDT 07/30/2025 12:50 PM EDT Appear Here PA-C LAB BLOOD ORDERABLES Fin al Result Performing Organization Address [facility] de Phone Number [facility] [address] [place] [phone] * LFTs (hepatic panel) (07/30/2025 11:50 AM EDT) Pathologist [facility] TOTAL PROTEIN 7.8 6.4 - 8.3 g/dL [facility] ALBUMIN 3.9 3.5 - 5.2 g/dL [facility] GLOBULIN 3.9 2.2 - 4.2 g/dL [facility] AST RESULT NOT REPORTED, HEMOLYSIS 10 - 50 U/L [facility] Comment: ALT RESULT NOT REPORTED, HEMOLYSIS 10 - 50 U/L [facility] Comment: ALKALINE PHOSPHATASE 81 35 - 130 U/L [facility] TOTAL BILIRUBIN 0.4 0.0 - 1.0 mg/dL [facility] DIRECT BILIRUBIN RESULT NOT REPORTED, HEMOLYSIS 0.0 - 0.3 mg/dL [facility] Blood 07/30/2025 11:5 0 AM EDT 07/30/2025 12:50 PM EDT Noel P [employer] PA-C LAB BLOOD ORDERABLES Fin al Result Performing Organization Address City/[facility] Co de Phone Number [facility] [address] [place] [phone] * Anti-Neutrophil Cytoplasmic Antibody (ANCA) (07/30/2025 11:50 AM EDT) ANCA Negative Negative [facility] ANTI-MPO AB <3.2 0 - 19 CU [facility] Comment:SEMIQUANTITATIVE MET HOD PERFORMED ANTI-PR3 <2.3 0 - 19 CU [facility] Comment:SEMIQUANTITATIVE MET HOD PERFORMED Blood 07/30/2025 11:5 0 AM EDT 07/30/2025 12:50 PM EDT Comment:#A1C ADDED @ 2295 PE R Noel P [employer] PA-C LAB BLOOD ORDERABLES Fin al Result Performing Organization Address City/State/[facility] Co de Phone Number [facility] [address] [place] [address] * (ABNORMAL) Sedimentation rate (ESR) (07/30/2025 11:50 AM EDT) ESR 21(H) 0 - 20 mm/h [facility] Comment:Erythrocyte Sediment ation Rate (ESR) reference range change effective 09/09/2019. Blood 07/30/2025 11:5 0 AM EDT 07/30/2025 12:50 PM EDT us Noel Flanagan [employer] PA-C LAB BLOOD ORDERABLES Fin al Result Performing Organization Address City/[facility]/ZIP Co de Phone Number [facility] [address] [place] [address] * PT-INR (07/30/2025 11:50 AM EDT) PT 11.3 10.0 - 13.0 sec [facility] INR 1.0 0.9 - 1.1 [facility] Blood 07/30/2025 11:5 0 AM EDT 07/30/2025 12:50 PM EDT Appear Here [employer] LAB BLOOD ORDERABLES Fin al Result Performing Organization Address [facility] de Phone Number [facility] [address] [place] [phone] * (ABNORMAL) CBC and differential (07/30/2025 11:50 AM EDT) WBC 16.42(H) 4.00 - 11.00 K/uL [facility] RBC 4.70 4.50 - 5.90 M/uL [facility] HGB 15.4 13.5 - 17.5 g/dL [facility] HCT 45.8 41.0 - 53.0 % [facility] PLT 348 150 - 450 K/uL [facility] MCV 97.4 80.0 - 100.0 fL [facility] MCH 32.8(H) 27.0 - 31.0 pg [facility] MCHC 33.6 32.0 - 36.0 g/dL [facility] RDW 12.5 11.5 - 14.5 % [facility] MPV 10.7 8.4 - 12.0 fL [facility] NRBC 0.00 0.00 /100 WBCs [facility] ABSOLUTE NRBC 0.00 0.00 K/uL [facility] DIFF METHOD Auto [facility] NEUTS 84.4(H) 48.0 - 76.0 % [facility] LYMPHS 7.9(L) 18.0 - 41.0 % [facility] MONOS 5.5 4.0 - 11.0 % [facility] EOS 0.1 0.0 - 5.0 % [facility] BASOS 0.3 0.0 - 1.5 % [facility] % IMMATURE GRANS 1.8(H) 0.0 - 0.9 % [facility] ABSOLUTE NEUTS 13.86(H) 1.92 - 7.60 K/uL [facility] Comment:1.21-5.39 cells/KL i s the reference range for individuals with the Sarabia null phenotype ABSOLUTE LYMPHS 1.30 0.72 - 4.10 K/uL [facility] ABSOLUTE MONOS 0.90 0.16 - 1.10 K/uL [facility] ABSOLUTE EOS 0.02 0.00 - 0.50 K/uL [facility] ABSOLUTE BASOS 0.05 0.00 - 0.15 K/uL [facility] ABS IMMATURE GRANS 0.29(H) 0.00 - 0.09 K/uL [facility] ABSOLUTE NEUTROPHIL COUNT 13.86(H) 1.92 - 7.60 K/uL [facility] Comment: Automated cell count. Manual ANC may differ if performed. 1.21-5.39 cells/KL is the reference range for individuals with the Sarabia null phenotype Blood 07/30/2025 11:5 0 AM EDT 07/30/2025 12:50 PM EDT Noel KNAPP[employer] LAB BLOOD ORDERABLES Fin al Result [facility] [address] [place] [phone] * Antinuclear antibody (ADIS) (07/30/2025 11:50 AM EDT) ADIS Result Negative Negative [facility] Blood 07/30/2025 11:5 0 AM EDT 07/30/2025 12:52 PM EDT Noel KNAPP-C LAB BLOOD ORDERABLES Fin al Result [facility] [address] [place] [address] * Magnesium (07/30/2025 11:50 AM EDT) MAGNESIUM 2.1 1.7 - 2.6 mg/dL [facility] Blood 07/30/2025 11:5 0 AM EDT 07/30/2025 12:50 PM EDT [facility] LAB BLOOD ORDERABLES Fin al Result Performing Organization Address [facility] de Phone Number [address] [address] * (ABNORMAL) Hemoglobin A1c (07/30/2025 11:50 AM EDT) Pathologist [facility] HEMOGLOBIN A1C 6.2(H) 4.2 - 5.6 % [facility] Comment: HbA1c levels 5.7-6.4% represent pre-diabetes, indicating impaired glucose control and an increased risk of developing diabetes. The diagnostic HbA1c level for diabetes is 6.5% or greater. HbA1c is performed by the Steve Liliana-quant immunoassay method which does not detect (incidental) hemoglobin variants. Hemoglobin electrophoresis should be ordered in patients with suspected hemoglobinopathies. CALC MEAN BLD GLUC 130 mg/dL [facility] Comment:The Calculated Mean Blood Glucose (CMBG) represents the estimated average glucose calculated from the measured hemoglobin A1c (HbA1c). There is no established normal range for the CMBG, however a 5.6% HbA1c (upper limit of normal) represents a CMBG of 114 mg/dL. 07/30/2025 11:5 0 AM EDT 07/30/2025 12:50 PM EDT Comment:#A1C ADDED @ [address] [facility]ma Flanagan [facility]-C LAB BLOOD ORDERABLES Fin al Result Performing Organization Address [facility] Co de Phone Number [address] [address] * (ABNORMAL) Basic metabolic panel (07/30/2025 11:50 AM EDT) SODIUM 134(L) 136 - 145 mmol/L [facility] POTASSIUM 5.2(H) 3.4 - 5.1 mmol/L [facility] Comment: SPECIMEN HEMOLYZED, INTERPRET WITH CAUTION. HEMOLYTIC INDEX (HI) 132. EACH 100 HI UNITS INCREASE POTASSIUM CONCENTRATION BY APPROX. 0.3 mmol/L. CHLORIDE 98 98 - 107 mmol/L [facility] CO2 19(L) 22 - 31 mmol/L [facility] BUN 26(H) 6 - 23 mg/dL [facility] CREATININE 1.08 0.50 - 1.20 mg/dL [facility] GLUCOSE 175(H) 70 - 100 mg/dL [facility] CALCIUM 9.4 8.8 - 10.7 mg/dL [facility] EGFR 81 >59 mL/min/1. 73m2 [facility] Comment:Estimated glomerular filtration rate calculated using the CKD-EPI refit equation. ANION GAP 17 7 - 17 mmol/L [facility] Blood 07/30/2025 11:5 0 AM EDT 07/30/2025 12:50 PM EDT us Noel Leong PA-C LAB BLOOD ORDERABLES [facility] al Result Performing Organization Address City/State/[facility] Co de Phone Number [facility] [address] [place] [address] * Protein Electrophoresis (07/30/2025 12:00 AM EDT) 07/30/2025 07/30/2025 Narrative [facility] - 08/05/2025 10:17 PM EDT CASE: [id number] PATIENT: MINDY WHITLEY Date: 1970 Sex: Male [facility] Department of Pathology [address] [place] [address] License No.: [id number] [employer] Hand: Erin Chambers MD, PhD Resident: Chito Powers M.D., M.S. Pathologist: Bk Tavera M.D., Ph.D. CLINICAL DATA: Clinical Diagnosis: TEST ORDERED: Serum protein electrophoresis professional interpretation - [facility] 1 Serum immunofixation electrophoresis professional interpretation - [facility] [place] RESULT: Reference range Total Protein 7.1 g/dl [...] PRIOR SERUM ELECTROPHORESIS RESULTS: Date Beta Gamma [place] Lambda K/L IgG IgA IgM MSp1 MSp2 [...] PATHOLOGY ORDERABLES Final Result Performing Organization Address City/State/[facility] Co de Phone Number [facility] [address] [place] [id number] from Last 3 Months Insurance [facility] PPO Member Subscriber Plan / Payer (Ef fective 2022-Present) Name:Mindy Whitley Member ID:[id number] Relation to Subscriber:Self Name:Mindy Whitley Subscriber ID:[id number] Payer ID:[id number] (NAIC) Type:PPO Address: [address] [id number] [place], [place] BLUE CROSS OUT OF STATE PPO BL[employer]OSS OUT OF STATE PPO Member Subscriber Plan / Payer (Ef fective 2022-) Name:Mindy Whitley Member ID:[id number] Relation to Subscriber:Self Name:Mindy Whitley Subscriber ID:[id number] Payer ID:[id number] (NAIC) Type:PPO Address: [address] BLUE CROSS OUT OF STATE PPO Member Subscriber Plan / Payer (Ef fective 2022-) Name:Mindy Whitley Member ID:[id number] Relation to Subscriber:Self Name:Mindy Whitley Subscriber ID:[id number] Payer ID:[id number] (NAIC) Type:PPO Address: [address] [place] CR[place] OUT OF STATE PPO Member Subscriber Plan / Payer ( fective 2022-Present) Name:Mindy Whitley Member ID:[id number] Relation to Subscriber:Self Name:Angi Mindy Subscriber ID:[id number] Payer ID:[id number] (NAIC) Type:PPO Address: [address] [place], [place] BLUE CROSS OUT OF STATE PPO Member Subscriber Plan / Payer ( fective 2022-) Name:Mindy Whitley Member ID:[id number] Relation to Subscriber:Self Name:Mindy Whitley Subscriber ID:[id number] Payer ID:[id number] (NAIC) Type:PPO Address: [address] [place] [address] Care Teams Saxophone Teacher Relationship Specialty Start Date End Date Iftikhar Naik NP [address] [place] [address] PCP - General Nurse Practitioner 07/29/25 Additional Source Comments The information contained in this document represents components of the legal health record. It is not the complete legal health record.[facility]
--- OUTSIDE RECORDS SUMMARY | 2025-08-22 15:09 | XMS_ITS | Encounter Summary ---
Author Organization [facility] Address [address] [place] [address] Phone Care Team Providers Care Lofter Name Role Phone Iftikhar Naik LANDSCAPE ACCOUNT MANAGER Primary Care Provider + Encounter Details Date Type Department Care Team (Late st Contact Info) Description 07/31/2025 Orders Only [facility] Arthritis Center Main [place] [address] [place] [address] Lambert Walsh MD [address] [place] [phone] [email or web address] Dysphagia, unspecified type (Primary Dx) [...] st Contact Info) Description 08/06/2025 Procedure Pass [facility] CT [facility], [place] [address] [place] [address] 09/16/2025 10:00 AM EST Appointment [facility] CT Imaging, [place] [address] [place] [address] Lambert Walsh MD [address] [place] [phone] [email or web address] 09/16/2025 11:00 AM EST Office Visit [facility] Arthritis [facility] [address] [place] [address] Tamara Schmidt MD [address] [address] [email or web address] 09/16/2025 11:00 AM EST Office Visit [facility] Arthritis [facility] [address] [place] [address] Lambert Walsh MD [address] [place] [phone] [email or web address] Scheduled Orders Name Type Priority Associated Diagnoses Orde r Schedule [place] (Speech) Video Swallow Study Imaging Routine Dysphagia, unspecified type Expected: 07/31/2025, Expires: 10/31/2025 documented as of this encounter Visit Diagnoses Diagnosis Dysphagia, unspecified type- Primary documented in this encounter Care Teams Lofter Relationship Specialty Start Date End Date Iftikhar Naik NP [address] [place] [address] [place] [address] PCP - General Nurse Practitioner 07/29/25 documented as of this encounter Additional Source Comments The information contained in this document represents components of the legal health record. It is not the complete legal health record.[facility]
--- OUTSIDE RECORDS SUMMARY | 2025-08-22 15:09 | XMS_ITS | Encounter Summary ---
Author Organization [facility] Address [address] [place] [address] Phone Care Team Providers Care Esol Instructor Name Role Phone Iftikhar Naik SALES SPECIAL AGENT Primary Care Provider + Reason for Visit * Reason Onset Date Comments Brayan/Admin-misc 08/13/2025 Encounter Details Date Type Department Care Team (Late st Contact Info) Description 08/13/2025 Telephone [facility] Arthritis Center Main [place] [address] [place] [address] Tamara Schmidt MD [address] [address] [email or web address] Brayan/Admin-misc Social History Tobacco Use Types Packs/Day Years [...] on file documented as of this encounter Progress Notes * Ana Galindo - 08/13/2025 11:59 AM EDT Good afternoon, Sandra called on behalf of the pt and stated pt need a return to work letter within the next 20 mins.She stated this is urgent and is requesting a c/b laurie. 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 Good morning, Pt's friend called to follow up re: letter needed for his work. Pls see message below: Current letter needed to revise. Kindly advise. 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 Pt missed to work yesterday, he needed to go work at 3pm today documented in this encounter Plan of Treatment Upcoming Encounters Date Type Department Care Team (Late st Contact Info) Description 08/06/2025 Procedure Pass [facility] CT [facility], [place] [address] [place] [address] 09/16/2025 10:00 AM EST Appointment [facility] CT Imaging, [place] [address] [place] [address] Lambert Walsh MD [address] [place] [address] [email or web address] 09/16/2025 11:00 AM EST Office Visit [facility] Arthritis [place] Main [place] [address] [place] [address] Tamara Schmidt MD [address] [address] [email or web address] 09/16/2025 11:00 AM EST Office Visit [facility] Arthritis [facility] 15 [place] [address] Lambert Walsh MD [address] [place] [address] [email or web address] documented as of this encounter Visit Diagnoses Not on filedocumented in this encounter Care Teams Esol Instructor Relationship Specialty Start Date End Date Iftikhar Naik NP [address] [place] [address] PCP - General Nurse Practitioner 07/29/25 documented as of this encounter Additional Source Comments The information contained in this document represents components of the legal health record. It is not the complete legal health record.[facility]
--- OUTSIDE RECORDS SUMMARY | 2025-08-22 15:09 | XMS_ITS | Encounter Summary ---
Author Organization [facility] Address [address] [place] [address] Phone Care Team Providers Care Afloat Cryptologic Manager Name Role Phone Iftikhar Naik RAILROAD TRACK REPAIR SUPERVISOR Primary Care Provider + Encounter Details Date Type Department Care Team (Late st Contact Info) Description 07/30/2025 Procedure Pass [facility] [address] [place] [address] Social History Tobacco Use Types Packs/Day Years [...] 12:58 PM EDT Gabriel Vinson RN * [place] Suicide Severity Rating Scale (Screener/Recent Self-Report) Question [...] st Contact Info) Description 08/06/[address] [facility] CT Imaging, [place] [address] [place] [address] 09/16/2025 10:[address] [facility] CT Imaging, [place] [address] [place] [address] Lambert Walsh MD [address] [place] [address] [email or web address] 09/16/2025 11:00 AM EST Office [facility] Arthritis [facility] 60 [place] [address] Tamara Schmidt MD [address] [address] [email or web address] 09/16/2025 11:00 AM EST Office Visit [facility] Arthritis [facility] [address] [place] [address] Lambert Walsh MD [address] [place] [address] [email or web address] documented as of this encounter Visit Diagnoses Not on filedocumented in this encounter Care Teams Afloat Cryptologic Manager Relationship Specialty Start Date End Date Iftikhar Naik NP [address] [facility] [place] [address] PCP - General Nurse Practitioner 07/29/25 documented as of this encounter Additional Source Comments The information contained in this document represents components of the legal health record. It is not the complete legal health record.[facility]
--- OUTSIDE RECORDS SUMMARY | 2025-08-22 15:09 | XMS_ITS | Encounter Summary ---
Author Organization [facility] Address [address] [place] [phone] Phone Care Team Providers Care Aircraft Instrument Repairer Name Role Phone Iftikhar Naik CARTON MAKING MACHINE OPERATOR Primary Care Provider + Reason for Visit * Reason Onset Date Comments [email or web address] pt 07/29/2025 Encounter Details Date Type Department Care Team (Late st Contact Info) Description 07/29/2025 Telephone [facility] Arthritis Center Main [place] [address] [place] [address] Lambert Walsh MD [address] [place] [address] [email or web address] Social History Tobacco Use [...] 12:58 PM EDT Gabriel Vinson RN * [place] Suicide Severity Rating Scale (Screener/Recent Self-Report) Question [...] the pt does not answer. 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 Access Center documented in this encounter Plan of Treatment Upcoming Encounters Date Type Department Care Team (Late st Contact Info) Description 08/06/2025 Procedure Pass [facility] CT Imaging, [place] [address] [place] [address] 09/16/2025 10:00 AM EST Appointment [facility] CT Imaging, [place] [address] [place] [address] Lambert Walsh MD [address] [place] [address] [email or web address] 09/16/2025 11:00 AM EST Office Visit [facility] Arthritis [facility] 60 [place] [address] Tamara Schmidt MD [address] [address] [email or web address] 09/16/2025 11:00 AM EST Office Visit [facility] Arthritis [facility] 15 [place] [address] Lambert Walsh MD 75 [place] [address] [email or web address] documented as of this encounter Visit Diagnoses Not on filedocumented in this encounter Care Teams Aircraft Instrument Repairer Relationship Specialty Start Date End Date Iftikhar Naik NP [address] [facility] [place] [address] PCP - General Nurse Practitioner 07/29/25 documented as of this encounter Additional Source Comments The information contained in this document represents components of the legal health record. It is not the complete legal health record.[facility]
== END 2025-08-22 13:58 | disposition home or self-care (01) ==
LOC: HO.HCS 13:08
PROVIDERS: PCP Nurse Practitioner Family
DX: I48.19 Other persistent atrial fibrillation (principal); I10 Essential (primary) hypertension; E78.5 Hyperlipidemia, unspecified
CPT/HCPCS: 93010; 99214

== ENCOUNTER → 2025-08-22 13:07 | Outpatient (BNVA) | payer BC, SELFPAY | PROVIDERS: PCP Nurse Practitioner Family | DX: I48.91 Unspecified atrial fibrillation (principal); I10 Essential (primary) hypertension; E78.5 Hyperlipidemia, unspecified | CPT/HCPCS: 93005 ==

== ENCOUNTER 2025-08-23 10:08 | Outpatient (REF) | payer BC, SELFPAY ==
--- NOTE | ~2025-08-23 | CT_ITS ---
CLINICAL HISTORY: R40.20 - Unspecified coma , LOC CT head without contrast Comparison: None Findings: No evidence of acute territorial infarct. Minimal volume loss. No hydrocephalus. No hemorrhage, mass effect, mass lesion or midline shift. No abnormal extra-axial fluid. No calvarial fracture. Paranasal sinuses and mastoid air cells are clear. Impression: No acute intracranial process. Chronic changes as detailed. This document has been electronically signed by: Main Hagan MD on 08/23/2025 12:23:20
== END 2025-08-23 10:09 | disposition home or self-care (01) ==
LOC: HO.CT 10:08
PROVIDERS: PCP Nurse Practitioner Family; Visit Provider Nurse Practitioner Family
DX: R55 Syncope and collapse (principal)
CPT/HCPCS: 70450

== ENCOUNTER → 2025-08-23 10:11 | Outpatient (BNV) | payer BC, SELFPAY | PROVIDERS: PCP Nurse Practitioner Family; Visit Provider Radiology Vascular & Interventional Radiology | DX: R40.20 Unspecified coma (principal) | CPT/HCPCS: 70450 ==

== ENCOUNTER 2025-10-03 10:04 | Outpatient (REF) | payer BC, SELFPAY ==
--- NOTE | 2025-10-03 11:20 | EEG_ITS ---
History: H/O Leukocytoclastic vasculitis, Petechial rash, Sleep apnea, Genital herpes in men, Hypertension, Acid reflux, GERD (gastroesophageal reflux disease), Dyslipidemia, Cardiomyopathy, PAF (paroxysmal atrial fibrillation) - Patient reports episodes of syncope. During these episodes, his significant other observed his eyes rolling back, but there were no convulsions or foaming at the mouth. The patient attributes these episodes to not eating and consuming alcohol, although he reports minimal intake. Medication: atorvastatin, vitamin D3, fluocinonide, lisinopril- hydrochlorothiazide, metoprolol succinate ER, omeprazole, prednisone, tadalafil, valacyclovir Technical Description Photic Stimulation: completed Hyperventilation: omitted - wearing heart monitor Behavioral State: pleasant State of Consciousness: awake and brief sleep Skull Defect: none Sedation: none Handedness: right Duration: 32 min 59 sec Grants Specialist Comments Last Meal: 10/03/25 3AM Time / date of last symptom: 08/09/25 Description: This is a 16 channel EEG with an EKG lead. Patient is reported awake and briefly asleep during the tracing. Background EEG rhythm is mostly 10-12 hertz 5-30 microvolt posteriorly lower amplitude fast anteriorly. Photic stimulation does not produce any significant abnormality. Hyperventilation is not performed. Cardiac lead does not reveal any significant abnormality. No sharp wave spikes or paroxysmal tendency noted. Impression: No significant abnormality noted on this EEG. MTDD
== END 2025-10-03 10:05 | disposition home or self-care (01) ==
LOC: HO.NEURO 10:04
PROVIDERS: PCP Nurse Practitioner Family; Visit Provider Nurse Practitioner Family
DX: R40.20 Unspecified coma (principal)
CPT/HCPCS: 95819

== ENCOUNTER → 2025-10-03 11:20 | Outpatient (BNV) | payer BC, SELFPAY | PROVIDERS: PCP Nurse Practitioner Family; Visit Provider Psychiatry & Neurology Neurology | DX: R40.20 Unspecified coma (principal) | CPT/HCPCS: 95819 ==